=== PATIENT | female | born 1955 | race Caucasian/White ===

== ENCOUNTER 2020-02-11 22:26 | Emergency (ER) | payer OTHER, SELFPAY ==
[2020-02-11 22:32] VITALS: BP 217/120; PULSE 82; RESP 16; TEMP 36.7; O2SAT 97; BMI 27.4
--- NOTE | 2020-02-11 22:39 | PC.NURSE ---
EKG done at 2240 and shown to ER doctor
--- NOTE | 2020-02-11 22:47 | PC.NURSE ---
UA collected and sent to lab
[2020-02-11 22:52] VITALS: BP 190/91; PULSE 72; RESP 16; O2SAT 96
--- NOTE | 2020-02-11 22:58 | ECG_ITS ---
Measurements Intervals [place] Rate: 81 P: 59 LA: 179 QRS: 53 QRSD: 106 T: 63 QT: 367 QTc: 427 SINUS RHYTHM Compared to ECG 10/12/2015 06:37:54 T-wave abnormality no longer present Possible ischemia no longer present Electronically Signed On 02-12-2020 16:19:45 CDT by Bety Brown M.D. [id number] f
--- NOTE | 2020-02-11 22:58 | XRR_ITS ---
PROCEDURE INFORMATION: Exam: XR Chest, 1 View Exam date and time: 02/11/2020 11:01 PM Age: 64 years old Clinical indication: Chest pain; Prior surgery; Surgery type: Stents, loop recorder; Additional info: Cp TECHNIQUE: Imaging protocol: XR of the chest Views: 1 view. COMPARISON: CR Chest 1 [place] [id number] 10/10/2015 11:10 PM FINDINGS: Tubes, catheters and devices: Electronic device suggestive of loop recorder is noted over the cardiac shadow. Heart size is normal. Mediastinum is unremarkable. Lungs: Unremarkable. No consolidation. Pleural space: No pneumothorax. Heart/Mediastinum: See Tubes, catheters and devices finding. Bones/joints: No acute findings. XR/XR chest 1V portable [id number] IMPRESSION: No acute findings.
[2020-02-11 23:22] LABS: Basophils % 0.5 %; Eosinophils # 0.2 10^3/uL (0.0-0.8); Eosinophils % 1.9 %; Hematocrit 43.7 % (37.0-47.0); Hemoglobin 14.5 g/dL (11.5-15.3); Lymphocytes # 2.3 10^3/uL (0.8-4.8); Lymphocytes % 29.2 %; Mean Corpuscular HGB Conc 33.2 g/dL (30.0-36.0); Mean Corpuscular Hemoglobin 29.2 pg (28.0-34.0); Mean Corpuscular Volume 87.9 fL (81-99); Mean Platelet Volume 10.8 fL (7.4-10.4); Monocytes # 0.7 10^3/uL (0.2-0.9); Monocytes % 8.3 %; Neutrophils # 4.6 10^3/uL (1.8-7.7); Neutrophils % 59.6 %; Nucleated Red Blood Cells % 0 %; Platelet Count 201 10^3/cmm (130-400); Red Blood Count 4.97 10^6/uL (4.1-5.3); Red Cell Distribution Width 11.9 % (12.1-15.1); White Blood Count 7.8 10^3/uL (4.0-10.0)
[2020-02-11] MEDS: nitroglycerin 1 gm/inch oint Pkt 1.5 INCH TOPICAL (23:26)
[2020-02-11 23:37] VITALS: BP 169/88; PULSE 66; RESP 16; O2SAT 96
[2020-02-11 23:40] LABS: Alanine Aminotransferase 23 U/L (0-33); Albumin Level 4.9 g/dL (3.5-5.2); Alkaline Phosphatase 71 IU/L (35-105); Anion Gap 20.1 (5-19); Aspartate Amino Transferase 21 U/L (0-32); Blood Urea Nitrogen 14 mg/dL (8-23); Calcium 10.5 mg/dL (8.5-10.5); Carbon Dioxide 22 mmol/L (22-29); Chloride 103 mmol/L (98-107); Creatinine Clr Calc Pharmacy 81.3622; Globulin 2.4 g/dL (1.3-4.6); Glomerular Filtration Rate 84.8 mL/min (90-130); Glucose 207 mg/dL (65-115); Osmolality Calculated 294 mOsm/kg (285-295); Potassium 4.1 mmol/L (3.5-5.1); Sodium 141 mmol/L (136-145); Total Bilirubin 0.2 mg/dL (0.15-1.2); Total Protein 7.3 g/dL (6.6-8.7)
[2020-02-11 23:41] LABS: Troponin(5th) Baseline 13 ng/mL (0-10)
--- NOTE | 2020-02-12 00:28 | PC.NURSE ---
EKG done at 0025 and shown to ER doctor
--- NOTE | 2020-02-12 00:58 | ECG_ITS ---
Measurements Intervals [place] Rate: 67 P: 51 HI: 181 QRS: 42 QRSD: 99 T: 79 QT: 399 QTc: 424 SINUS RHYTHM POSSIBLE ANTERIOR MYOCARDIAL INFARCTION , OF INDETERMINATE AGE [30 ms Q WAVE IN V3/V4, OR R < 0.2 mV IN V4] Compared to ECG 10/12/2015 06:37:54 Myocardial infarct finding now present T-wave abnormality no longer present Possible ischemia no longer present Electronically Signed On 02-12-2020 16:23:45 CDT by Bety Brown M.D. [id number]
[2020-02-12 01:29] LABS: Troponin 5 2HR 20.19 ng/mL (0-10); Troponin 5 2HR Delta 7.19 ABS# (0-10)
[2020-02-12 02:00] VITALS: BP 146/88; PULSE 72; RESP 16; O2SAT 96
[2020-02-12 03:15] VITALS: BP 150/90; PULSE 68; RESP 16; O2SAT 98
--- NOTE | 2020-02-12 04:50 | ED_ITS ---
HPI - Chest Pain General: Chief Complaint: Chest Pain Stated Complaint: CHEST PAIN Time Seen by Provider: 02/11/20 22:57 History of Present Illness: HPI narrative: 64-year-old lady with a history of coronary disease. She presents after an episode of chest discomfort tonight. She was quite hypertensive at home so she comes in with these complaints. She denies any significant shortness of breath, nausea, diaphoresis, etc. She denies cough or fever. She last had a cardiac intervention 3 years ago. 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 Onset (ago): hour(s) Timing of current episode: episodic Prior episodes: Yes Onset: during rest Associated symptoms: Deny abdominal pain, dyspnea, fever(s), nausea, palpitations or vomiting Review of Systems Const: Denies: fever or chills Eyes: Denies: change in vision or blurry vision ENMT: Denies: painful swallowing, swelling of lips/tongue, bleeding gums, dental pain, Change in hearing, nose bleeds, post nasal drip or facial/sinus pain Card: Reports: chest pain; Denies: palpitations, irregular heart rhythm, edema, swelling of feet/ankles, shortness of breath on exertion or shortness of breath when lying down Resp: Denies: shortness of breath, productive cough, non-productive cough or wheezing GI: Denies: abdominal pain, nausea, vomiting, rectal pain, blood in stool or black tarry stool : Denies: painful urination, urinary frequency, urinary urgency or blood in urine Musc: Denies: neck pain, back pain, redness or joint warmth Skin/Breast: Denies: rash, itching or redness Neuro: Denies: headache, dizziness, vertigo, confusion or seizure-like activity Psych: Denies: anxiety PFSH ED PFSH: Social History Smoking and tobacco status: former smoker Alcohol intake: never Marital status: Current gender identity: Female Physical Exam Const: GENERAL APPEARANCE: well developed ORIENTATION/CONSCIOUSNESS: Yes oriented to person, Yes oriented to place and Yes oriented to time HENMT: COMMON NORMALS: external ears normal and external nose normal FACE & SINUS: normal facial exam NOSE: external nose normal and no nasal discharge EXTERNAL EAR: Yes external ears normal MOUTH: tongue normal Eye: COMMON NORMALS: PERRL, EOMs intact bilaterally and conjunctivae normal EYELID: eyelids normal CONJUNCTIVA: Yes conjunctivae normal PUPIL: Yes PERRL Neck/C-Spine: CERVICAL SPINE: No cervical spine tenderness Chest: COMMONS NORMALS: inspection of chest normal CHEST: No tenderness Resp: COMMON NORMALS: clear to auscultation bilaterally EFFORT & INSPECTION: No tachypneic, No respiratory distress, No retractions, No uses accessory muscles and No tracheal deviation AUSCULTATION: clear to auscultation bilaterally, no rhonchi, no wheezes and lung sounds not diminished Cardio: COMMON NORMALS: regular rate and regular rhythm RATE: regular rate RHYTHM: regular rhythm HEART SOUNDS: no murmurs PERIPHERAL PULSES: radial pulses present GI: INSPECTION: No abdominal distension AUSCULTATION: No hyperactive bowel sounds and No hypoactive bowel sounds PALPATION: No guarding and No rigid PERCUSSION: no dullness to percussion and no tympanic to percussion Neuro: SENSORIUM/ORIENTATION: Yes oriented to person, Yes oriented to place and Yes oriented to time Psych: COMMON NORMALS: mental status grossly normal Skin: COMMON NORMALS: no rashes or lesions noted GENERAL SKIN EXAM: no rashes or lesions noted Course Vital Signs: Vital signs: Vital Signs Temperature 98.0 F 02/11/20 22:32 Pulse Rate 68 02/12/20 03:15 Respiratory Rate 16 02/12/20 03:15 Blood Pressure 150/90 02/12/20 03:15 Pulse Oximetry 98 02/12/20 03:15 MDM - Chest Pain MDM Narrative: Medical decision making narrative: 64-year-old lady presented with chest pain. She is pain-free now. She was quite hypertensive, this is improved after Nitropaste. Her troponin did not elevate at [address] segments show no acute ST changes. She had resolution of her symptoms. She liss l be allowed home for cardiology follow-up. Lab Data: Labs: Lab Results 02/11/20 02/11/20 02/11/20 Range/Units 22:50 22:50 22:50 WBC 7.8 (4.0-10.0) 10^3/ uL RBC 4.97 (4.1-5.3) 10^6/u L Hgb 14.5 (11.5-15.3) g/dL Hct 43.7 (37.0-47.0) % MCV 87.9 (81-99) fL MCH 29.2 (28.0-34.0) pg MCHC 33.2 (30.0-36.0) g/dL RDW 11.9 L (12.1-15.1) % Plt Count 201 (130-400) 10^3/c mm MPV 10.8 H (7.4-10.4) fL Neut % (Auto) 59.6 % Lymph % (Auto) 29.2 % [place] % (Auto) 8.3 % Eos % (Auto) 1.9 % Baso % (Auto) 0.5 % Neut # (Auto) 4.6 (1.8-7.7) 10^3/u L Lymph # (Auto) 2.3 (0.8-4.8) 10^3/u L [place] # (Auto) 0.7 (0.2-0.9) 10^3/u L Eos # (Auto) 0.2 (0.0-0.8) 10^3/u L Baso # (Auto) 0.0 (0.0-0.1) 10^3/u L Nucleated RBC % (a uto) 0 % Nucleated RBCs # 0.0 /100WBC Sodium 141 (136-145) mmol/L Potassium 4.1 (3.5-5.1) mmol/L Chloride 103 (98-107) mmol/L Carbon Dioxide 22 (22-29) mmol/L Anion Gap 20.1 H (5-19) BUN 14 (8-23) mg/dL Creatinine 0.7 (0.5-0.9) mg/dL GFR Calculation 84.8 L (90-130) mL/min Glucose 207 H (65-115) mg/dL Calculated Osmolal ity 294 (285-295) mOsm/k g Calcium 10.5 (8.5-10.5) mg/dL Total Bilirubin 0.2 (0.15-1.2) mg/dL AST 21 (0-32) U/L ALT 23 (0-33) U/L Alkaline Phosphata se 71 (35-105) IU/L Troponin T Baselin e 13 H (0-10) ng/mL Troponin T 120 Min [place] (0-10) ng/mL Delta Troponin T (0-10) ABS# Total Protein 7.3 (6.6-8.7) g/dL Albumin 4.9 (3.5-5.2) g/dL Globulin 2.4 (1.3-4.6) g/dL 02/12/20 Range/Units 01:05 WBC (4.0-10.0) 10^3/ uL RBC (4.1-5.3) 10^6/u L Hgb (11.5-15.3) g/dL Hct (37.0-47.0) % MCV (81-99) fL MCH (28.0-34.0) pg MCHC (30.0-36.0) g/dL RDW (12.1-15.1) % Plt Count (130-400) 10^3/c mm MPV (7.4-10.4) fL Neut % (Auto) % Lymph % (Auto) % [place] % (Auto) % Eos % (Auto) % Baso % (Auto) % Neut # (Auto) (1.8-7.7) 10^3/u L Lymph # (Auto) (0.8-4.8) 10^3/u L [place] # (Auto) (0.2-0.9) 10^3/u L Eos # (Auto) (0.0-0.8) 10^3/u L Baso # (Auto) (0.0-0.1) 10^3/u L Nucleated RBC % (a uto) % Nucleated RBCs # /100WBC Sodium (136-145) mmol/L Potassium (3.5-5.1) mmol/L Chloride (98-107) mmol/L Carbon Dioxide (22-29) mmol/L Anion Gap (5-19) BUN (8-23) mg/dL Creatinine (0.5-0.9) mg/dL GFR Calculation (90-130) mL/min Glucose (65-115) mg/dL Calculated Osmolal ity (285-295) mOsm/k g Calcium (8.5-10.5) mg/dL Total Bilirubin (0.15-1.2) mg/dL AST (0-32) U/L ALT (0-33) U/L Alkaline Phosphata se (35-105) IU/L Troponin T Baselin e (0-10) ng/mL Troponin T 120 Min [place] 20.19 H (0-10) ng/mL Delta Troponin T 7.19 (0-10) ABS# Total Protein (6.6-8.7) g/dL Albumin (3.5-5.2) g/dL Globulin (1.3-4.6) g/dL Discharge Plan Discharge Patient Disposition: Home, Self-Care Clinical Impression: Hypertension Qualifiers: Hypertension type: essential hypertension Qualified Code(s): I10 - Essential (primary) hypertension Chest pain Qualifiers: Chest pain type: unspecified Qualified Code(s): R07.9 - Chest pain, unspecified Condition: Stable Prescriptions: No Action hlgrzibffh-hcnfidntuwqpp-wjgj 50-300-40 mg capsule 1 cap PO QID PRNRF: 0 nitroglycerin [Nitrostat] 0.4 mg tablet, sublingual 0.4 mg SUBLINGUAL Q5M PRNRF: 0 hydrocortisone 2.5 % cream with applicator VA QID PRN (Reason: hemorrhoids) RF: 0 aspirin [Adult Low Dose Aspirin] 81 mg tablet,delayed release (DR/EC) 81 mg PO QDAY RF: 0 lisinopril 10 mg tablet 10 mg PO QDAY RF: 0 hydrocortisone acetate 2.5 % cream with perineal applicator 1 applic VA QDAY PRN (Reason: hemorrhoids) 90 Days Qty: 60 RF: 2 famotidine [Pepcid] 40 mg tablet 40 mg PO QDAY Qty: 90 RF: 2 zolpidem [Ambien] 5 mg tablet 5 mg PO .HS Qty: 90 RF: 0 Discharge Orders: Discharge Order (Routine); Ordered 02/12/20 Ordered By: Kian Rizzo Referrals: Naty Esqueda APN [Family Provider] - Monica Alex MD [Primary Care Provider] - 4-7 days Discharge Diet: Usual diet Discharge Activity: Increase activity as tolerated Patient Instructions: Chest Pain (ED), Hypertension (ED) Activity Restrictions/Additional Instructions: Check your blood pressure twice daily for the next several days. Write down numbers and report them to your physician. Return for repeated episodes of chest discomfort, shortness of breath, other concerning symptoms. If your blood pressure remains elevated, greater than 150 systolic or the top number, take an extra lisinopril for the day until seen by your physician. Discharge Date/Time: 02/12/20 03:29 Coding Level of Care Code ED Plant Anatomist for Loren Jones
== END 2020-02-12 03:29 | disposition home or self-care (01) ==
PROVIDERS: Emergency Provider Emergency Medicine; Family Provider Nurse Practitioner Family; PCP Family Medicine
DX: R07.9 Chest pain, unspecified (principal); I10 Essential (primary) hypertension; Z79.82 Long term (current) use of aspirin; Z87.891 Personal history of nicotine dependence
CPT/HCPCS: 12345; 71045; 80053; 84484; 85025; 93005; 99283; 99284

== ENCOUNTER → 2020-06-27 16:37 | Outpatient (BNVA) | payer OTHER, SELFPAY | PROVIDERS: Family Provider Nurse Practitioner Family; PCP Family Medicine; Visit Provider Nurse Practitioner Family | DX: Z20.828 Contact with and (suspected) exposure to other viral communicable diseases (principal) | CPT/HCPCS: 87635 ==

== ENCOUNTER → 2021-05-29 11:14 | Outpatient (BNVA) | payer OTHER, SELFPAY | PROVIDERS: Family Provider Nurse Practitioner Family; PCP Family Medicine; Visit Provider Nurse Practitioner Family | DX: Z20.822 Contact with and (suspected) exposure to COVID-19 (principal) | CPT/HCPCS: 87635 ==

== ENCOUNTER → 2021-06-04 11:08 | Outpatient (BNVA) | payer OTHER, SELFPAY | PROVIDERS: Family Provider Nurse Practitioner Family; PCP Family Medicine; Visit Provider Nurse Practitioner Family | DX: Z20.822 Contact with and (suspected) exposure to COVID-19 (principal) | CPT/HCPCS: 87635 ==

== ENCOUNTER → 2021-10-26 13:59 | Outpatient (BNVA) | payer OTHER, SELFPAY | PROVIDERS: Family Provider Nurse Practitioner Family; PCP Family Medicine; Visit Provider Nurse Practitioner Family | DX: Z20.822 Contact with and (suspected) exposure to COVID-19 (principal); J06.9 Acute upper respiratory infection, unspecified; J01.00 Acute maxillary sinusitis, unspecified | CPT/HCPCS: 87071; 87400; 87635; 87880 ==

== ENCOUNTER 2022-10-18 19:51 | Inpatient (IN) | payer OTHER, SELFPAY ==
[2022-10-18 19:56] VITALS: BMI 23.1
--- NOTE | 2022-10-18 20:03 | ECG_ITS ---
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 Measurements Intervals [place] Rate: 80 P: 131 AR: 222 QRS: 64 QRSD: 117 T: -36 QT: 386 QTc: 448 Interpretive Statements SINUS RHYTHM WITH FIRST DEGREE AV BLOCK WITH FREQUENT VENTRICULAR PREMATURE COMPLEXES IN A BIGEMINAL PATTERN POSSIBLE ANTERIOR MYOCARDIAL INFARCTION , OF INDETERMINATE AGE [30 ms Q WAVE IN V3/V4, OR R < 0.2 mV IN V4] Compared to ECG 02/12/2020 00:31:23 First degree AV block now present Myocardial infarct finding still present Electronically Signed On 10-19-2022 7:10:[address] DEPARTMENT DISPATCHER by Padmini Reese M.D. [id number] f
--- NOTE | 2022-10-18 20:20 | XRR_ITS ---
PROCEDURE INFORMATION: Exam: XR Chest Exam date and time: 10/18/2022 8:32 PM Age: 66 years old Clinical indication: Angina; Prior surgery; Surgery date: 6+ months; Additional info: Chest pain TECHNIQUE: Imaging protocol: Radiologic exam of the chest. Views: 1 view. COMPARISON: CR XR chest 1V portable [id number] 02/11/2020 11:05 PM FINDINGS: Tubes, catheters and devices: Loop recorder device noted in the left chest wall. Lungs: Hyperinflated lungs. No consolidation. Pleural spaces: Unremarkable. No pleural effusion. No pneumothorax. Heart/Mediastinum: Unremarkable. No cardiomegaly. Bones/joints: Unremarkable. XR/XR chest 1V portable [id number] IMPRESSION: No acute findings.
--- NOTE | 2022-10-18 20:27 | W.ED.CHESTPA ---
HPI - Chest Pain General: Chief Complaint: Chest Pain Stated Complaint: CP PAIN Time Seen by Provider: 10/18/22 20:09 History of Present Illness: This 66-year-old female with an extensive history of coronary artery disease and peripheral vascular disease presents to the ER with chest pain that started earlier today around 5 PM. Patient notes that she was at work at the time pain started. She describes it as a sharp stabbing pain with a lot of pressure. Pain radiated to the right jaw and right arm. She took 1 dose of nitroglycerin and when pain persisted She knew she needed to come to the hospital. She describes it as more of 6 out of 10 pressure right now. Patient adds that this reminds her of a heart attack she had in 2019. She has a history of coronary artery disease and has 4 coronary artery stents, 2 renal and one femoral stents. She has a loop recorder that was placed in December 2019. Review of Systems Const: Denies: chills, body aches or change in appetite Eyes: Denies: change in vision or eye discharge ENMT: Denies: throat pain, dental pain or nasal discharge Card: Reports: chest pain; Denies: lightheadedness : Denies: dysuria Musc: Denies: neck pain or back pain Neuro: Denies: headache(s) or weakness in extremities Psych: Denies: depression Lb/Lymph: Denies: easy bruising All/Imm: Denies: urticaria, tongue swelling or facial swelling PFS ED PFSH: Medical History (Updated 10/18/22 @ 21:47 by Nicolás Montero MD) Anemia Anxiety ASHD (arteriosclerotic heart disease) Hyperlipidemia Hypertension Insomnia Murmur PVC (premature ventricular contraction) Social History Alcohol intake: never Marital status: Current gender identity: Female Physical Exam Const: COMMON NORMALS: no acute distress, patient oriented x3, no limitations and alert HENMT: COMMON NORMALS: normocephalic HEAD & SCALP: normocephalic Eye: COMMON NORMALS: EOMs intact bilaterally Neck/C-Spine: COMMON NORMALS: full ROM and supple Chest: COMMONS NORMALS: normal inspection of the chest Resp: COMMON NORMALS: normal respiratory effort, No retractions, No use of accessory muscles and clear to auscultation bilaterally AUSCULTATION: clear to auscultation bilaterally Cardio: COMMON NORMALS: regular rate and No murmurs present (Cardio) RATE: regular rate RHYTHM: abnormal rhythm (irregular rhythm) GI: COMMON NORMALS: Normal to inspection, nondistended, normoactive bowel sounds present and non-tender : COMMON NORMALS: Yes no CVA tenderness BLADDER/KIDNEY EXAM: Yes no CVA tenderness Back/Pelvis: COMMON NORMALS: no CVA tenderness and no thoracic nor lumbar tenderness Extremity: GENERAL: Yes normal exam except as noted Neuro: COMMON NORMALS: patient oriented x3 and no focal motor deficits SENSORIUM/ORIENTATION: Yes alert Psych: COMMON NORMALS: mental status grossly normal and cooperative Course Vital Signs: Vital signs: Vital Signs Pulse Rate 57 L 10/18/22 22:31 Respiratory Rate 18 10/18/22 22:44 Blood Pressure 146/64 10/18/22 22:44 Pulse Oximetry 98 10/18/22 22:44 Oxygen Delivery Me thod 10/18/22 22:30 MDM - Chest Pain Medical Decision Making Medical decision making: Patient presents to the ER with chest pain. Work-up reveals severe hypokalemia with potassium of 2.5. Oral and IV potassium started in the ER. She will be admitted for further work-up and potassium repletion. Case discussed with Dr. Dumont who accepted patient for admission. Lab Data 10/18/22 19:17 10/18/22 19:17 Radiology Impressions Chest X-Ray 10/18/22 20:20 IMPRESSION: No acute findings. Laboratory Results WBC 8.4 10^3/uL (4.0-10.0) 10/18/22 19:17 RBC 4.95 10^6/uL (4.1-5.3) 10/18/22 19:17 Hgb 11.5 g/dL (11.5-15.3) 10/18/22 19:17 Hct 36.7 % (37.0-47.0) L 10/18/22 19:17 MCV 74.1 fl (81-99) L 10/18/22 19:17 MCH 23.2 pg (28.0-34.0) L 10/18/22 19:17 MCHC 31.3 g/dL (30.0-36.0) 10/18/22 19:17 RDW 15.9 % (12.1-15.1) H 10/18/22 19:17 Plt Count 301 10^3/cmm (130-400) 10/18/22 19:17 MPV 11.2 fL (7.4-10.4) H 10/18/22 19:17 Neut % (Auto) 61.0 % 10/18/22 19:17 Lymph % (Auto) 29.0 % 10/18/22 19:17 [place] % (Auto) 7.9 % 10/18/22 19:17 Eos % (Auto) 1.4 % 10/18/22 19:17 Baso % (Auto) 0.5 % 10/18/22 19:17 Neut # (Auto) 5.09 10^3/uL (1.8-7.7) 10/18/22 19:17 Lymph # (Auto) 2.4 10^3/uL (0.8-4.8) 10/18/22 19:17 [place] # (Auto) 0.7 10^3/uL (0.2-0.9) 10/18/22 19:17 Eos # (Auto) 0.1 10^3/uL (0.0-0.8) 10/18/22 19:17 Baso # (Auto) 0.0 10^3/uL (0.0-0.1) 10/18/22 19:17 Nucleated RBC % (auto) 0 % 10/18/22 19:17 Nucleated RBCs # 0.0 /100WBC 10/18/22 19:17 Sodium 138 mmol/L (136-145) 10/18/22 19:17 Potassium 2.5 mmol/L (3.5-5.1) L* 10/18/22 19:17 Chloride 95 mmol/L (98-107) L 10/18/22 19:17 Carbon Dioxide 29 mmol/L (22-29) 10/18/22 19:17 Anion Gap 16.5 (5-19) 10/18/22 19:17 BUN 11 mg/dL (8-23) 10/18/22 19:17 Creatinine 0.8 mg/dL (0.5-0.9) 10/18/22 19:17 GFR Calculation 72.2 mL/min (90-130) L 10/18/22 19:17 Glucose 180 mg/dL (65-115) H 10/18/22 19:17 Calculated Osmolality 290 mOsm/kg (285-295) 10/18/22 19:17 Calcium 9.8 mg/dL (8.5-10.5) 10/18/22 19:17 Total Bilirubin 0.2 mg/dL (0.15-1.2) 10/18/22 19:17 AST 15 U/L (0-32) 10/18/22 19:17 ALT 12 U/L (0-33) 10/18/22 19:17 Alkaline Phosphatase 83 U/L (35-105) 10/18/22 19:17 Troponin T Baseline 17 ng/L (0-10) H 10/18/22 19:17 Troponin T 120 [place] 21.76 ng/L (0-10) H 10/18/22 21:00 Delta Troponin T 4.76 ABS# (0-10) 10/18/22 21:00 NT-Pro-B Natriuret Pep 373 pg/mL (0-125) H 10/18/22 19:17 NT-Pro-B Natriuret Pep 380 pg/mL (0-125) H 10/18/22 19:17 Total Protein 7.7 g/dL (6.6-8.7) 10/18/22 19:17 Albumin 4.6 g/dL (3.5-5.2) 10/18/22 19:17 Globulin 3.1 g/dL (1.3-4.6) 10/18/22 19:17 Triglycerides 199 mg/dL (0-150) H 10/18/22 19:17 Cholesterol 264 mg/dL (0-200) H 10/18/22 19:17 LDL Cholesterol, Calc 151 mg/dL (50-129) H 10/18/22 19:17 HDL Cholesterol 73 mg/dL (60-100) 10/18/22 19:17 LDL/HDL Ratio 2.07 RATIO (0.00-3.22) 10/18/22 19:17 Cholesterol/HDL Ratio 3.62 mg/dL (0.0-4.40) 10/18/22 19:17 Procalcitonin 0.08 ng/mL (0-0.5) 10/18/22 19:17 TSH 2.85 uIU/mL (0.27-4.20) 10/18/22 19:17 Discharge Plan Discharge Patient Disposition: Admitted As Inpatient Admit Provider: Nkechi Dumont Clinical Impression: Acute hypokalemia, Chest pain, rule out acute myocardial infarction Condition: Stable Coding Level of Care Code ED Outsole Compressor for Chg Fwd Exam Comprehensive
[2022-10-18] MEDS: nitroglycerin 0.4 mg sublingual Tablet SUBLINGUAL ×2 (20:34→23:48)
[2022-10-18 20:35] LABS: Basophils % 0.5 %; Eosinophils # 0.1 10^3/uL (0.0-0.8); Eosinophils % 1.4 %; Hematocrit 36.7 % (37.0-47.0); Hemoglobin 11.5 g/dL (11.5-15.3); Lymphocytes # 2.4 10^3/uL (0.8-4.8); Mean Corpuscular HGB Conc 31.3 g/dL (30.0-36.0); Mean Corpuscular Hemoglobin 23.2 pg (28.0-34.0); Mean Corpuscular Volume 74.1 fl (81-99); Mean Platelet Volume 11.2 fL (7.4-10.4); Monocytes # 0.7 10^3/uL (0.2-0.9); Monocytes % 7.9 %; Neutrophils # 5.09 10^3/uL (1.8-7.7); Nucleated Red Blood Cells % 0 %; Platelet Count 301 10^3/cmm (130-400); Red Blood Count 4.95 10^6/uL (4.1-5.3); Red Cell Distribution Width 15.9 % (12.1-15.1); White Blood Count 8.4 10^3/uL (4.0-10.0)
[2022-10-18 20:45] LABS: Troponin(5th) Baseline 17 ng/L (0-10)
[2022-10-18 20:54] LABS: Alanine Aminotransferase 12 U/L (0-33); Albumin Level 4.6 g/dL (3.5-5.2); Alkaline Phosphatase 83 U/L (35-105); Anion Gap 16.5 (5-19); Aspartate Amino Transferase 15 U/L (0-32); Blood Urea Nitrogen 11 mg/dL (8-23); Calcium 9.8 mg/dL (8.5-10.5); Carbon Dioxide 29 mmol/L (22-29); Chloride 95 mmol/L (98-107); Globulin 3.1 g/dL (1.3-4.6); Glomerular Filtration Rate 72.2 mL/min (90-130); Glucose 180 mg/dL (65-115); NT Pro B Type Natriuretic Pept 373 pg/mL (0-125); Osmolality Calculated 290 mOsm/kg (285-295); Sodium 138 mmol/L (136-145); Total Bilirubin 0.2 mg/dL (0.15-1.2); Total Protein 7.7 g/dL (6.6-8.7)
[2022-10-18 20:56] LABS: Potassium 2.5 mmol/L (3.5-5.1)
[2022-10-18] MEDS: potassium chloride premix 100 ML 50 MEQ IV (21:16)
[2022-10-18] MEDS: potassium chloride ER 20 mEq Tablet 40 MEQ PO (21:17)
[2022-10-18 21:25] LABS: Troponin 5 2HR 21.76 ng/L (0-10)
[2022-10-18 21:26] LABS: Troponin 5 2HR Delta 4.76 ABS# (0-10)
--- NOTE | 2022-10-18 21:42 | P.HP_ITS ---
Providers/Chief Complaint Primary Care Provider: Monica Alex MD Chief Complaint: CP PAIN History of Present Illness Heather Young is a 66 year old female with past medical history of hyperlipidemia, hypertension, anxiety, coronary artery disease status post stents x4, 2 stents in renal arteries, 1 stent and femoral artery presented to the hospital today for chest pain that has been going on for the last 3 days. She says it overall the pain has been happening since last few weeks however in the last 3 days it has worsened. She has been given a nitro patch by her online communications specialist in [place] which she has been wearing. The pain has gotten better with that. She has been taking nitro orally as well and usually the pain goes away but now it has stayed therefore she is now using nitro patches which have helped. At this time of my evaluation she is chest pain-free. Initial troponin is 21. Rest of troponins are pending at this time. She says the pain seems like a brick sitting on her chest and feels like her previous MIs. Otherwise denies any shortness of breath. When the pain does occur it radiates to her right jaw and right arm. She says she chronically has right lower extremity weakness. She says when she had her catheter in 2019 apparently her femoral artery was stitched shut and she developed critical limb ischemia which was recognized 30 hours later. Since then she has had significant muscle loss and w eakness. She cannot walk without a cane and calf muscle support device. Patient says she is on Plavix and Xarelto at home. She lives in [facility] and wanted to go to the nearest ER therefore came to [place]. However all her cardiological care is at [place]. Her primary care doctor is Naty Valdez. At this time patient denies any nausea, vomiting, diarrhea, abdominal pain, chest pain, shortness of breath. She appears very comfortable sitting up in bed. In the ER she was found to be severely hypokalemic with a potassium of 2.5. Oral and IV potassium was given to her. Initial EKG negative for any acute ischemic changes but did show a first-degree AV block. Troponins are being trended at this time. Medications/Allergies Home Medications Medication Instructions Recorded Confirmed Last Taken Type nitroglycerin 0.4 mg sublingual 0.4 mg sublingual Q5M PRN Chest 11/04/19 10/18/22 10/18/22 21:00 History tablet (Nitrostat) Pain iqilfvkfke-zpfojkbyifevq-yvqvtnmj 1 cap PO QID PRN pain #60 caps 02/22/21 10/18/22 Unknown Rx 50 mg-300 mg-40 mg capsule clopidogrel 75 mg tablet (Plavix) 75 mg PO DAILY 08/14/21 10/18/22 10/18/22 06:00 History oxycodone-acetaminophen 10 mg-325 1 tab PO Q6H PRN pain 30 days #120 08/16/21 10/19/22 10/18/22 21:00 Rx mg tablet (Percocet) tabs Jardiance 25 mg PO 1XD 10/19/22 10/19/22 10/18/22 06:00 History Vitamin D3 Complete 10/19/22 10/18/22 06:00 History eszopiclone 3 mg tablet (Lunesta) 3 mg 10/19/22 10/17/22 21:00 History hydrochlorothiazide 25 mg tablet 25 mg PO DAILY 10/19/22 10/19/22 10/18/22 06:00 History pantoprazole 40 mg tablet,delayed 40 mg PO DAILY 10/19/22 10/19/22 10/18/22 06:00 History release potassium chloride 10 mEq 10 meq PO BID 10/19/22 10/19/22 10/17/22 18:00 History capsule,extended release rivaroxaban 2.5 mg tablet (Xarelto) 2.5 mg PO BID 10/19/22 10/19/22 10/18/22 06:00 History verapamil 240 mg tablet,extended 120 mg PO DAILY 10/19/22 10/19/22 10/18/22 06:00 History release Allergies Allergy/AdvReac Type Severity Reaction Status Date / Time iron Allergy UNK Verified 08/16/21 11:51 lansoprazole [From Prevacid] Allergy UNK Verified 08/16/21 11:51 PFSH Acute PFSH: Medical History (Updated 10/19/22 @ 04:22 by Nkechi Dumont MD) Anemia Anxiety ASHD (arteriosclerotic heart disease) Hyperlipidemia Hypertension Insomnia Murmur PVC (premature ventricular contraction) Social History Alcohol intake: never Marital status: Current gender identity: Female Vitals/I&O/Wt Weight last 48 hrs Weight 61.235 kg Physical Exam Narrative: General: Alert oriented x3, patient seen sitting up in bed appearing comfortable at this time on room air. HEENT: Normocephalic, atraumatic, EOMI, breathing normally and comfortably. No acute respiratory distress. No chest pain at this time. Cardio: Regular rate rhythm, normal S1-S2 Respiratory: Good bilateral air entry, no wheezes no rhonchi appreciated GI: Abdomen soft, nontender, nondistended, bowel sounds + Behavior: Appropriate and cooperative Extremities: No bilateral lower extremity edema. Neuro: Able to move all 4 extremities. Right leg definitely weaker than left. She is able to raise it above the bed however. Face is symmetrical. Data 10/18/22 19:17 10/18/22 19:17 A&P Assessment and plan (1) Acute hypokalemia: (2) Chest pain, rule out acute myocardial infarction: (3) Atrial fibrillation: Qualifiers: Atrial fibrillation type: persistent (not longstanding) Qualified Code(s): I48.19 - Other persistent atrial fibrillation (4) Hyperlipidemia: (5) Hypertension: Qualifiers: Hypertension type: essential hypertension Qualified Code(s): I10 - Essential (primary) hypertension (6) Unstable angina: (7) Coronary artery disease: (8) Stented coronary artery: Plan #Chest pain/unstable angina #History of CAD status post stents x4 #Peripheral vascular disease #Stented renal arteries, femoral artery #History of hyperlipidemia, hypertension #Severe hypokalemia ? Replete potassium. Keep above 4 ? Continue verapamil, pantoprazole, hydrochlorothiazide, Plavix ? Start aspirin 81 daily ? 2-hour troponin 54.27. Positive delta 4.76. ? Continue on Xarelto. It is nonformulary. Patient's daughter will bring her to the hospital in the morning. Patient states she has taken all her doses of her medications today. ? Check hemoglobin A1c, TSH, procalcitonin, lipid profile ? Check echo for wall motion abnormalities ? We will consult cardiology. Stress testing will not be available till Friday morning. ? Serial EKGs ? Start patient on heparin drip Full code DVT prophylaxis: Patient is on Xarelto. Attestations Medical Necessity Statement*: Will cross greater than 2 midnight stay for management of unstable angina Coding Level of Care Code Acute Bicycle I Assembler for Chg Fwd Diagnoses Acute hypokalemia E87.6 Chest pain, rule out acute myocardial infarction R07.9 Atrial fibrillation I48.19 Atrial fibrillation type: persistent (not longstanding) Hyperlipidemia E78.5 Hypertension I10 Hypertension type: essential hypertension Unstable angina I20.0 Coronary artery disease I25.10 Stented coronary artery Z95.5
--- NOTE | 2022-10-18 22:20 | ECG_ITS ---
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 Measurements Intervals [place] Rate: 54 P: 137 DE: 224 QRS: 63 QRSD: 99 T: 117 QT: 477 QTc: 453 Interpretive Statements SINUS BRADYCARDIA WITH FIRST DEGREE AV BLOCK POSSIBLE ANTERIOR MYOCARDIAL INFARCTION , OF INDETERMINATE AGE [30 ms Q WAVE IN V3/V4, OR R < 0.2 mV IN V4] Compared to ECG 02/12/2020 00:31:23 First degree AV block now present Sinus rhythm no longer present Myocardial infarct finding still present Electronically Signed On 10-20-2022 20:08:32 TANK TRUCK MECHANIC by Eboni Aguirre M.D. [id number]
[2022-10-18 22:26] LABS: NT Pro B Type Natriuretic Pept 380 pg/mL (0-125); Procalcitonin 0.08 ng/mL (0-0.5); Thyroid Stimulating Hormone 2.85 uIU/mL (0.27-4.20)
[2022-10-18 22:30] VITALS: BP 146/64; PULSE 52; RESP 18; O2SAT 99
[2022-10-18 22:31] VITALS: BP 178/62; PULSE 57; RESP 22; O2SAT 96
[2022-10-18 22:36] LABS: Chol HDL Ratio 3.62 mg/dL (0.0-4.40); Cholesterol 264 mg/dL (0-200); HDL Cholesterol 73 mg/dL (60-100); LDL Cholesterol Calculated 151 mg/dL (50-129); LDL HDL Ratio 2.07 RATIO (0.00-3.22); Triglycerides 199 mg/dL (0-150)
[2022-10-18 22:44] VITALS: BP 146/64; RESP 18; O2SAT 98
[2022-10-18 23:57] VITALS: BP 124/62; PULSE 64; RESP 22; TEMP 36.8; O2SAT 95
[2022-10-19] VITALS (13 sets, daily range): BP systolic 102–158; BP diastolic 49–79; PULSE 48–79; RESP 16–28; TEMP 36.6–37.3; O2SAT 93–100
--- NOTE | 2022-10-19 00:03 | PC.NURSE ---
Contacted Dr. Dumont regarding patient questions about taking xarelto & plavix at home and heparin here at hospital. Verbal order received to not give heparin.
--- NOTE | 2022-10-19 01:24 | USCV_ITS ---
Heather Young Age: 66 Gender: F : 1955 Exam Date: 10/19/2022 12:10 Ordering Phys: Nkechi Dumont MD Technologist: SERGEI Exam Location: [facility] [place] Indication: Chest pain BP: 150 / 67 HR: 56 Rhythm: Sinus Technical Quality: Adequate MEASUREMENTS (Male / Female) Normal Values 2D ECHO LV Diastolic Diameter PLAX 5.5 cm 4.2 - 5.9 / 3.9 - 5.3 cm LV Systolic Diameter PLAX 3.7 cm IVS Diastolic Thickness 0.7 cm 0.6 - 1.0 / 0.6 - 0.9 cm IVS Systolic Thickness 1.2 cm LVPW Diastolic Thickness 0.8 cm 0.6 - 1.0 / 0.6 - 0.9 cm LVPW Systolic Thickness 1.1 cm LVOT Diameter 2.3 cm LV Ejection Fraction 2D Teich 58.7 % LV Ejection Fraction MOD 2C 43.6 % LV Ejection Fraction 2C AL 45.4 % LA Diameter 3.5 cm IVC Diameter 2.1 cm M-MODE Aortic Annulus Diameter 2.5 cm LA Ao Ratio MM 1.6 MV E Point Septal Separation 1.3 cm DOPPLER AV Peak Velocity 182.0 cm/s LVOT Peak Velocity 84.0 cm/s AV Area Cont Eq vti 1.9 cm squared AV Area Cont Eq pk 1.9 cm squared MV Area PHT 3.2 cm squared Mitral E to A Ratio 0.8 MV E' Velocity 38.0 cm/s Mitral E to MV E' Ratio 11.0 Mitral E to LV E' Lateral Ratio 9.5 Mitral E to LV E' Septal Ratio 13.3 TR Peak Velocity 144.0 cm/s TR Peak Gradient 8.3 mmHg TV Peak E Velocity 57.0 cm/s PV Peak Velocity 90.3 cm/s FINDINGS Left Ventricle Severe diffuse hypokinesia of the inferolateral and lateral wall segments. Mildly dilated LV cavity. LV ejection fraction around 45%.Grade I/IV diastolic dysfunction (abnormal relaxation filling pattern), normal to mildly elevated filling pressures. Right Ventricle The right ventricle is normal in size and function. Right Atrium The right atrium is normal in size. Left Atrium Mildly increased left atrial size. Mitral Valve Thickened mitral valve. Trace mitral valve regurgitation. Aortic Valve Mild aortic valve calcification. Trace aortic valve regurgitation. Tricuspid Valve No gross abnormalities noted Pulmonic Valve No gross abnormalities noted Pericardium Normal pericardium without effusion. Aorta Normal aortic annulus size. IVC Normal inferior vena cava. CONCLUSIONS Severe diffuse hypokinesia of the inferolateral and lateral wall segments. Mildly dilated LV cavity. LV ejection fraction around 45%. Grade I/IV diastolic dysfunction (abnormal relaxation filling pattern), normal to mildly elevated filling pressures. Mildly increased left atrial size. Thickened mitral valve. Trace mitral valve regurgitation. Mild aortic valve calcification. Trace aortic valve regurgitation. There is no pericardial effusion. There are no intracardiac masses. Compared to the study from 10/12/2015, there is a significant drop in the LV ejection fraction from 64% to 45%. Dr Eboni Aguirre MD FACC (Electronically Signed) Final Date: 19 October 2022 21:19 S
--- NOTE | 2022-10-19 01:30 | ECG_ITS ---
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 Measurements Intervals [place] Rate: 58 P: 51 MO: 212 QRS: 49 QRSD: 102 T: -33 QT: 449 QTc: 442 Interpretive Statements SINUS BRADYCARDIA WITH FIRST DEGREE AV BLOCK POSSIBLE ANTERIOR MYOCARDIAL INFARCTION , OF INDETERMINATE AGE [30 ms Q WAVE IN V3/V4, OR R < 0.2 mV IN V4] Nonspecific T wave changes Compared to ECG 10/18/2022 22:39:16 No significant changes Electronically Signed On 10-20-2022 20:11:38 CLERK STENOGRAPHER by Eboni Aguirre M.D. [id number]
[2022-10-19 02:09] LABS: Estmated Average Glucose 197; Hemoglobin A1C 8.5 % (4.0-6.0)
[2022-10-19 02:45] LABS: Basophils % 0.4 %; Eosinophils # 0.1 10^3/uL (0.0-0.8); Eosinophils % 0.8 %; Hematocrit 36.6 % (37.0-47.0); Hemoglobin 11.1 g/dL (11.5-15.3); Lymphocytes # 2.2 10^3/uL (0.8-4.8); Lymphocytes % 24.1 %; Mean Corpuscular HGB Conc 30.3 g/dL (30.0-36.0); Mean Corpuscular Hemoglobin 23.4 pg (28.0-34.0); Mean Corpuscular Volume 77.1 fl (81-99); Mean Platelet Volume 10.8 fL (7.4-10.4); Monocytes # 0.7 10^3/uL (0.2-0.9); Monocytes % 7.9 %; Neutrophils # 6.01 10^3/uL (1.8-7.7); Neutrophils % 66.6 %; Nucleated Red Blood Cells % 0 %; Platelet Count 258 10^3/cmm (130-400); Red Blood Count 4.75 10^6/uL (4.1-5.3); Red Cell Distribution Width 15.9 % (12.1-15.1)
[2022-10-19 03:09] LABS: Alanine Aminotransferase 11 U/L (0-33); Albumin Level 4.2 g/dL (3.5-5.2); Alkaline Phosphatase 71 U/L (35-105); Aspartate Amino Transferase 15 U/L (0-32); Blood Urea Nitrogen 11 mg/dL (8-23); Calcium 9.2 mg/dL (8.5-10.5); Carbon Dioxide 28 mmol/L (22-29); Chloride 99 mmol/L (98-107); Globulin 2.5 g/dL (1.3-4.6); Glomerular Filtration Rate 84.2 mL/min (90-130); Glucose 157 mg/dL (65-115); Magnesium 1.9 mg/dL (1.7-2.3); Osmolality Calculated 291 mOsm/kg (285-295); Sodium 139 mmol/L (136-145); Total Bilirubin 0.2 mg/dL (0.15-1.2); Total Protein 6.7 g/dL (6.6-8.7)
[2022-10-19 03:58] LABS: Troponin 5 6HR 54.27 ng/L (0-10)
[2022-10-19 04:00] LABS: Troponin 5 6HR Delta 37.27 ng/L (0-12)
[2022-10-19] MEDS: heparin drip 25,000 UNIT/500 ML PREMIX 17.15 UNIT IV (04:40)
--- NOTE | 2022-10-19 04:40 | PC.NURSE ---
Heparin bolus and infusion started at 0440 per protocol. WiFi down unable to scan meds.
[2022-10-19] MEDS: heparin 5,000 unit/mL INJ 1 mL IV ×3 (04:45→18:06)
[2022-10-19 04:59] LABS: INR 1.04 (0.8-1.2)
[2022-10-19] MEDS: ondansetron 2 mg/ML SDV 2 mL 4 MG IVP (05:04)
[2022-10-19] MEDS: oxyCODONE-APAP 10-325 mg Tablet 1 TAB PO ×3 (07:30→20:18)
--- NOTE | 2022-10-19 08:44 | P.CONIM_ITS ---
Providers/Reason For Consult Consulting Physician/Specialty*: ADRIENNE Aguirre MD/cardiology Reason for Consult*: Patient with a history of coronary disease and previous PCI's presenting with unstable angina/elevated troponin T Requesting Physician: Dr. Dumont Attending Physician: Patrice Clifford Primary Care Provider: Monica Alex MD History of Present Illness History of Present Illness Heather Young is a 66 year old female with a history of atherosclerotic heart disease, status post multiple PCI's, renal artery stenosis, status post renal artery stenting presenting with a 3 weeks history of chest pain. She was found to have elevated troponin T. Cardiology consult is requested for further cardiac evaluation recommendations. Apparently this patient has been in her baseline state of health up until 3 weeks ago when she started having chest pains. She described as a mid substernal pain, radiated to the left side of the neck, left shoulder and to the left arm. She may have associated shortness of breath, nausea and occasional sweating. The pain may go up to 9/10 intensity. She has been having chest pains almost every day. Each time it may last for several minutes to several hours. Yesterday the pain was getting more worse. Intensity of the pain was 10/10. For that reason, she was brought to the emergency room. She denies any fever or chills. No no cough. She was applying Nitropatch on both arms to r elieve the pain. She has been getting some relief of the pain upon yesterday when she did not have much of a relief. She is being followed by a medical office administrator in the [facility] in [place]. She had several angiograms in the past She had a coronary angiogram in 2012, 2014, 2016 and 2016. She had had PCI of the RCA and LAD in the past. Most recent angiogram in 2016 revealed patent stents in the LAD and the RCA. According to have the most recent angiogram was done in this hospital by Dr. Brown In 2019, she had stenting of both renal arteries at the [facility] in [place]. According the patient, while the physician was closing the femoral arteria puncture site, accidentally the artery got occluded and she ended up in staying in the hospital for 5 weeks or so. She almost lost her right leg. She is currently having numbness of the right foot and also chronic pain. In December 2020, she presented with pain and discoloration of the right leg. She had extensive clots in the iliac and femoral arteries. She underwent intervention of these at the [facility] in [place]. Details are not available. She has a history of hypertension, dyslipidemia and type 2 diabetes. She used to take metformin but because of stomach issues, she was taken off this medication. Currently she is taking Jardiance. She was found to be severely hypokalemic yesterday. She was given IV potassium supplement. Her potassium was 2.5 which went up to 3.0 this morning. She also is taking Xarelto 2.5 mg p.o. twice daily ever since the femoral artery intervention. She took the last dose yesterday morning. She is also on Plavix. She is taking oxycodone for the leg pain. At the time of my examination her chest pain is 2/10. She also has a history of ventricular arrhythmia. She had an attempted EP study 4 years ago. She was placed on a loop recorder 4 years ago which was explanted last December and a new loop recorder is in place now. The exact reason for the implant is not clear at this time. She also has a questionable history of bradycardia. Review of Systems Narrative: CONSTITUTIONAL: No fever or chills. EYES: No blurring of vision or other visual disturbances lately. ENT: No hoarseness of voice, auditory disturbances or sore throat. CARDIOVASCULAR: As mentioned above. RESPIRATORY: No significant cough. GASTROINTESTINAL: As mentioned above. As mentioned above GENITOURINARY: No dysuria or hematuria. INTEGUMENTARY: No skin rashes or history of skin cancer. NEURO: No transient ischemic attacks or amaurosis. PSYCHIATRIC: No history of psychosis or major depression. HEMATOLOGIC: Patient is on Xarelto. ENDOCRINE: Type 2 diabetes as mentioned above. MUSCULOSKELETAL: Chronic right foot pain and numbness, according the patient ALLERGY/IMMUNOLOGY: As mentioned above. Medications/Allergies Home Medications Medication Instructions Recorded Confirmed Last Taken Type nitroglycerin 0.4 mg sublingual 0.4 mg sublingual Q5M PRN Chest 11/04/19 10/18/22 10/18/22 21:00 History tablet (Nitrostat) Pain [id number] 1 cap PO QID PRN pain #60 caps 02/22/21 10/18/22 Unknown Rx 50 mg-300 mg-40 mg capsule clopidogrel 75 mg tablet (Plavix) 75 mg PO DAILY 08/14/21 10/18/22 10/18/22 06:00 History oxycodone-acetaminophen 10 mg-325 1 tab PO Q6H PRN pain 30 days #120 08/16/21 10/19/22 10/18/22 21:00 Rx mg tablet (Percocet) tabs Jardiance 25 mg PO 1XD 10/19/22 10/19/22 10/18/22 06:00 History Vitamin D3 Complete 10/19/22 10/18/22 06:00 History eszopiclone 3 mg tablet (Lunesta) 3 mg 10/19/22 10/17/22 21:00 History hydrochlorothiazide 25 mg tablet 25 mg PO DAILY 10/19/22 10/19/22 10/18/22 06:00 History pantoprazole 40 mg tablet,delayed 40 mg PO DAILY 10/19/22 10/19/22 10/18/22 06:00 History release potassium chloride 10 mEq 10 meq PO BID 10/19/22 10/19/22 10/17/22 18:00 History capsule,extended release rivaroxaban 2.5 mg tablet (Xarelto) 2.5 mg PO BID 10/19/22 10/19/22 10/18/22 06:00 History verapamil 240 mg tablet,extended 120 mg PO DAILY 10/19/22 10/19/22 10/18/22 06:00 History release Allergies Allergy/AdvReac Type Severity Reaction Status Date / Time amoxicillin [From Augmentin] Allergy Unknown Verified 10/19/22 09:36 clavulanic acid Allergy Unknown Verified 10/19/22 09:36 [From Augmentin] iron Allergy UNK Verified 10/19/22 09:36 lansoprazole [From Prevacid] Allergy UNK Verified 10/19/22 09:36 morphine Allergy ADR-Nausea Verified 10/19/22 09:36 Current Medications Generic Name Dose Route Start Last Admin Trade Name Freq PRN Reason Stop Dose Admin Heparin Sodium (Porcine) 0 unit 10/19/22 04:09 10/19/22 04:45 Heparin 5,000 Unit/Ml Inj 1 Ml IV 3,100 unit PRN PRN Administration Heparin weight-base protocol Protocol Heparin Sodium/Sodium Chloride 25,000 unit in 500 mls @ 0 mls/hr 10/19/22 04:15 10/19/22 04:40 Heparin Drip IV 14 unit/kg/hr .Q0M DEMETRIS 17.15 mls/hr Administration Protocol Per Protocol Nitroglycerin 0.4 mg 10/18/22 20:20 10/18/22 23:48 Nitroglycerin 0.4 Mg Sublingual Tablet SUBLINGUAL 0.4 mg Q5M PRN Administration CHEST PAIN Ondansetron HCl 4 mg 10/18/22 21:46 10/19/22 05:04 Ondansetron 2 Mg/Ml Sdv 2 Ml IVP 4 mg Q8H PRN Administration vomiting, or N/V if npo Oxycodone/Acetaminophen 1 tab 10/19/22 01:23 10/19/22 07:30 Oxycodone-Apap 10-325 Mg Tablet PO 1 tab Q6H PRN Administration pain PFSH Acute PFSH: Medical History Anemia Anxiety ASHD (arteriosclerotic heart disease) Hyperlipidemia Hypertension Insomnia Murmur PVC (premature ventricular contraction) Social History Alcohol intake: never Marital status: Current gender identity: Female Vitals/I&O/Wt Last Vital Signs Temp 99.1 F 10/19/22 07:19 Pulse 60 10/19/22 07:19 Resp 16 10/19/22 07:30 BP 158/74 10/19/22 07:19 Pulse Ox 100 10/19/22 07:30 O2 Del Method 10/19/22 03:41 10/18/22 10/19/22 10/19/22 22:59 06:59 14:59 Intake Total 480 / 480 360 / 360 Balance 480 / 480 360 / 360 Weight last 48 hrs Weight 135 lb Physical Exam Narrative: GENERAL: The patient is alert and oriented times three. Not in any acute distress. HEENT: No significant pallor, icterus or lymphadenopathy.Oral cavity: There are no mucous membrane lesions. NECK: Trachea appears to be central. No masses noted. No JVD or thyromegaly appreciated. RESPIRATORY: Chest is symmetrical. No intercostals muscle retraction or any accessory muscle activation. There is no chest wall tenderness. Breath sounds are heard bilaterally. No rales or rhonchi heard. No evidence of any consolidation. BREASTS: Deferred. HEART: The heart sounds are normal. No S3 or S4. No significant murmurs. No pericardial rub ABDOMEN: No vessel pulsations or distention. No tenderness. No organomegaly appreciated. Bowel sounds are normally heard. : Deferred. RECTAL: Deferred. LYMPHATIC: No lymphadenopathy noted in the neck. EXTREMITIES: The dorsalis pedis and posterior at the right foot is nonpalpable. On the left side, the dorsalis pedis and posterior tibial pulses are palpable but weak. Good femoral pulses bilaterally. MUSCULOSKELETAL: No acute joint deformities or swelling SKIN: There are no significant rashes or ecchymosis NEUROPSYCHIATRIC: The patient is alert and oriented x3. Appears to be in a good mood. No tremors or rigidity noted. Data 10/19/22 02:20 10/19/22 02:20 Other Labs: Laboratory Last Values WBC 9.0 10^3/uL (4.0-10.0) 10/19/22 02:20 RBC 4.75 10^6/uL (4.1-5.3) 10/19/22 02:20 Hgb 11.1 g/dL (11.5-15.3) L 10/19/22 02:20 Hct 36.6 % (37.0-47.0) L 10/19/22 02:20 MCV 77.1 fl (81-99) L 10/19/22 02:20 MCH 23.4 pg (28.0-34.0) L 10/19/22 02:20 MCHC 30.3 g/dL (30.0-36.0) 10/19/22 02:20 RDW 15.9 % (12.1-15.1) H 10/19/22 02:20 Plt Count 258 10^3/cmm (130-400) 10/19/22 02:20 MPV 10.8 fL (7.4-10.4) H 10/19/22 02:20 Neut % (Auto) 66.6 % 10/19/22 02:20 Lymph % (Auto) 24.1 % 10/19/22 02:20 [place] % (Auto) 7.9 % 10/19/22 02:20 Eos % (Auto) 0.8 % 10/19/22 02:20 Baso % (Auto) 0.4 % 10/19/22 02:20 Neut # (Auto) 6.01 10^3/uL (1.8-7.7) 10/19/22 02:20 Lymph # (Auto) 2.2 10^3/uL (0.8-4.8) 10/19/22 02:20 [place] # (Auto) 0.7 10^3/uL (0.2-0.9) 10/19/22 02:20 Eos # (Auto) 0.1 10^3/uL (0.0-0.8) 10/19/22 02:20 Baso # (Auto) 0.0 10^3/uL (0.0-0.1) 10/19/22 02:20 Nucleated RBC % (auto) 0 % 10/19/22 02:20 Nucleated RBCs # 0.0 /100WBC 10/19/22 02:20 PT 14.00 SECONDS (12.1-14.9) 10/19/22 02:20 INR 1.04 (0.8-1.2) 10/19/22 02:20 Sodium 139 mmol/L (136-145) 10/19/22 02:20 Potassium 3.0 mmol/L (3.5-5.1) L 10/19/22 02:20 Chloride 99 mmol/L (98-107) 10/19/22 02:20 Carbon Dioxide 28 mmol/L (22-29) 10/19/22 02:20 Anion Gap 15.0 (5-19) 10/19/22 02:20 BUN 11 mg/dL (8-23) 10/19/22 02:20 Creatinine 0.7 mg/dL (0.5-0.9) 10/19/22 02:20 GFR Calculation 84.2 mL/min (90-130) L 10/19/22 02:20 Glucose 157 mg/dL (65-115) H 10/19/22 02:20 Estimat Average Glucose 197 10/18/22 19:17 Hemoglobin A1c 8.5 % (4.0-6.0) H 10/18/22 19:17 Calculated Osmolality 291 mOsm/kg (285-295) 10/19/22 02:20 Calcium 9.2 mg/dL (8.5-10.5) 10/19/22 02:20 Magnesium 1.9 mg/dL (1.7-2.3) 10/19/22 02:20 Total Bilirubin 0.2 mg/dL (0.15-1.2) 10/19/22 02:20 AST 15 U/L (0-32) 10/19/22 02:20 ALT 11 U/L (0-33) 10/19/22 02:20 Alkaline Phosphatase 71 U/L (35-105) 10/19/22 02:20 Troponin T Baseline 17 ng/L (0-10) H 10/18/22 19:17 Troponin T 120 Minute 21.76 ng/L (0-10) H 10/18/22 21:00 Delta Troponin T 4.76 ABS# (0-10) 10/18/22 21:00 Troponin T Hi Sens 6Hr 54.27 ng/L (0-10) H 10/19/22 02:20 Troponin T Hi Sens 6Hr Delta 37.27 ng/L (0-12) H* 10/19/22 02:20 NT-Pro-B Natriuret Pep 373 pg/mL (0-125) H 10/18/22 19:17 NT-Pro-B Natriuret Pep 380 pg/mL (0-125) H 10/18/22 19:17 Total Protein 6.7 g/dL (6.6-8.7) 10/19/22 02:20 Albumin 4.2 g/dL (3.5-5.2) 10/19/22 02:20 Globulin 2.5 g/dL (1.3-4.6) 10/19/22 02:20 Triglycerides 199 mg/dL (0-150) H 10/18/22 19:17 Cholesterol 264 mg/dL (0-200) H 10/18/22 19:17 LDL Cholesterol, Calc 151 mg/dL (50-129) H 10/18/22 19:17 HDL Cholesterol 73 mg/dL (60-100) 10/18/22 19:17 LDL/HDL Ratio 2.07 RATIO (0.00-3.22) 10/18/22 19:17 Cholesterol/HDL Ratio 3.62 mg/dL (0.0-4.40) 10/18/22 19:17 Procalcitonin 0.08 ng/mL (0-0.5) 10/18/22 19:17 TSH 2.85 uIU/mL (0.27-4.20) 10/18/22 19:17 CXR: My impression: Normal cardiac silhouette. No lung infiltrate. No acute pathology. EKG 1: My Interpretation: Sinus bradycardia with a rate of [address] changes. Poor R wave progression. Nonspecific IVCD. A&P Assessment and plan (1) Atherosclerotic heart disease of [place] coronary artery with unstable angina pectoris: The patient's symptoms are suggestive of unstable angina. Hemodynamically she seems to be stable. She has clinical evidence of a non-ST elevation myocardial infarction. She continues to have chest pain but has significantly improved. At this point, she may be treated with subcu Lovenox, Plavix, aspirin, statin and other symptomatic measures. Echocardiogram will be helpful to evaluate LV function and rule out any other pathology. (2) NSTEMI (non-ST elevated myocardial infarction): The 2-hour and 6-hour troponin T's have Significant delta. EKG shows diffuse nonspecific ST changes. Patient is known to have atherosclerotic heart disease, multiple PCI's. We will try to get the medical records from [facility] and also from the [facility]. Patient may require a repeat coronary angiogram to reevaluate the coronary status as well as the stent status. (3) Renal artery stenosis: This patient had bilateral renal artery stenting. May continue on the current medications. 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 Good femoral pulses (5) Acute hypokalemia: Potassium level is improving. Continue supplement. (6) Re-entry ventricular arrhythmia: (7) Implantable loop recorder present: No documented malignant ventricular arrhythmia. Continue the monitoring (8) Hyperlipidemia: We will continue on the current medications. (9) Hypertension: Will optimize antihypertensive medications. Qualifiers: Hypertension type: essential hypertension Qualified Code(s): I10 - Essential (primary) hypertension (10) T2DM (type 2 diabetes mellitus): May continue the Jardiance. Blood sugar management as per the primary Consult Attestations Medical Necessity Statement: Patient requires a cardiac catheterization to further evaluate her coronary status and decide on further management. Since she has been taking the Xarelto, we may pay for 48 hours of this medication to proceed with the angiogram. Also would like to see the potassium level improving to an acceptable level. I will review the echocardiogram. Based on the patient's clinical progress, further recommendations will be made. Thank you for the opportunity to evaluate this patient and make these recommendations Other Attestations: Other Attestations: Patient requires continued hospital stay for close monitoring and further manage ment Coding Level of Care Code Acute Lab Manager for Loren Jones History Detailed Medical Decision Making High Complexity Diagnoses Atherosclerotic heart disease of [place] coronary artery with unstable angina pectoris I25.110 NSTEMI (non-ST elevated myocardial infarction) I21.4 Renal artery stenosis I70.1 Femoral artery occlusion, right I70.201 Acute hypokalemia E87.6 Re-entry ventricular arrhythmia I47.0 Implantable loop recorder present Z95.818 Hyperlipidemia E78.5 Hypertension I10 Hypertension type: essential hypertension T2DM (type 2 diabetes mellitus) E11.9
[2022-10-19] MEDS: clopidogrel 75 mg Tablet PO (09:37)
[2022-10-19] MEDS: verapamil ER 240 mg Tablet 120 MG PO (09:47)
[2022-10-19] MEDS: pantoprazole DR 40 mg Tablet PO (09:47)
--- NOTE | 2022-10-19 09:52 | PC.PHAR ---
pt states she takes care of her own medications-rx filled 06/02/22 90d/s verapamil er 240mg tabs take 120mg daily pt states it was increased to 240mg daily but states for the last 2-3 weeks she has been taking 240mg qam 120mg at noon and 120-240mg hs prn-pt states she is still taking kcl 10meq hs ext med history shows last filled 06/02/22 90d/s-pt states she has nateglinide 60mg tid prn but states she hasnt ever needed to take it ext med history shows last filled 09/21/22 90d/s-notes are made in the pharmacy comments
[2022-10-19 10:35] LABS: Partial Thromboplastin Time 47.2 SECONDS (23.9-36.7)
[2022-10-19 12:01] LABS: Glucose Point of Care 107 mg/dL (70-110)
--- NOTE | 2022-10-19 13:58 | P.PN_ITS ---
Subjective Subjective: She is still having some chest discomfort, pain and pressure. At home uses nitroglycerin patch she states 0.4 mg, although we do not have that on record. No trouble breathing. Early in the morning had some nausea but this has not improved. No vomiting, no diarrhea. No abdominal pain. Vitals/I&O/Wt Last Vital Signs Temp 99.1 F 10/19/22 07:19 Pulse 79 10/19/22 11:40 Resp 28 H 10/19/22 13:48 BP 150/67 10/19/22 11:38 Pulse Ox 93 10/19/22 13:48 O2 Del Method 10/19/22 03:41 10/18/22 10/19/22 10/19/22 22:59 06:59 14:59 Intake Total 480 / 480 474.619 / 474.619 Balance 480 / 480 474.619 / 474.619 Weight last 48 hrs Weight 61.235 kg Physical Exam Const: COMMON NORMALS: patient oriented x3 and alert GENERAL APPEARANCE: cooperative ORIENTATION/CONSCIOUSNESS: Yes awake HENMT: COMMON NORMALS: oropharynx normal Neck/C-Spine: COMMON NORMALS: no JVD Resp: COMMON NORMALS: normal respiratory effort and clear to auscultation bilaterally AUSCULTATION: clear to auscultation bilaterally Cardio: COMMON NORMALS: no JVD, regular rhythm, S1 normal heart sound present, S2 normal heart sound present and No murmurs present (Cardio) RHYTHM: regular rhythm HEART SOUNDS: S1 normal heart sound present and S2 normal heart sound present GI: COMMON NORMALS: Normal to inspection, nondistended, normoactive bowel sounds present, Soft to palpation and non-tender PALPATION: Yes Soft to palpation Extremity: COMMON NORMALS: no joint enlargement and no pedal edema Neuro: COMMON NORMALS: patient oriented x3 and moves all extremities SENSORIUM/ORIENTATION: Yes alert Skin: COMMON NORMALS: no rashes or lesions noted GENERAL SKIN EXAM: no rashes or lesions noted Data 10/19/22 02:20 10/19/22 02:20 A&P Assessment and plan (1) NSTEMI (non-ST elevated myocardial infarction): Still having some discomfort. Add nitroglycerin patch. Oxycodone as needed. Continue heparin drip. Holding Xarelto. Plans for additional assessment with coronary angiography with cardiology. Add aspirin and statin. (2) Acute hypokalemia: (3) Chest pain, rule out acute myocardial infarction: (4) Atrial fibrillation: Qualifiers: Atrial fibrillation type: persistent (not longstanding) Qualified Code(s): I48.19 - Other persistent atrial fibrillation (5) Hyperlipidemia: (6) Hypertension: Qualifiers: Hypertension type: essential hypertension Qualified Code(s): I10 - Essential (primary) hypertension (7) Unstable angina: (8) Coronary artery disease: (9) Stented coronary artery: Plan #Severe hypokalemia: Additional potassium replacement 60 milliequivalents. Follow-up additional mag level in the morning. #Chest pain/unstable angina #History of CAD status post stents x4 #Peripheral vascular disease #Stented renal arteries, femoral artery #History of hyperlipidemia, hypertension Full code DVT prophylaxis: Patient is on Xarelto. Attestations Medical Necessity Statement*: Continue admission for assessment management of NSTEMI, severe hypokalemia. Coding Level of Care Code Acute Maintenance Machine Repairer for [facility] Robert Diagnoses NSTEMI (non-ST elevated myocardial infarction) I21.4 Acute hypokalemia E87.6 Chest pain, rule out acute myocardial infarction R07.9 Atrial fibrillation I48.19 Atrial fibrillation type: persistent (not longstanding) Hyperlipidemia E78.5 Hypertension I10 Hypertension type: essential hypertension Unstable angina I20.0 Coronary artery disease I25.10 Stented coronary artery Z95.5
[2022-10-19] MEDS: hydroCHLOROthiazide 25 mg Tablet PO (14:50)
[2022-10-19] MEDS: potassium chloride ER 20 mEq Tablet 60 MEQ PO (14:50)
[2022-10-19] MEDS: aspirin 325 mg Tablet PO (14:50)
[2022-10-19 16:48] LABS: Glucose Point of Care 176 mg/dL (70-110)
[2022-10-19 17:02] LABS: Partial Thromboplastin Time 54.1 SECONDS (23.9-36.7)
[2022-10-19] MEDS: insulin lispro 100 unit/1 mL SUBCUT (17:14)
[2022-10-19 21:31] LABS: Glucose Point of Care 175 mg/dL (70-110)
[2022-10-19] MEDS: atorvastatin 40 mg Tablet PO (21:48)
[2022-10-19 23:22] LABS: Partial Thromboplastin Time 63.9 SECONDS (23.9-36.7)
[2022-10-20] VITALS (48 sets, daily range): BP systolic 116–162; BP diastolic 63–112; PULSE 45–83; RESP 16–32; TEMP 36.6–37.1; O2SAT 89–99
[2022-10-20] MEDS: oxyCODONE-APAP 10-325 mg Tablet 1 TAB PO ×2 (06:00→18:16)
[2022-10-20 06:27] LABS: Basophils % 0.6 %; Eosinophils # 0.1 10^3/uL (0.0-0.8); Hemoglobin 10.6 g/dL (11.5-15.3); Lymphocytes # 2.2 10^3/uL (0.8-4.8); Lymphocytes % 31.2 %; Mean Corpuscular HGB Conc 28.6 g/dL (30.0-36.0); Mean Corpuscular Hemoglobin 22.8 pg (28.0-34.0); Mean Corpuscular Volume 79.6 fl (81-99); Mean Platelet Volume 11.5 fL (7.4-10.4); Monocytes # 0.5 10^3/uL (0.2-0.9); Monocytes % 7.4 %; Neutrophils # 4.13 10^3/uL (1.8-7.7); Neutrophils % 58.4 %; Nucleated Red Blood Cells % 0 %; Platelet Count 221 10^3/cmm (130-400); Red Blood Count 4.65 10^6/uL (4.1-5.3); Red Cell Distribution Width 16.5 % (12.1-15.1); White Blood Count 7.1 10^3/uL (4.0-10.0)
[2022-10-20 06:41] LABS: Glucose Point of Care 139 mg/dL (70-110)
[2022-10-20 06:53] LABS: Anion Gap 14.3 (5-19); Blood Urea Nitrogen 12 mg/dL (8-23); Carbon Dioxide 25 mmol/L (22-29); Chloride 102 mmol/L (98-107); Glomerular Filtration Rate 84.2 mL/min (90-130); Glucose 118 mg/dL (65-115); Magnesium 1.9 mg/dL (1.7-2.3); Osmolality Calculated 287 mOsm/kg (285-295); Potassium 3.3 mmol/L (3.5-5.1); Sodium 138 mmol/L (136-145)
[2022-10-20 06:55] LABS: Partial Thromboplastin Time 60.2 SECONDS (23.9-36.7)
[2022-10-20 07:00] LABS: Troponin T (5th) Once 231 ng/L (0-10)
--- NOTE | 2022-10-20 07:23 | ECG_ITS ---
[facility] Test Date: 2022-10-20 Pat Name: Heather Young Department: Room: 103 Gender: Female Garbage Person: : 1955 Requested By: Eboni Aguirre Order Number: [id number] Gee MD: Eboni Aguirre M.D. Measurements Intervals [place] Rate: 41 P: 62 TN: 186 QRS: 77 QRSD: 107 T: -76 QT: 531 QTc: 439 Interpretive Statements SINUS BRADYCARDIA POSSIBLE ANTERIOR MYOCARDIAL INFARCTION , OF INDETERMINATE AGE [30 ms Q WAVE IN V3/V4, OR R < 0.2 mV IN V4] MODERATE T-WAVE ABNORMALITY, CONSIDER LATERAL ISCHEMIA [-0.1+ mV T-WAVE IN I/aVL/V5/V6] MODERATE T-WAVE ABNORMALITY, CONSIDER INFERIOR ISCHEMIA [-0.1+ mV T-WAVE IN II/aVF] Nonspecific ST changes in the inferior and anterolateral leads Compared to ECG 10/19/2022 01:57:45 T-wave abnormality now present Possible ischemia now present First degree AV block no longer present Myocardial infarct finding still present Electronically Signed On 10-20-2022 20:02:42 DIRT SHOVELER by Eboni Aguirre M.D. [email or web address]
[2022-10-20] MEDS: ondansetron 2 mg/ML SDV 2 mL 4 MG IVP ×3 (07:44→21:00)
[2022-10-20] MEDS: nitroglycerin 0.4 mg sublingual Tablet SUBLINGUAL (07:44)
[2022-10-20] MEDS: nitroglycerin drip 50 MG/250 ML PREMIX IV (08:01)
[2022-10-20] MEDS: HYDROmorphone 1 mg/mL INJ 1 mL 0.5 MG IVP ×3 (08:18→09:19)
[2022-10-20] MEDS: LORazepam 2 mg/mL INJ 1 mL 0.5 MG IVP ×2 (08:20→09:06)
--- NOTE | 2022-10-20 08:54 | PM.PN ---
Subjective Subjective: This morning she woke up without pain, then after returning from the restroom started having slight pain which went away after she got settled in bed. She then tried to settle in for a nap, but subsequently woke up with a progressively and rapidly increasing chest pain, central, accompanied by pressure also and she states Radiating to the back. Accompanied by nausea. Also noted to have bradycardia in the 40s, at time dropping down into the 30s. The morning team contact with her photography professor. Pacer pads applied, atropine was prepared. She received Zofran. Started on nitroglycerin drip. Received Dilaudid, Ativan with slight improvement. CTA chest ordered to visualize great vessels. Troponin noted elevated 232. EKG with sinus bradycardia, T wave changes suggestive of inferolateral ischemia. Discussed with photography professor. Preparations for Out Of School Hours Care Worker as soon as possible with request to cancel CTA so as not to delay with additional evaluation in Out Of School Hours Care Worker. Given additional Dilaudid and Ativan for pain and anxiety. Vitals/I&O/Wt Last Vital Signs Temp 97.8 F 10/20/22 03:32 Pulse 58 L 10/20/22 07:14 Resp 29 H 10/20/22 08:18 BP 138/68 10/20/22 07:14 Pulse Ox 95 10/20/22 08:18 O2 Del Method 10/20/22 03:32 10/19/22 10/20/22 10/20/22 22:59 06:59 14:59 Intake Total 611.5 / 1446.119 0.7 / 0.7 Balance 611.5 / 1446.119 0.7 / 0.7 Weight last 48 hrs Weight 61.235 kg Physical Exam Const: COMMON NORMALS: patient oriented x3 and alert GENERAL APPEARANCE: cooperative ORIENTATION/CONSCIOUSNESS: Yes awake HENMT: COMMON NORMALS: oropharynx normal Neck/C-Spine: COMMON NORMALS: no JVD Resp: COMMON NORMALS: normal respiratory effort and clear to auscultation bilaterally AUSCULTATION: clear to auscultation bilaterally Cardio: COMMON NORMALS: no JVD, regular rhythm, S1 normal heart sound present, S2 normal heart sound present and No murmurs present (Cardio) RHYTHM: regular rhythm HEART SOUNDS: S1 normal heart sound present and S2 normal heart sound present GI: COMMON NORMALS: Normal to inspection, nondistended, normoactive bowel sounds present, Soft to palpation and non-tender PALPATION: Yes Soft to palpation Extremity: COMMON NORMALS: no joint enlargement and no pedal edema Neuro: COMMON NORMALS: patient oriented x3 and moves all extremities SENSORIUM/ORIENTATION: Yes alert Skin: COMMON NORMALS: no rashes or lesions noted GENERAL SKIN EXAM: no rashes or lesions noted Data 10/20/22 05:50 10/20/22 05:50 A&P Assessment and plan (1) NSTEMI (non-ST elevated myocardial infarction): Overnight chest pain-free, slept well. This morning recurrence of severe chest pain. Nausea, sinus bradycardia. Add nitroglycerin patch. Oxycodone as needed. Continue heparin drip. Holding Xarelto. Plans for additional assessment with coronary angiography with cardiology. Add aspirin and statin. (2) Acute hypokalemia: Replace additional potassium. (3) Chest pain, rule out acute myocardial infarction: (4) Atrial fibrillation: Qualifiers: Atrial fibrillation type: persistent (not longstanding) Qualified Code(s): I48.19 - Other persistent atrial fibrillation (5) Hyperlipidemia: (6) Hypertension: Qualifiers: Hypertension type: essential hypertension Qualified Code(s): I10 - Essential (primary) hypertension (7) Unstable angina: (8) Coronary artery disease: (9) Stented coronary artery: Plan #Chest pain/unstable angina #History of CAD status post stents x4 #Peripheral vascular disease #Stented renal arteries, femoral artery #History of hyperlipidemia, hypertension Full code DVT prophylaxis: Patient is on Xarelto. Attestations Medical Necessity Statement*: Continue admission for assessment of NSTEMI with unstable/worsening symptoms. Coding Level of Care Code Acute Drug Abuse Counselor for [facility] Diagnoses NSTEMI (non-ST elevated myocardial infarction) I21.4 Acute hypokalemia E87.6 Chest pain, rule out acute myocardial infarction R07.9 Atrial fibrillation I48.19 Atrial fibrillation type: persistent (not longstanding) Hyperlipidemia E78.5 Hypertension I10 Hypertension type: essential hypertension Unstable angina I20.0 Coronary artery disease I25.10 Stented coronary artery Z95.5
--- NOTE | 2022-10-20 09:09 | XACV_ITS ---
Exam Room: 2 Ht: 163 cm Wt: 61 kg BSA: 1.67 m2 Gender: Female : 1955 Any Known Allergies: Morphine Exam Priority: Routine Procedure(s): Procedure Description: Diagnostic procedure Procedure Description: PCI procedure Procedure Description: PTCA Procedure Description: Coronary Angiography [facility]; Diagnostic Cath Status: Emergency Diagnostic Findings * Patient with known coronary disease, previous stents enters the hospital with chest discomfort typical of angina. This morning worsening angina with elevated troponin and EKG changes in the inferior leads. Radial arteries not available due to previous attempts failing. Right common femoral artery not available due to previous inadvertent suturing of the right common femoral artery during an angiographic procedure. Procedure completed from the left common femoral artery. * Coronary angiography reveals right coronary artery dominance. Left main coronary artery is normal. Circumflex is a tiny vessel and contains diffuse luminal irregularities. The LAD is patent. It is relatively small. There are stents proximally which are patent. 2 small diagonal branches are noted. The right coronary artery is the dominant vessel. There is a hazy 60% stenosis in the proximal vessel just prior to the initiation of stents which occupy the middle third of the vessel and extend all the way around the acute margin. These are multiple stents end to end. In the distal portion of this line of stents the vessel is occluded prior to its entry into the posterior descending artery. This is in-stent thrombosis. The posterior left ventricular branch is patent. There is no flow in the PDA.. PCI Status: Emergency PCI LVEF Assessed: No PCI Indication: STEMI - Immediate PCI for STEMI Interventional Findings * Somewhere between the initiation of chest pain this morning and her arrival to the [facility] the vessel occluded. She did not have significant ST elevation this morning by EKG at 730, however when she arrived in the [facility] her monitor revealed ST elevation in lead II. A wire was placed down the vessel. Initially balloon angioplasty was done in 3 areas within the stent. This opened the vessel. She suddenly had 2 small runs of accelerated idioventricular rhythm and then significant bradycardia with heart rates down in the 30s. I gave her 0.2 mg of atropine. Balloon angioplasty was used to clean up the area. I then gave her a bolus of Aggrastat and an Aggrastat drip. The end angiographic result looks good. Patient's symptoms have resolved. Decision for PCI with Surgical Consult: No PCI for Multi-vessel Disease: No Conclusions 1. Thrombosis of the distal right coronary artery extending to the entire posterior descending artery. Balloon angioplasty with reopening of the vessel. Aggrastat infusion. Recommendations * Medical therapy now. Interventional RX Recommendation: PCI w/o planned CABG Diagnostic RX Recommendation: PCI w/o planned CABG Anticoagulation: Heparin, Tirofiban Pressures Phase:Rest AO : 178 / 109 ( 138 ) @ 10:06:00 AM 164 / 84 ( 113 ) @ 10:17:00 AM 154 / 87 ( 114 ) @ 10:20:00 AM Clinical Evaluation EBL: 5mL-10mL Procedural Details Procedure Consent Obtained. Admit Source: In Patient. AP pad placed on pt on arrivial to receiver/laborer. Pre-Procedure Time Out. Identified patient by full name and date of as verbalized by the patient/guarantor. Does the consent match the physician's order: Yes. Accurate & Complete Informed Consent: Yes. Inpatient/Outpatient History & Physical on Chart: Yes. If H&P is completed, is and addenduem needed: No; If yes, is the addendum complete: N/A. Visualize and Verify Site with Patient/Guarantor: N/A. Relevant Radiology Images available: N/A. The risks, benefits, and alternatives of sedation and/or procedure were discussed by physician. The patient agrees to continue. Procedure started. [facility] Clinical Fraility Score: 4: Vulnerable. 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 Chest Pain Symptom Assessment: Typical Angina Symptoms. Cardiovascular Instability: No. Correct patient, site and procedure confirmed by cath team. Current diagnosis: Unstable angina. PERRLA. Strong, equal hand computerized mill mill recorder bilaterally. Lungs clear x 5 lobes. IV Site on Arrival: 20 gauge in the right anticubital. IV Site on Arrival: 20 gauge in the left wrist. IV Fluids: 0.9% NaCl at KVO. 0 mL infused prior to receiver/laborer. Oxygen started at 2liters/min via nasal canula. bilateral groins was prepped with chloroprep then draped in the usual sterile fashion. Physician notified. Baseline sample Acquired. HR: 51 BPM. Physician arrived. Physician scrubbed in. Immediate Pre-Procedure Time Out. Correct Patient: Yes; Correct Procedure: Yes; Correct Site: Yes; Correct Patient Position: Yes; Correct Supplies: Yes; Dried Flammable Prep: Yes; Blood Products Available: N/A;. Pre Procedural Pulses: right dorsalis pedis was Doppled. Pre Procedural Pulses: left dorsalis pedis was 3+. Pre Procedural Pulses: right posterior tibial was Doppled. Pre Procedural Pulses: left posterior tibial was 3+. Pre Procedural Pulses: bilateral radial was 3+. Lidocaine 1% infiltrated to the left groin. Arterial access obtained. A 6 mongolian JL4 catheter in over wire. Multiple views taken of left coronary artery. Catheter out. A 6 mongolian JR3.5 catheter in over wire. Multiple views taken of right coronary artery. Catheter out. 6 mongolian JR 4 guide catheter was inserted over the wire. Sherwood guidewire was advanced through the guide catheter to lesion in the distal RCA. Inflation number : 1 A AB TREK 2.50X12 RX BALLOON was prepped and advanced across the Dist RCA , then inflated to 8 PEYTON for 0:31 seconds. Inflation number: 2 The AB TREK 2.50X12 RX BALLOON was reinflated across the Dist RCA, to 8 PEYTON for 0:31 seconds. Inflation number: 3 The AB TREK 2.50X12 RX BALLOON was reinflated across the Dist RCA, to 8 PEYTON for 0:21 seconds. Results checked. Family updated. Balloon out. Wire out. Guide catheter out. A Suture was successful obtaining hemostatsis at the Left Femoral artery insertion site. Post Procedure: Pulses reassessed and unchanged. PERRLA. Strong, equal hand computerized mill mill recorder bilaterally. No VTE prophylaxis required. Medication's Wasted: Nitro = 50 mg. Medication's Wasted: Heparin = 1500 units. Medication's Wasted: Other = versed 1 mL. Medication's Wasted: Other = fentanyl 2 mL. Total IV fluids: 65 mL. Post-op diagnosis: balloon of the distal RCA. Complications: none. Estimated blood loss: 5mL-10mL. Responsiveness - Normal response to verbal stimuli; alert and oriented, PERRLA. Airway - Unaffected, no intervention required; spontaneous ventilation. Circulation: W/N/L, pulses unchanged. Nausea/Vomiting: No. Procedure completed. Patient transferred by bed to 1st floor. Vital chart was stopped. Access Site Site: Left Femoral artery Sheath Size: 6 Fr Hemostasis Method: Suture Hemostasis Success: Successful Procedure Medications Start: 9:56 AM Stop: 9:56 AM Medication: Versed Amount: 1 mg Route: I.V. Start: 10:24 AM Stop: 10:24 AM Medication: Atropine Amount: 0.2 mg Route: I.V. Start: 10:29 AM Stop: 10:29 AM Medication: Aggrastat 12.5 mg/250 mL Amount: 11.2 ml/hr Route: I.V. drip Start: 10:31 AM Stop: 10:31 AM Medication: Aggrastat 12.5 mg/250 mL Amount: 31 ml Route: I.C. Start: 10:40 AM Stop: 10:40 AM Medication: Heparin Amount: 2500 units Route: I.V. I, the attending physician, have reviewed and verified all procedure medications. Yes, all medications given per verbal order History/Risk Factors Hypertension: Yes Dyslipidemia: Yes Peripheral Arterial Disease (PAD): No Myocardial Infarction (NC): No Obesity: No Prior Interventions PCI: No CABG: No Valve Surgery: No Report Signatures Finalized by Dr. Milton Robles MD on 10/20/2022 11:09 AM
[2022-10-20 10:00] LABS: Lipase 33 U/L (13-60)
--- NOTE | 2022-10-20 10:01 | P.PN_ITS ---
Subjective Subjective: The patient started having more chest pain this morning. Intensity of the pain was greater than 10/10. She also became diaphoretic, nauseous with a heart rate going down to 30s and 40s. Her symptoms gradually got little better after Zofran and IV nitro. Currently the chest pain is 7/10. EKG showed nonspecific ST changes. The troponin T went up to 231. Medications: Medication Review Details: Current Medications Acetaminophen (Acetaminophen 325 Mg Tablet) 650 mg PO Q6H PRN PRN Reason: Mild/Mod Pain Or Temp >/= 101 Aspirin (Aspirin 325 Mg Tablet) 325 mg PO DAILY DEMETRIS Last Admin: 10/19/22 14:50 Dose: 325 mg Atorvastatin Calcium (Atorvastatin 40 Mg Tablet) 40 mg PO BEDTIME DEMETRIS Last Admin: 10/19/22 21:48 Dose: 40 mg Clopidogrel Bisulfate (Clopidogrel 75 Mg Tablet) 75 mg PO DAILY DEMETRIS Last Admin: 10/19/22 09:37 Dose: 75 mg Heparin Sodium (Porcine) (Heparin 5,000 Unit/Ml Inj 1 Ml) 0 unit IV PRN PRN; Protocol PRN Reason: Heparin weight-base protocol Last Admin: 10/19/22 18:06 Dose: 1,200 unit Hydrochlorothiazide (Hydrochlorothiazide 25 Mg Tablet) 25 mg PO DAILY DEMETRIS Last Admin: 10/19/22 14:50 Dose: 25 mg Hydromorphone HCl (Hydromorphone 1 Mg/Ml Inj 1 Ml) 0.5 mg IVP Q4H PRN PRN Reason: PAIN Last Admin: 10/20/22 08:38 Dose: 0.5 mg Heparin Sodium/Sodium Chloride (Heparin Drip) 25,000 unit in 500 mls @ 0 mls/hr IV .Q0M DEMETRIS; Protocol Last Titration: 10/20/22 09:30 Dose: Infused Nitroglycerin/Dextrose (Nitroglycerin Drip) 50 mg in 250 mls @ 0 mls/hr IV .Q0M [facility]; Protocol Last Titration: 10/20/22 08:15 Dose: 15 mcg/min, 4.5 mls/hr Lidocaine HCl 5 ml/ Potassium (Chloride) 105 mls @ 25 mls/hr IV ONCE ONE Stop: 10/20/22 13:23 Insulin Human Lispro (Insulin Lispro 100 Unit/1 Ml) 0 unit SUBCUT WM&BEDTIME DEMETRIS; Protocol Last Admin: 10/20/22 07:04 Dose: Not Given Lorazepam (Lorazepam 2 Mg/Ml Inj 1 Ml) 0.5 mg IVP Q4H PRN PRN Reason: ANXIETY Nitroglycerin (Nitroglycerin 0.4 Mg Sublingual Tablet) 0.4 mg SUBLINGUAL Q5M PRN PRN Reason: CHEST PAIN Last Admin: 10/20/22 07:44 Dose: 0.4 mg Nitroglycerin (Nitroglycerin 0.2 Mg Patch) 1 patch TRANSDERMA Q24H [facility] Last Admin: 10/19/22 13:49 Dose: 1 patch Non-Formulary Medication Lunesta 3 Mg Tab 0 each PO BEDTIME [facility] Last Admin: 10/19/22 21:49 Dose: 1 each Ondansetron HCl (Ondansetron 2 Mg/Ml Sdv 2 Ml) 4 mg IVP Q8H PRN PRN Reason: vomiting, or N/V if npo Last Admin: 10/20/22 07:44 Dose: 4 mg Oxycodone/Acetaminophen (Oxycodone-Apap 10-325 Mg Tablet) 1 tab PO Q6H PRN PRN Reason: pain Last Admin: 10/20/22 06:00 Dose: 1 tab Pantoprazole Sodium (Pantoprazole Dr 40 Mg Tablet) 40 mg PO DAILY [facility] Last Admin: 10/19/22 09:47 Dose: 40 mg Verapamil HCl (Verapamil Er 240 Mg Tablet) 120 mg PO DAILY [facility] Last Admin: 10/19/22 09:47 Dose: 120 mg Vitals/I&O/Wt Last Vital Signs Temp 97.8 F 10/20/22 03:32 Pulse 58 L 10/20/22 07:14 Resp 21 H 10/20/22 09:19 BP 138/68 10/20/22 07:14 Pulse Ox 94 10/20/22 09:19 O2 Del Method 10/20/22 03:32 10/19/22 10/20/22 10/20/22 22:59 06:59 14:59 Intake Total 611.5 / 1446.119 264.581 / 264.581 Balance 611.5 / 1446.119 264.581 / 264.581 Weight last 48 hrs Weight 135 lb Physical Exam Narrative: GENERAL: The patient is alert and oriented times three. Not in any acute distress. HEENT: No significant pallor, icterus or lymphadenopathy.Oral cavity: There are no mucous membrane lesions. NECK: Trachea appears to be central. No masses noted. No JVD or thyromegaly appreciated. RESPIRATORY: Chest is symmetrical. No intercostals muscle retraction or any accessory muscle activation. There is no chest wall tenderness. Breath sounds are heard bilaterally. No rales or rhonchi heard. No evidence of any consolidation. BREASTS: Deferred. HEART: The heart sounds are normal. No S3 or S4. No significant murmurs. No pericardial rub ABDOMEN: No vessel pulsations or distention. No tenderness. No organomegaly appreciated. Bowel sounds are normally heard. : Deferred. RECTAL: Deferred. LYMPHATIC: No lymphadenopathy noted in the neck. EXTREMITIES: The dorsalis pedis and posterior at the right foot is nonpalpable. On the left side, the dorsalis pedis and posterior tibial pulses are palpable but weak. Good femoral pulses bilaterally. MUSCULOSKELETAL: No acute joint deformities or swelling SKIN: There are no significant rashes or ecchymosis NEUROPSYCHIATRIC: The patient is alert and oriented x3. Appears to be in a good mood. No tremors or rigidity noted. Data 10/20/22 05:50 10/20/22 05:50 Other Labs: Laboratory Last Values WBC 7.1 10^3/uL (4.0-10.0) 10/20/22 05:50 RBC 4.65 10^6/uL (4.1-5.3) 10/20/22 05:50 Hgb 10.6 g/dL (11.5-15.3) L 10/20/22 05:50 Hct 37.0 % (37.0-47.0) 10/20/22 05:50 MCV 79.6 fl (81-99) L 10/20/22 05:50 MCH 22.8 pg (28.0-34.0) L 10/20/22 05:50 MCHC 28.6 g/dL (30.0-36.0) L D 10/20/22 05:50 RDW 16.5 % (12.1-15.1) H 10/20/22 05:50 Plt Count 221 10^3/cmm (130-400) 10/20/22 05:50 MPV 11.5 fL (7.4-10.4) H 10/20/22 05:50 Neut % (Auto) 58.4 % 10/20/22 05:50 Lymph % (Auto) 31.2 % 10/20/22 05:50 [place] % (Auto) 7.4 % 10/20/22 05:50 Eos % (Auto) 2.0 % 10/20/22 05:50 Baso % (Auto) 0.6 % 10/20/22 05:50 Neut # (Auto) 4.13 10^3/uL (1.8-7.7) 10/20/22 05:50 Lymph # (Auto) 2.2 10^3/uL (0.8-4.8) 10/20/22 05:50 [place] # (Auto) 0.5 10^3/uL (0.2-0.9) 10/20/22 05:50 Eos # (Auto) 0.1 10^3/uL (0.0-0.8) 10/20/22 05:50 Baso # (Auto) 0.0 10^3/uL (0.0-0.1) 10/20/22 05:50 Nucleated RBC % (auto) 0 % 10/20/22 05:50 Nucleated RBCs # 0.0 /100WBC 10/20/22 05:50 PT 14.00 SECONDS (12.1-14.9) 10/19/22 02:20 INR 1.04 (0.8-1.2) 10/19/22 02:20 APTT 60.2 SECONDS (23.9-36.7) H 10/20/22 05:50 Sodium 138 mmol/L (136-145) 10/20/22 05:50 Potassium 3.3 mmol/L (3.5-5.1) L 10/20/22 05:50 Chloride 102 mmol/L (98-107) 10/20/22 05:50 Carbon Dioxide 25 mmol/L (22-29) 10/20/22 05:50 Anion Gap 14.3 (5-19) 10/20/22 05:50 BUN 12 mg/dL (8-23) 10/20/22 05:50 Creatinine 0.7 mg/dL (0.5-0.9) 10/20/22 05:50 GFR Calculation 84.2 mL/min (90-130) L 10/20/22 05:50 Glucose 118 mg/dL (65-115) H 10/20/22 05:50 POC Glucose 139 mg/dL (70-110) H 10/20/22 06:37 Estimat Average Glucose 197 10/18/22 19:17 Hemoglobin A1c 8.5 % (4.0-6.0) H 10/18/22 19:17 Calculated Osmolality 287 mOsm/kg (285-295) 10/20/22 05:50 Calcium 9.0 mg/dL (8.5-10.5) 10/20/22 05:50 Magnesium 1.9 mg/dL (1.7-2.3) 10/20/22 05:50 Total Bilirubin 0.2 mg/dL (0.15-1.2) 10/19/22 02:20 AST 15 U/L (0-32) 10/19/22 02:20 ALT 11 U/L (0-33) 10/19/22 02:20 Alkaline Phosphatase 71 U/L (35-105) 10/19/22 02:20 Troponin T Gen 5 ng/L 231 ng/L (0-10) H* 10/20/22 05:50 Troponin T Baseline 17 ng/L (0-10) H 10/18/22 19:17 Troponin T 120 Minute 21.76 ng/L (0-10) H 10/18/22 21:00 Delta Troponin T 4.76 ABS# (0-10) 10/18/22 21:00 Troponin T Hi Sens 6Hr 54.27 ng/L (0-10) H 10/19/22 02:20 Troponin T Hi Sens 6Hr Delta 37.27 ng/L (0-12) H* 10/19/22 02:20 NT-Pro-B Natriuret Pep 373 pg/mL (0-125) H 10/18/22 19:17 NT-Pro-B Natriuret Pep 380 pg/mL (0-125) H 10/18/22 19:17 Total Protein 6.7 g/dL (6.6-8.7) 10/19/22 02:20 Albumin 4.2 g/dL (3.5-5.2) 10/19/22 02:20 Globulin 2.5 g/dL (1.3-4.6) 10/19/22 02:20 Triglycerides 199 mg/dL (0-150) H 10/18/22 19:17 Cholesterol 264 mg/dL (0-200) H 10/18/22 19:17 LDL Cholesterol, Calc 151 mg/dL (50-129) H 10/18/22 19:17 HDL Cholesterol 73 mg/dL (60-100) 10/18/22 19:17 LDL/HDL Ratio 2.07 RATIO (0.00-3.22) 10/18/22 19: Cholesterol/HDL Ratio 3.62 mg/dL (0.0-4.40) 10/18/22 19:17 Lipase 33 U/L (13-60) 10/20/22 05:50 Procalcitonin 0.08 ng/mL (0-0.5) 10/18/22 19: TSH 2.85 uIU/mL (0.27-4.20) 10/18/22 19:17 EKG 2: My Interpretation: The EKG showed a sinus bradycardia rate of [address] changes with a T inversions in the inferolateral leads. T wave changes appears to be new A&P Assessment and plan (1) Atherosclerotic heart disease of craig coronary artery with unstable angina pectoris: The patient's symptoms are suggestive of unstable angina. Hemodynamically she seems to be stable. She has clinical evidence of a non-ST elevation myocardial infarction. In view of her worsening symptoms, she needs an urgent cardiac catheterization. (2) NSTEMI (non-ST elevated myocardial infarction): The troponins Ts seems to be trending upwards The need for urgent cardiac catheterization was discussed with the patient in detail. (3) Renal artery stenosis: This patient had bilateral renal artery stenting. May continue on the current medications. 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 Good femoral pulses (5) Acute hypokalemia: Potassium level is improving. The potassium at 3.3 this morning (6) Re-entry ventricular arrhythmia: (7) Implantable loop recorder present: No documented malignant ventricular arrhythmia. Continue the monitoring (8) Hyperlipidemia: We will continue on the current medications. (9) Hypertension: Will optimize antihypertensive medications. Qualifiers: Hypertension type: essential hypertension Qualified Code(s): I10 - Essential (primary) hypertension (10) T2DM (type 2 diabetes mellitus): May continue the Jardiance. Blood sugar management as per the primary Plan Patient requires urgent cardiac catheterization. I asked my colleague Dr. Robles to perform this procedure. The procedure explained to the patient in detail. The risk of bleeding, hematoma, vascular injury, myocardial infarction, myocardial perforation, malignant cardiac arrhythmias ,CVA, renal failure and other concomitant complications were once again explained which the patient understood well and consented to proceed Attestations Medical Necessity Statement*: Patient requires continued hospital stay for close monitoring and further management Coding Level of Care Code Acute Mail Inserter for Chg Fwd History Expanded Problem Focused Exam Detailed Medical Decision Making Moderate Complexity Diagnoses Atherosclerotic heart disease of craig coronary artery with unstable angina pectoris I25.110 NSTEMI (non-ST elevated myocardial infarction) I21.4 Renal artery stenosis I70.1 Femoral artery occlusion, right I70.201 Acute hypokalemia E87.6 Re-entry ventricular arrhythmia I47.0 Implantable loop recorder present Z95.818 Hyperlipidemia E78.5 Hypertension I10 Hypertension type: essential hypertension T2DM (type 2 diabetes mellitus) E11.9
--- NOTE | 2022-10-20 10:40 | P.CONIM_ITS ---
Providers/Reason For Consult Consulting Physician/Specialty*: Interventional cardiology Reason for Consult*: Persistent aggressive antianginal therapy. Requesting Physician: eugenie Attending Physician: Patrice Clifford Primary Care Provider: Monica Alex MD History of Present Illness History of Present Illness Heather Young is a 66 year old female who has a. She has had multiple stents placed. There are stents in the proximal LAD and and subsequent to that she has had many stents placed in her right coronary artery. There are stents from the proximal portion to the midportion. There are stents in the area of the acute margin and distally. There is also a small stent in the midportion of the posterior descending artery. Last year, at a different facility. She had bilateral renal stents placed. Complicated 1 of these procedures was an inadvertent suturing of the right common femoral artery when the sheath was pulled. This required surgery and caused a multiweek hospital stay. She has been left with muscle atrophy and inability to walk correctly on the right leg. She has been admitted with chest pain. Apparently she has begun to have angina over the last few weeks. It has accelerated and worsened in frequency. She is no longer able to handle the angina with nitroglycerin. She is on a topical n itrate along with other medications including calcium channel blockers. Upon her original admission here her troponin was 17. The third troponin was 54. This was 2 days ago. Overnight she had a recurrence of chest pain. The nurses called Dr. Aguirre this morning and he asked me to come and see her and consider urgent angiography. Her troponin this morning was 231. Her EKG this morning at 730 reveals sinus rhythm with an interventricular conduction delay, and old anterior wall OK and T wave inversions inferiorly with subtle ST elevation in the inferior leads. Her echo revealed at ejection fraction of 45% with regional wall motion disturbances. This was apparently a decrease in her ejection fraction from a previous echo. She has hypertension and dyslipidemia but does not have diabetes to my knowledge. She typically receives her cardiac care in [place]. She was closer to this facility. When I visited with her she was still having chest pain despite intravenous nitroglycerin. Complicating is somewhat is that previous attempts to enter the right radial artery have been unsuccessful. She requests that the right common femoral artery not be used given the previous complication while placing a renal artery stent. Therefore, the only viable option we have is the left common femoral artery. Review of Systems Narrative: Negative noted in the history of present illness. Medications/Allergies Home Medications Medication Instructions Recorded Confirmed Last Taken Type clopidogrel 75 mg tablet (Plavix) 75 mg PO QAM 08/14/21 10/19/22 Unknown History albuterol sulfate 90 mcg/actuation 2 puff inhalation Q4H PRN 10/19/22 10/19/22 Unknown History aerosol inhaler (ProAir HFA) Shortness Of Breath birclrrhzx-zriudtvjmgcab-ppiqnpdi 1 tab PO QID PRN Migraine Headache 10/19/22 10/19/22 Unknown History 50 mg-325 mg-40 mg tablet cholecalciferol (vitamin D3) 125 125 mcg PO QAM 10/19/22 10/19/22 Unknown History mcg (5,000 unit) tablet (Vitamin D3) empagliflozin 25 mg tablet 25 mg PO QAM 10/19/22 10/19/22 Unknown History (Jardiance) eszopiclone 3 mg tablet (Lunesta) 3 mg PO BEDTIME 10/19/22 10/19/22 Unknown History hydrochlorothiazide 25 mg tablet 25 mg PO QAM 10/19/22 10/19/22 Unknown History nateglinide 60 mg tablet 60 mg PO TID PRN blood sugar 10/19/22 10/19/22 Unknown History nitroglycerin 0.4 mg sublingual 0.4 mg sublingual Q5M PRN Chest 10/19/2205/04 Unknown History tablet (Nitrostat) Pain oxycodone-acetaminophen 5 mg-325 1 tab PO Q8H PRN Pain 10/19/22 10/19/22 Unknown History mg tablet pantoprazole 40 mg tablet,delayed 40 mg PO QAM 10/19/22 10/19/22 Unknown History release potassium chloride 10 mEq 10 meq PO BEDTIME 10/19/22 10/19/22 Unknown History tablet,extended release rivaroxaban 2.5 mg tablet (Xarelto) 2.5 mg PO BID 10/19/22 10/19/22 10/18/22 06:00 History verapamil 240 mg tablet,extended See Rx Instructions .Route .COMPLEX 10/19/22 10/19/22 Unknown History release Allergies Allergy/AdvReac Type Severity Reaction Status Date / Time amoxicillin [From Augmentin] Allergy Unknown Verified 10/19/22 09:36 clavulanic acid Allergy Unknown Verified 10/19/22 09:36 [From Augmentin] iron Allergy UNK Verified 10/19/22 09:36 lansoprazole [From Prevacid] Allergy UNK Verified 10/19/22 09:36 morphine Allergy ADR-Nausea Verified 10/19/22 09:36 Current Medications Generic Name Dose Route Start Last Admin Trade Name Freq PRN Reason Stop Dose Admin Aspirin 325 mg 10/19/22 14:10 10/19/22 14:50 Aspirin 325 Mg Tablet PO 325 mg DAILY DEMETRIS Administration Atorvastatin Calcium 40 mg 10/19/22 21:00 10/19/22 21:48 Atorvastatin 40 Mg Tablet PO 40 mg BEDTIME DEMETRIS Administration Clopidogrel Bisulfate 75 mg 10/19/22 09:00 10/19/22 09:37 Clopidogrel 75 Mg Tablet PO 75 mg DAILY DEMETRIS Administration Heparin Sodium (Porcine) 0 unit 10/19/22 04:09 10/19/22 18:06 Heparin 5,000 Unit/Ml Inj 1 Ml IV 1,200 unit PRN PRN Administration Heparin weight-base protocol Protocol Hydrochlorothiazide 25 mg 10/19/22 09:00 10/19/22 14:50 Hydrochlorothiazide 25 Mg Tablet PO 25 mg DAILY DEMETRIS Administration Hydromorphone HCl 0.5 mg 10/20/22 08:21 10/20/22 08:38 Hydromorphone 1 Mg/Ml Inj 1 Ml IVP 0.5 mg Q4H PRN Administration PAIN Heparin Sodium/Sodium Chloride 25,000 unit in 500 mls @ 0 mls/hr 10/19/22 04:15 10/20/22 09:30 Heparin Drip IV Infused .Q0M DEMETRIS Titration Protocol Per Protocol Nitroglycerin/Dextrose 50 mg in 250 mls @ 0 mls/hr 10/20/22 08:00 10/20/22 08:15 Nitroglycerin Drip IV 15 mcg/min .Q0M DEMETRIS 4.5 mls/hr Titration Protocol Per Protocol Insulin Human Lispro 0 unit 10/19/22 12:00 10/20/22 07:04 Insulin Lispro 100 Unit/1 Ml SUBCUT Not Given WM&BEDTIME [facility] Protocol Nitroglycerin 0.4 mg 10/18/22 20:20 10/20/22 07:44 Nitroglycerin 0.4 Mg Sublingual Tablet SUBLINGUAL 0.4 mg Q5M PRN Administration CHEST PAIN Nitroglycerin 1 patch 10/19/22 14:00 10/19/22 13:49 Nitroglycerin 0.2 Mg Patch TRANSDERMA 1 patch Q24H DEMETRIS Administration Non-Formulary 0 each 10/19/22 21:45 10/19/22 21:49 Medication Lunesta 3 PO 1 each Mg Tab BEDTIME DEMETRIS Administration Ondansetron HCl 4 mg 10/18/22 21:46 10/20/22 07:44 Ondansetron 2 Mg/Ml Sdv 2 Ml IVP 4 mg Q8H PRN Administration vomiting, or N/V if npo Oxycodone/Acetaminophen 1 tab 10/19/22 01:23 10/20/22 06:00 Oxycodone-Apap 10-325 Mg Tablet PO 1 tab Q6H PRN Administration pain Pantoprazole Sodium 40 mg 10/19/22 09:00 10/19/22 09:[address] 40 Mg Tablet PO 40 mg DAILY DEMETRIS Administration Verapamil HCl 120 mg 10/19/22 09:00 10/19/22 09:47 Verapamil Er 240 Mg Tablet PO 120 mg DAILY DEMETRIS Administration PFSH Acute 2 PFSH: Medical History Anemia Anxiety ASHD (arteriosclerotic heart disease) Hyperlipidemia Hypertension Insomnia Murmur PVC (premature ventricular contraction) Social History Alcohol intake: never Marital status: Current gender identity: Female Vitals/I&O/Wt Last Vital Signs Temp 97.8 F 10/20/22 03:32 Pulse 58 L 10/20/22 07:14 Resp 21 H 10/20/22 09:19 BP 138/68 10/20/22 07:14 Pulse Ox 94 10/20/22 09:19 O2 Del Method 10/20/22 03:32 10/19/22 10/20/22 10/20/22 22:59 06:59 14:59 Intake Total 611.5 / 1446.119 264.581 / 264.581 Balance 611.5 / 1446.119 264.581 / 264.581 Weight last 48 hrs Weight 135 lb Physical Exam Narrative: GENERAL: In general she is uncomfortable and complaining of chest pain. HEENT: Exam within normal limits. NECK: Supple without jugular vein distention. The carotid upstroke is normal without bruits. BACK: Exam normal. LUNGS: Clear. HEART: Regular rate and rhythm. ABDOMEN: Benign without organomegaly or tenderness. EXTREMITIES: No edema. She has a very good left femoral pulse. She has been barely palpable radial pulses and a barely palpable right common femoral artery pulse. NEUROLOGIC: Exam normal. SKIN: Unremarkable. Data 10/20/22 05:50 10/20/22 05:50 A&P Assessment and plan (1) Implantable loop recorder present: (2) Femoral artery occlusion, right: (3) Renal artery stenosis: (4) NSTEMI (non-ST elevated myocardial infarction): (5) Atherosclerotic heart disease of [place] coronary artery with unstable angina pectoris: (6) Stented coronary artery: (7) Unstable angina: (8) Acute hypokalemia: (9) Hyperlipidemia: (10) Hypertension: Qualifiers: Hypertension type: essential hypertension Qualified Code(s): I10 - Essential (primary) hypertension Consult Attestations Medical Necessity Statement: Elevated troponin this morning and the findings on the EKG that the right coronary artery is involved. She either has in-stent restenosis, stent thrombosis or a new lesion in the right. We will proceed with coronary angiography as soon as possible. Coding Level of Care Code New Pt Acute Electric Bath Attendant for Chg Fwd Patient Type New History Detailed Exam Detailed Medical Decision Making Moderate Complexity Diagnoses Implantable loop recorder present Z95.818 Femoral artery occlusion, right I70.201 Renal artery stenosis I70.1 NSTEMI (non-ST elevated myocardial infarction) I21.4 Atherosclerotic heart disease of [place] coronary artery with unstable angina pectoris I25.110 Stented coronary artery Z95.5 Unstable angina I20.0 Acute hypokalemia E87.6 Hyperlipidemia E78.5 Hypertension I10 Hypertension type: essential hypertension
[2022-10-20 11:28] LABS: Glucose Point of Care 145 mg/dL (70-110)
[2022-10-20] MEDS: aspirin 81 mg EC Tablet PO (12:08)
[2022-10-20] MEDS: clopidogrel 75 mg Tablet PO (12:09)
[2022-10-20 12:45] LABS: Partial Thromboplastin Time 44.5 SECONDS (23.9-36.7)
[2022-10-20] MEDS: fentaNYL 50 mcg/mL INJ 2mL IVP (14:24)
[2022-10-20] MEDS: benzonatate 100 mg Capsule 200 MG PO (14:49)
[2022-10-20] MEDS: ipratropium-albuterol 3 mL Neb INHALATION (15:52)
--- NOTE | 2022-10-20 16:15 | XRR_ITS ---
PROCEDURE INFORMATION: Exam: XR Chest Exam date and time: 10/20/2022 4:40 PM Age: 66 years old Clinical indication: Other: Hypoxia TECHNIQUE: Imaging protocol: Radiologic exam of the chest. Views: 1 view. COMPARISON: CR (CHEST, ) 10/18/2022 8:32 PM FINDINGS: Tubes, catheters and devices: There is a loop recorder projected over the left chest. Lungs: There is marked interval increasing vascular congestion with cephalization of flow, interstitial edema, Jean-Pierre B lines and ground-glass opacities compatible with progressing CHF. Asymmetric airspace opacity in the right lower lobe is concerning for asymmetric airspace edema versus pneumonic infiltrate. Pleural spaces: Unremarkable. No pleural effusion. No pneumothorax. Heart/Mediastinum: The heart is enlarged. Bones/joints: No acute abnormality. XR/XR chest 1V portable [id number] IMPRESSION: 1. There is marked interval increasing vascular congestion with cephalization of flow, interstitial edema, Jean-Pierre B lines and ground-glass opacities compatible with progressing CHF. 2. Asymmetric airspace opacity in the right lower lobe is concerning for asymmetric airspace edema versus pneumonic infiltrate.
[2022-10-20] MEDS: sodium chloride 0.9% 1,000 ML 100 ML IV (16:28)
[2022-10-20] MEDS: lidocaine 1% 5 ML in potassium chloride premix 100 ML 25 ML IV (16:28)
[2022-10-20 16:57] LABS: Glucose Point of Care 122 mg/dL (70-110)
--- NOTE | 2022-10-20 18:06 | ECG_ITS ---
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 Measurements Intervals [place] Rate: 64 P: 63 VA: 169 QRS: 34 QRSD: 114 T: -50 QT: 447 QTc: 464 Interpretive Statements SINUS RHYTHM LOW QRS VOLTAGE IN PRECORDIAL LEADS [QRS DEFLECTION < 1.0 mV IN CHEST LEADS] POSSIBLE ANTERIOR MYOCARDIAL INFARCTION , OF INDETERMINATE AGE [30 ms Q WAVE IN V3/V4, OR R < 0.2 mV IN V4] MODERATE T-WAVE ABNORMALITY, CONSIDER INFERIOR ISCHEMIA [-0.1+ mV T-WAVE IN II/aVF] Compared to ECG 10/20/2022 07:23:51 Low QRS voltage now present Sinus bradycardia no longer present Myocardial infarct finding still present T-wave abnormality still present Possible ischemia still present Electronically Signed On 10-20-2022 20:07:34 KILN LABOURER by Eboni Aguirre M.D. [id number]
[2022-10-20] MEDS: pantoprazole 40 mg SDV IVP (18:18)
[2022-10-20] MEDS: FUROsemide 10 mg/mL SDV 2mL 20 MG IVP (18:26)
--- NOTE | 2022-10-20 19:04 | PM.MISC ---
Miscellaneous Note Purpose of Documentation: . Nurse called regarding this patient's recurrence of chest pain Note: According to this patient, she continued to have chest pain even after coming from the [employer]. The pain started getting worse after the femoral sheath was removed this evening. The pain went up to 8/10. She was nauseous and little diaphoretic. The EKG did not show any new changes. The EKG is almost similar to the one from this morning before the procedure. She has 1/2 to 1 mm elevation in the inferior leads. Patient had PCI of the PLV branch of the right coronary artery. Discussed with Dr. Robles. It was decided to restart the IV nitro and close monitoring. If the pain gets any worse tonight, may need to consider repeat cardiac catheterization to reevaluate the right coronary artery.
[2022-10-20 19:09] LABS: Anion Gap 23.4 (5-19); Blood Urea Nitrogen 13 mg/dL (8-23); Calcium 9.3 mg/dL (8.5-10.5); Carbon Dioxide 15 mmol/L (22-29); Chloride 102 mmol/L (98-107); Glomerular Filtration Rate 100.6 mL/min (90-130); Glucose 126 mg/dL (65-115); Osmolality Calculated 284 mOsm/kg (285-295); Potassium 4.4 mmol/L (3.5-5.1); Sodium 136 mmol/L (136-145)
[2022-10-20 19:21] LABS: Adenovirus Not Detected (NOT DETECT); Chlamydia Pneumoniae Not Detected (NOT DETECT); Coronavirus 229E,HKU1,NL63,OC4 Not Detected (NOT DETECT); Human Metapneumovirus Not Detected (NOT DETECT); Human Rhinovirus/Enterovirus Not Detected (NOT DETECT); Influenza A Not Detected (NOT DETECT); Influenza A H1 Not Detected (NOT DETECT); Influenza A H1-2009 Not Detected (NOT DETECT); Influenza A H3 Not Detected (NOT DETECT); Influenza B Not Detected (NOT DETECT); Mycoplasma Pneumoniae Not Detected (NOT DETECT); Parainfluenza Virus Type 1 Not Detected (NOT DETECT); Parainfluenza Virus Type 2 Not Detected (NOT DETECT); Parainfluenza Virus Type 3 Not Detected (NOT DETECT); Parainfluenza Virus Type 4 Not Detected (NOT DETECT); Respiratory Syncytial Virus A Not Detected (NOT DETECT); Respiratory Syncytial Virus B Not Detected (NOT DETECT); SARS-COV-2 Not Detected (NOT DETECT)
[2022-10-20] MEDS: nitroglycerin drip 50 MG/250 ML PREMIX 6 MG IV (19:40)
--- NOTE | 2022-10-20 20:12 | PC.NURSE ---
Shift Note 0723 AM- noted pt HR is in 36-40s. Checked on pt and she is vomiting, reported of severe chest pain, diaphoretic, oxycodone PRn given earlier by log rider.EKG taken for chest pain protocol, 1 tab SL 0.4 mg Nitro given PRN x chest pain given at 0744 AM. 0750 AM- notified Dr Aguirre via telephone. Informed of ekg taken and has lead changes,chest pain unrelieved by nitro SL. Received tel order to start pt on Nitro Drip protocol but start at 10 mcg/kg/min. Standby order for atropine IVP at bedside and to call drop crew laborer team. house sup notified and is aware. notified house sup of transfer order from . Received bed# in icu-11,room is occupied/unavailable. 0800 AM- Dr Clifford at pt's bedside to assess. Received orders for Dilaudid 0.5 IVP mg for pain& Ativan 0.5 mg IVP, PRN IV Zofran- pls see MAR for all the times meds were given by nurses. 0930 AM- Dr Robles at bedside. Received verbal order to stopped Heparin drip. Pt taken to drop crew laborer. Bedside report given to drop crew laborer nurses regarding meds given this morning. 1100- Pt back from drop crew laborer, dr robles is okay to keep the pt in CSU upon report from drop crew laborer. Pt is asleep, noted Pt spo2 was in the 80s, room air. administered pt 5 L NC by drop crew laborer nurse Mat, spo2 increase to 94-97%. Pt is awake but sleepy. left femoral arterial sheath attached to pressure bag. Aggrastat running at 11.2 mls/hr. received Dr Robles verbal order to infuse whole bag of aggrastat. start pt on 81 mg Aspirin, start 2.5 mg Xarelto BID tonight. 1430- pt noted to be wheezing and dry coughing. spo2 desat low 87% on [address] Clifford. he will put orders for meds and portable chest xray. pls see MAR for meds given at this time. 1505- Explained procedure to pt. Pt requested pt med prior to sheath pull. fentanyl given IVP as ordered. sheath pulled from left groin. Manual pressure held for 20 mins. hemostasis achieved. pedal pulses palpable +3 on left foot. no hematoma, swelling or bleeding. pt instructed on 6hr bedrest, activity restrictions on left ext. to call nurse for any unusual pain,burning sensation,numbness or wetness STAT. call light provided and pt verbalizes understanding. 1716-notified Dr Clifford via voalte that pt started to have another chest pain and right foot pain rated at 8,pain in mid back,vomiting post sheath pull. dressing is c/d/i no hematoma. chest xray resulted. Okay to give oxycodone PRN and give IVP once LAsix, IVP protonix. Pls see MAR for meds given at this time. 30 mins post oxy, pain down to 7 scale. 1717- notified Dr Aguirre via telp, received order for EKG stat. 1899-Dr aguirre at bedside. EKG result read. received order to start pt back on Nitro drip at 20 mcg/min. Bedside report given to night RN. Pt stated her pain on chest and right foot is down to 3 pain scale.
[2022-10-20 21:16] LABS: Glucose Point of Care 155 mg/dL (70-110)
[2022-10-20 21:43] LABS: Add Urine Microscopic? NO; Charge for UA Resulting for Rev
[2022-10-20 21:51] LABS: Bilirubin Urine Neg (Negative); Blood Urine Neg (Negative); Glucose Urine UA 4+ (Normal); Ketones Urine Negative (Negative); Leukocyte Esterase Urine Negative (Negative); Nitrate Urine Negative (Negative); Protein Urine Neg (Negative); Specific Gravity, Urine 1.015 (1.005-1.030); Urine Appearance Clear (CLEAR); Urine Color Yellow (Yellow); Urobilinogen Urine Neg (Negative); pH Urine 5 (5-7)
--- NOTE | 2022-10-20 22:03 | PC.NURSE ---
Spoke with Dr Dumont regarding patients complaints of nasea, unreieved with Zofran and complaining of increased SOB despite 02 SAT 94% on 2L. ordered STAT EKG, Troponin and chest xray.
--- NOTE | 2022-10-20 22:04 | ECG_ITS ---
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 Measurements Intervals [place] Rate: 58 P: 62 CA: 163 QRS: 26 QRSD: 105 T: -47 QT: 433 QTc: 427 Interpretive Statements SINUS BRADYCARDIA LOW QRS VOLTAGE IN PRECORDIAL LEADS [QRS DEFLECTION < 1.0 mV IN CHEST LEADS] POSSIBLE ANTERIOR MYOCARDIAL INFARCTION , PROBABLY OLD [30 ms Q WAVE IN V3/V4, OR R < 0.2 mV IN V4] ST ELEVATION, CONSIDER INFERIOR INJURY [MARKED ST ELEVATION W/O NORMALLY INFLECTED T-WAVE IN II/aVF] ACUTE AR Compared to ECG 10/20/2022 18:06:17 ST (T wave) deviation now present Sinus rhythm no longer present T-wave abnormality no longer present Possible ischemia no longer present Myocardial infarct finding still present Electronically Signed On 10-21-2022 20:25:28 PORTABLE GRINDING MACHINE OPERATOR by Eboni Aguirre M.D. [id number]
--- NOTE | 2022-10-20 22:05 | XRR_ITS ---
PROCEDURE INFORMATION: Exam: XR Chest Exam date and time: 10/20/2022 10:32 PM Age: 66 years old Clinical indication: Shortness of breath and other: Stemi; Prior surgery; Surgery date: 6+ months; Surgery type: Loop recorder TECHNIQUE: Imaging protocol: Radiologic exam of the chest. Views: 1 view. COMPARISON: CR (CHEST, ) 10/20/2022 4:40 PM FINDINGS: Tubes, catheters and devices: A loop recorder is present overlying the left cardiac border. Lungs: Compared with earlier today, there is improving aeration in the hemithoraces, most notably seen on the right. There are some residual patchy opacity seen in the right lung base and mild residual increased interstitial opacities present. Pleural spaces: Unremarkable. No pleural effusion. No pneumothorax. Heart/Mediastinum: Unremarkable. No cardiomegaly. Bones/joints: Unremarkable. XR/XR chest 1V portable [id number] IMPRESSION: Improving volume status and CHF compared with earlier today. Some patchy opacities persist in the right lung base and some residual increased interstitial opacities are present bilaterally.
--- NOTE | 2022-10-20 22:39 | XACV_ITS ---
Exam Room: 2 Ht: 163 cm Wt: 61 kg BSA: 1.67 m2 Gender: Female : 1955 Any Known Allergies: Morphine Exam Priority: Routine Procedure(s): Procedure Description: Diagnostic procedure Margaret SANTIAGO; Diagnostic Cath Status: Emergency Diagnostic Findings * Patient underwent angiography more than 12 hours ago for an occluded right coronary artery which was related to in-stent thrombosis. Balloon angioplasty opened the vessel. A while ago the patient began complaining of severe chest pain after complaining of intermittent chest pain all day long. Nursing personnel along with the hospitalist interpreted the monitor as acute ST segment elevation inferiorly. Dr. Aguirre was notified and called a STEMI alert. Patient was brought back to the Bioinformatics Support Specialist. * Coronary angiography of the right coronary artery revealed the vessel to be patent. There is no new occlusion. The vessel is similar to what it was at the end of the most recent procedure. This procedure was also done from the left common femoral artery. PCI Status: Emergency Conclusions 1. Patent right coronary artery post earlier intervention. Recommendations * Continued medical therapy. Interventional RX Recommendation: medical therapy and/or counseling Diagnostic RX Recommendation: medical therapy and/or counseling Pressures Phase:Rest AO : 130 / 42 ( 72 ) @ 5:33:37 PM Clinical Evaluation EBL: 5mL-10mL Procedural Details Procedure Consent Obtained. Pre-Procedure Time Out. Identified patient by full name and date of as verbalized by the patient/guarantor. Does the consent match the physician's order: N/A Emergent. Accurate & Complete Informed Consent: N/A Emergent. Inpatient/Outpatient History & Physical on Chart: N/A Emergent. If H&P is completed, is and addenduem needed: N/A Emergent; If yes, is the addendum complete: N/A Emergent. Visualize and Verify Site with Patient/Guarantor: N/A. Relevant Radiology Images available: N/A Emergent. The risks, benefits, and alternatives of sedation and/or procedure were discussed by physician. The patient agrees to continue. Procedure started. Current diagnosis: STEMI. PERRLA. Strong, equal hand power and recovery supervisor bilaterally. Lungs clear x 5 lobes. IV Site on Arrival: 20 gauge in the left anticubital. IV Site on Arrival: 20 gauge in the right anticubital. IV Fluids: 0.9% NaCl at KVO. 0 mL infused prior to lab animal technologist. Pre Procedural Pulses: right dorsalis pedis was Doppled. Pre Procedural Pulses: right posterior tibial was Doppled. Pre Procedural Pulses: left dorsalis pedis was 3+. Pre Procedural Pulses: left posterior tibial was 3+. Oxygen started at 2liters/min via nasal canula. bilateral groins was prepped with chloroprep then draped in the usual sterile fashion. Physician notified. Baseline sample Acquired. HR: 90 BPM. Physician arrived. Physician scrubbed in. Immediate Pre-Procedure Time Out. Correct Patient: N/A Emergent; Correct Procedure: N/A Emergent; Correct Site: N/A Emergent; Correct Patient Position: N/A Emergent; Correct Supplies: N/A Emergent; Dried Flammable Prep: N/A Emergent; Blood Products Available: N/A Emergent;. Lidocaine 1% infiltrated to the left groin. Arterial access obtained. 6 khmer JR 4 guide catheter was inserted over the wire. Multiple views taken of right coronary artery. A Suture was successful obtaining hemostatsis at the Left Femoral artery insertion site. Catheter out. Wire out. Post Procedure: Pulses reassessed and unchanged. PERRLA. Strong, equal hand power and recovery supervisor bilaterally. No VTE prophylaxis required. Medication's Wasted: Lidocaine 1% = 2 mL. Medication's Wasted: Heparin = 3000 units. Medication's Wasted: Other = versed 1 mg. Medication's Wasted: Other = fentanyl 75 mcg. Total IV fluids: 11 mL. Post-op diagnosis: chest pain. Complications: none. Estimated blood loss: 5mL-10mL. Responsiveness - Normal response to verbal stimuli; alert and oriented, PERRLA. Airway - Unaffected, no intervention required; spontaneous ventilation. Circulation: W/N/L, pulses unchanged. Nausea/Vomiting: No. Procedure completed. Patient transferred by bed to ICU. Vital chart was stopped. Access Site Site: Left Femoral artery Sheath Size: 6 Fr Hemostasis Method: Suture Hemostasis Success: Successful Procedure Medications Start: 11:15 PM Stop: 11:15 PM Medication: Versed Amount: 1 mg Route: I.V. Start: 11:19 PM Stop: 11:19 PM Medication: Fentanyl Amount: 25 mcg Route: I.V. I, the attending physician, have reviewed and verified all procedure medications. Yes, all medications given per verbal order History/Risk Factors Hypertension: Yes Dyslipidemia: Yes Peripheral Arterial Disease (PAD): No Myocardial Infarction ([place]): No Obesity: No Prior Interventions PCI: No CABG: No Valve Surgery: No Report Signatures Finalized by Dr. Milton Robles MD on 10/20/2022 11:45 PM
[2022-10-20] MEDS: prochlorperazine 10 mg/2 mL Inj 5 MG IVP (22:40)
[2022-10-20 22:54] LABS: Troponin T (5th) Once 5637 ng/L (0-10)
--- NOTE | 2022-10-20 23:30 | PC.NURSE ---
Report called to ICU, patient will be going to ICU 6 after cath. Patients belongings brought to ICU and patients family members brought to ICU waiting room.
[2022-10-21] VITALS (53 sets, daily range): BP systolic 102–155; BP diastolic 49–105; PULSE 59–98; RESP 14–18; TEMP 36.9–38.1; O2SAT 89–97
[2022-10-21] MEDS: sodium chloride 0.9% 1,000 ML 100 ML IV (00:32)
--- NOTE | 2022-10-21 00:34 | PC.NURSE ---
Addendum entered by Milly Diaz RN 10/21/22 05:44: Nitro drip was turned off by in clinical laboratory science professor. Original Note: Pt arrived from clinical laboratory science professor via hospital bed @2345. Pt was placed on continuos monitoring and 2L NC. Pt is reporting 0/10 chest pain and 2/10 foot pain. Pts belongings at bedside. Pt family @ bedside requesting that the pt receive anxiety and pain medication.
[2022-10-21] MEDS: oxyCODONE-APAP 10-325 mg Tablet 1 TAB PO ×4 (01:47→21:00)
--- NOTE | 2022-10-21 02:30 | PC.NURSE ---
Pt was offered PRN Xanax. This RN explained benefits and purpose of medication. Pt refused.
[2022-10-21] MEDS: metoclopramide 5 mg/mL SDV 2 mL IVP ×4 (03:00→20:58)
[2022-10-21 03:15] LABS: Basophils % 0.1 %; Eosinophils % 0.1 %; Hemoglobin 10.9 g/dL (11.5-15.3); Lymphocytes # 0.9 10^3/uL (0.8-4.8); Lymphocytes % 6.4 %; Mean Corpuscular HGB Conc 28.7 g/dL (30.0-36.0); Mean Corpuscular Hemoglobin 22.9 pg (28.0-34.0); Mean Corpuscular Volume 79.7 fl (81-99); Mean Platelet Volume 11.5 fL (7.4-10.4); Monocytes # 0.8 10^3/uL (0.2-0.9); Monocytes % 5.6 %; Neutrophils # 12.27 10^3/uL (1.8-7.7); Neutrophils % 87.3 %; Nucleated Red Blood Cells % 0 %; Platelet Count 274 10^3/cmm (130-400); Red Blood Count 4.77 10^6/uL (4.1-5.3); White Blood Count 14.1 10^3/uL (4.0-10.0)
--- NOTE | 2022-10-21 03:27 | PC.NURSE ---
Sheath removed @0254. Pressure held for 20 minutes. No bleeding noted. Vital signs stable. Pt tolerated well. Pt verbalized understanding regarding reportable signs and symptoms. See Post Cardiac Cath Flowsheet.
[2022-10-21 03:52] LABS: Alanine Aminotransferase 56 U/L (0-33); Albumin Level 3.7 g/dL (3.5-5.2); Alkaline Phosphatase 75 U/L (35-105); Anion Gap 23.6 (5-19); Aspartate Amino Transferase 220 U/L (0-32); Blood Urea Nitrogen 15 mg/dL (8-23); Carbon Dioxide 17 mmol/L (22-29); Chloride 105 mmol/L (98-107); Globulin 2.5 g/dL (1.3-4.6); Glomerular Filtration Rate 84.2 mL/min (90-130); Glucose 130 mg/dL (65-115); Magnesium 1.8 mg/dL (1.7-2.3); Osmolality Calculated 297 mOsm/kg (285-295); Potassium 3.6 mmol/L (3.5-5.1); Sodium 142 mmol/L (136-145); Total Bilirubin 0.3 mg/dL (0.15-1.2); Total Protein 6.2 g/dL (6.6-8.7)
[2022-10-21 07:13] LABS: Glucose Point of Care 114 mg/dL (70-110)
[2022-10-21] MEDS: ondansetron 2 mg/ML SDV 2 mL 4 MG IVP (07:21)
[2022-10-21] MEDS: FUROsemide 10 mg/mL SDV 4mL 40 MG IVP (07:26)
--- NOTE | 2022-10-21 07:39 | PC.NURSE ---
Patient complaining of nausea, shortness of breath, wheezing, and 7/10 pain in right foot at bedside report with other nurse. Patient AAOx4. Patient's oxygen not in nose, oxygen saturation on room air 89%. Oxygen placed back on patient, zofran given, fluids stopped, pain medication given, lasix given. Nurse left room and came back and patient again has oxygen off. Patient educated on keeping oxygen on. Patient has no complaints just after giving medications.
--- NOTE | 2022-10-21 09:07 | PM.PN ---
Subjective Subjective: Patient was having episodes of chest pain last night. She was taken back to the cardiac catheterization lab. Repeat angiogram revealed patent PLV. Etiology of the chest pain is not clear. Coronary spasm cannot be excluded. Medications: Medication Review Details: Current Medications Acetaminophen (Acetaminophen 325 Mg Tablet) 650 mg PO Q6H PRN PRN Reason: Mild/Mod Pain Or Temp >/= 101 Albuterol/Ipratropium (Ipratropium-Albuterol 3 Ml Neb) 3 ml INHALATION Q6H.RESP PRN PRN Reason: SHORTNESS OF BREATH Last Admin: 10/20/22 15:52 Dose: 3 ml Albuterol/Ipratropium (Ipratropium-Albuterol 3 Ml Neb) 3 ml INHALATION Q6H.RESP DEMETRIS Last Admin: 10/21/22 08:55 Dose: Not Given Alprazolam (Alprazolam 0.5 Mg Tablet) 1 mg PO TID PRN PRN Reason: ANXIETY Aspirin (Aspirin 81 Mg Ec Tablet) 81 mg PO DAILY DEMETRIS Last Admin: 10/20/22 12:08 Dose: 81 mg Atorvastatin Calcium (Atorvastatin 40 Mg Tablet) 80 mg PO BEDTIME DEM[facility]IS Benzonatate (Benzonatate 100 Mg Capsule) 200 mg PO TID PRN PRN Reason: COUGH Last Admin: 10/20/22 14:49 Dose: 200 mg Clopidogrel Bisulfate (Clopidogrel 75 Mg Tablet) 75 mg PO DAILY DEMETRIS Last Admin: 10/20/22 12:09 Dose: 75 mg Tirofiban/Sodium Chloride (Aggrastat) 5 mg in 100 mls @ 0 mls/hr IV .Q0M DEMETRIS; Protocol Nitroglycerin/Dextrose (Nitroglycerin Drip) 50 mg in 250 mls @ 0 mls/hr IV .Q0M DEMETRIS; Protocol Last Titration: 10/21/22 00:00 Dose: 0 mcg/min, 0 mls/hr Insulin Human Lispro (Insulin Lispro 100 Unit/1 Ml) 0 unit SUBCUT WM&BEDTIME DEMETRIS; Protocol Last Admin: 10/21/22 07:22 Dose: Not Given Lorazepam (Lorazepam 2 Mg/Ml Inj 1 Ml) 0.5 mg IVP Q4H PRN PRN Reason: ANXIETY Nitroglycerin (Nitroglycerin 0.4 Mg Sublingual Tablet) 0.4 mg SUBLINGUAL Q5M PRN PRN Reason: CHEST PAIN Last Admin: 10/20/22 07:44 Dose: 0.4 mg Nitroglycerin (Nitroglycerin 0.2 Mg Patch) 1 patch TRANSDERMA Q24H [facility] Last Admin: 10/20/22 15:39 Dose: Not Given Non-Formulary Medication Lunesta 3 Mg Tab 0 each PO BEDTIME [facility] Last Admin: 10/20/22 23:51 Dose: Not Given Non-Formulary Medication ( Butalbital- Acetaminophen-Caff 50-300-40 Mg) 1 tab PO QID PRN PRN Reason: Migraine Headache Last Admin: 10/20/22 12:09 Dose: 1 tab Ondansetron HCl (Ondansetron 2 Mg/Ml Sdv 2 Ml) 4 mg IVP Q8H PRN PRN Reason: vomiting, or N/V if npo Last Admin: 10/21/22 07:21 Dose: 4 mg Oxycodone/Acetaminophen (Oxycodone-Apap 10-325 Mg Tablet) 1 tab PO Q6H PRN PRN Reason: pain Last Admin: 10/21/22 07:26 Dose: 1 tab Pantoprazole Sodium (Pantoprazole 40 Mg Sdv) 40 mg IVP DAILY [facility] Last Admin: 10/20/22 18:18 Dose: 40 mg Rivaroxaban (Rivaroxaban 10 Mg Tablet) 2.5 mg PO BID [facility] Last Admin: 10/20/22 23:51 Dose: Not Given Vitals/I&O/Wt Last Vital Signs Temp 99.3 F 10/21/22 04:00 Pulse 81 10/21/22 08:56 Resp 15 10/21/22 08:56 BP 155/78 10/21/22 08:00 Pulse Ox 93 10/21/22 08:56 O2 Del Method 10/21/22 08:56 O2 Flow Rate 3 10/21/22 03:29 10/20/22 10/21/22 10/21/22 22:59 06:59 14:59 Intake Total 205.375 / 158.182 3183 / 1495.956 836.667 / 836.667 Output Total 1000 / 1000 550 / 1550 Balance -794.625 / -530.044 476 / -54.044 836.667 / 836.667 Physical Exam Narrative: GENERAL: The patient is alert and oriented times three. Not in any acute distress. Somewhat anxious HEENT: No significant pallor, icterus or lymphadenopathy.Oral cavity: There are no mucous membrane lesions. NECK: Trachea appears to be central. No masses noted. No JVD or thyromegaly appreciated. RESPIRATORY: Chest is symmetrical. No intercostals muscle retraction or any accessory muscle activation. There is no chest wall tenderness. Breath sounds are heard bilaterally. No rales or rhonchi heard. No evidence of any consolidation. BREASTS: Deferred. HEART: The heart sounds are normal. No S3 or S4. No significant murmurs. No pericardial rub ABDOMEN: No vessel pulsations or distention. No tenderness. No organomegaly appreciated. Bowel sounds are normally heard. : Deferred. RECTAL: Deferred. LYMPHATIC: No lymphadenopathy noted in the neck. EXTREMITIES: The dorsalis pedis and posterior at the right foot is nonpalpable. On the right side, the dorsalis pedis and posterior tibial pulses are palpable but weak. Good femoral pulses bilaterally. No hematoma or bleeding in the left groin MUSCULOSKELETAL: No acute joint deformities or swelling SKIN: There are no significant rashes or ecchymosis NEUROPSYCHIATRIC: The patient is alert and oriented x3. Appears to be in a good mood. No tremors or rigidity noted. Urinary Catheter Management: Delacruz: Cath Placed During This Visit: yes Reason for Continuing Indwelling Catheter: Accurate Measurement of Urinary Output in Critically Ill Patients Urinary Catheter Date of Insertion: 10/20/22 Urinary Catheter Time of Insertion: 18:45 Data 10/21/22 02:56 10/21/22 02:56 Other Labs: Laboratory Last Values WBC 14.1 10^3/uL (4.0-10.0) H 10/21/22 02:56 RBC 4.77 10^6/uL (4.1-5.3) 10/21/22 02:56 Hgb 10.9 g/dL (11.5-15.3) L 10/21/22 02:56 Hct 38.0 % (37.0-47.0) 10/21/22 02:56 MCV 79.7 fl (81-99) L 10/21/22 02:56 MCH 22.9 pg (28.0-34.0) L 10/21/22 02:56 MCHC 28.7 g/dL (30.0-36.0) L 10/21/22 02:56 RDW 17.0 % (12.1-15.1) H 10/21/22 02:56 Plt Count 274 10^3/cmm (130-400) 10/21/22 02:56 MPV 11.5 fL (7.4-10.4) H 10/21/22 02:56 Neut % (Auto) 87.3 % 10/21/22 02:56 Lymph % (Auto) 6.4 % 10/21/22 02:56 Bell % (Auto) 5.6 % 10/21/22 02:56 Eos % (Auto) 0.1 % 10/21/22 02:56 Baso % (Auto) 0.1 % 10/21/22 02:56 Neut # (Auto) 12.27 10^3/uL (1.8-7.7) H 10/21/22 02:56 Lymph # (Auto) 0.9 10^3/uL (0.8-4.8) 10/21/22 02:56 Bell # (Auto) 0.8 10^3/uL (0.2-0.9) 10/21/22 02:56 Eos # (Auto) 0.0 10^3/uL (0.0-0.8) 10/21/22 02:56 Baso # (Auto) 0.0 10^3/uL (0.0-0.1) 10/21/22 02:56 Nucleated RBC % (auto) 0 % 10/21/22 02:56 Nucleated RBCs # 0.0 /100WBC 10/21/22 02:56 PT 14.00 SECONDS (12.1-14.9) 10/19/22 02:20 INR 1.04 (0.8-1.2) 10/19/22 02:20 APTT 44.5 SECONDS (23.9-36.7) H 10/20/22 12:20 Sodium 142 mmol/L (136-145) 10/21/22 02:56 Potassium 3.6 mmol/L (3.5-5.1) 10/21/22 02:56 Chloride 105 mmol/L (98-107) 10/21/22 02:56 Carbon Dioxide 17 mmol/L (22-29) L 10/21/22 02:56 Anion Gap 23.6 (5-19) H 10/21/22 02:56 BUN 15 mg/dL (8-23) 10/21/22 02:56 Creatinine 0.7 mg/dL (0.5-0.9) 10/21/22 02:56 GFR Calculation 84.2 mL/min (90-130) L 10/21/22 02:56 Glucose 130 mg/dL (65-115) H 10/21/22 02:56 POC Glucose 114 mg/dL (70-110) H 10/21/22 07:09 Estimat Average Glucose 197 10/18/22 19:17 Hemoglobin A1c 8.5 % (4.0-6.0) H 10/18/22 19:17 Calculated Osmolality 297 mOsm/kg (285-295) H 10/21/22 02:56 Calcium 9.0 mg/dL (8.5-10.5) 10/21/22 02:56 Magnesium 1.8 mg/dL (1.7-2.3) 10/21/22 02:56 Total Bilirubin 0.3 mg/dL (0.15-1.2) 10/21/22 02:56 AST 220 U/L (0-32) H 10/21/22 02:56 ALT 56 U/L (0-33) H 10/21/22 02:56 Alkaline Phosphatase 75 U/L (35-105) 10/21/22 02:56 Troponin T Gen 5 ng/L 5637 ng/L (0-10) H* 10/20/22 18:00 Troponin T Baseline 17 ng/L (0-10) H 10/18/22 19:17 Troponin T 120 Minute 21.76 ng/L (0-10) H 10/18/22 21:00 Delta Troponin T 4.76 ABS# (0-10) 10/18/22 21:00 Troponin T Hi Sens 6Hr 54.27 ng/L (0-10) H 10/19/22 02:20 Troponin T Hi Sens 6Hr Delta 37.27 ng/L (0-12) H* 10/19/22 02:20 NT-Pro-B Natriuret Pep 373 pg/mL (0-125) H 10/18/22 19:17 NT-Pro-B Natriuret Pep 380 pg/mL (0-125) H 10/18/22 19:17 Total Protein 6.2 g/dL (6.6-8.7) L 10/21/22 02:56 Albumin 3.7 g/dL (3.5-5.2) 10/21/22 02:56 Globulin 2.5 g/dL (1.3-4.6) 10/21/22 02:56 Triglycerides 199 mg/dL (0-150) H 10/18/22 19:17 Cholesterol 264 mg/dL (0-200) H 10/18/22 19:17 LDL Cholesterol, Calc 151 mg/dL (50-129) H 10/18/22 19:17 HDL Cholesterol 73 mg/dL (60-100) 10/18/22 19:17 LDL/HDL Ratio 2.07 RATIO (0.00-3.22) 10/18/22 19:17 Cholesterol/HDL Ratio 3.62 mg/dL (0.0-4.40) 10/18/22 19:17 Lipase 33 U/L (13-60) 10/20/22 05:50 Procalcitonin 0.08 ng/mL (0-0.5) 10/18/22 19:17 TSH 2.85 uIU/mL (0.27-4.20) 10/18/22 19:17 Urine Color Yellow (Yellow) 10/20/22 20:55 Urine Appearance Clear (CLEAR) 10/20/22 20:55 Urine pH 5 (5-7) 10/20/22 20:55 Ur Specific [place] 1.015 (1.005-1.030) 10/20/22 20:55 Urine Protein Neg (Negative) 10/20/22 20:55 Urine Glucose (UA) 4+ (Normal) H 10/20/22 20:55 Urine Ketones Negative (Negative) 10/20/22 20:55 Urine Blood Neg (Negative) 10/20/22 20:55 Urine Nitrate Negative (Negative) 10/20/22 20:55 Urine Bilirubin Neg (Negative) 10/20/22 20:55 Urine Urobilinogen Neg mg/dL (Negative) 10/20/22 20:55 Ur Leukocyte Esterase Negative (Negative) 10/20/22 20:55 Coronavirus 229E (PCR) Not detected (NOT DETECT) 10/20/22 17:20 SARS-CoV-2 (PCR) Not detected (NOT DETECT) 10/20/22 17:20 EKG 1: My Interpretation: EKG from last night revealed half to [address] elevation in lead II and aVF; leads V5 V6. A&P Assessment and plan (1) Atherosclerotic heart disease of [place] coronary artery with unstable angina pectoris: Patient status post PCI of the PLV branch of the right coronary artery. Currently seems to be stable. Her chest pain is somewhat unexplained. The troponin T is trending upwards still. Was found to be around 8000 this morning. EKG showed persistent ST-T changes in the inferolateral leads (2) NSTEMI (non-ST elevated myocardial infarction): I may discontinue the Plavix and start her on Brilinta. Other medications may be continued. Also start her on isosorbide mononitrate 30 mg p.o. daily (3) Renal artery stenosis: This patient had bilateral renal artery stenting. May continue on the current medications. 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 Good femoral pulses (5) Acute hypokalemia: Possibly on the nausea and vomiting the potassium level is. The potassium is within normal limits now. (6) Re-entry ventricular arrhythmia: Currently she seems to be stable with no significant arrhythmias. (7) Implantable loop recorder present: No documented malignant ventricular arrhythmia. Continue the monitoring (8) Hyperlipidemia: We will continue on the current medications. (9) Hypertension: Currently normotensive. May currently on the current medications. Qualifiers: Hypertension type: essential hypertension Qualified Code(s): I10 - Essential (primary) hypertension (10) T2DM (type 2 diabetes mellitus): May continue the Jardiance. Blood sugar management as per the primary Plan If the patient continues remain stable, may be transferred to the cardiac stepdown unit. May continue on the current medications. Attestations Medical Necessity Statement*: Patient requires continued hospital stay for close monitoring and further management Coding Level of Care Code Acute Carpenter Mate for Chg Fwd History Expanded Problem Focused Exam Expanded Problem Focused Medical Decision Making Moderate Complexity Diagnoses Atherosclerotic heart disease of [place] coronary artery with unstable angina pectoris I25.110 NSTEMI (non-ST elevated myocardial infarction) I21.4 Renal artery stenosis I70.1 Femoral artery occlusion, right I70.201 Acute hypokalemia E87.6 Re-entry ventricular arrhythmia I47.0 Implantable loop recorder present Z95.818 Hyperlipidemia E78.5 Hypertension I10 Hypertension type: essential hypertension T2DM (type 2 diabetes mellitus) E11.9
[2022-10-21] MEDS: rivaroxaban 10 mg Tablet 2.5 MG PO ×2 (09:31→18:11)
[2022-10-21] MEDS: clopidogrel 75 mg Tablet PO (09:31)
[2022-10-21] MEDS: pantoprazole 40 mg SDV IVP (09:32)
[2022-10-21] MEDS: aspirin 81 mg EC Tablet PO (09:32)
--- NOTE | 2022-10-21 09:46 | ECG_ITS ---
[facility] Test Date: 2022-10-21 Pat Name: Heather Young Department: Room: [facility] Gender: Female Emu Farmer: : 1955 Requested By: Eboni Aguirre Order Number: [id number] Gee MD: Eboni Aguirre M.D. Measurements Intervals Crowell Rate: 73 P: 77 WA: 176 QRS: 27 QRSD: 104 T: -52 QT: 409 QTc: 452 Interpretive Statements SINUS RHYTHM POSSIBLE LEFT ATRIAL ENLARGEMENT [-0.1mV P-WAVE IN V1/V2] LOW QRS VOLTAGE IN PRECORDIAL LEADS [QRS DEFLECTION < 1.0 mV IN CHEST LEADS] ST DEVIATION AND MODERATE T-WAVE ABNORMALITY, CONSIDER INFERIOR ISCHEMIA/injury [-0.1+ mV T-WAVE IN II/aVF] Compared to ECG 10/20/2022 22:07:05 T-wave abnormality now present Possible ischemia now present Sinus bradycardia no longer present Myocardial infarct finding no longer present ST (T wave) deviation no longer present Electronically Signed On 10-21-2022 20:28:39 LAN SPECIALIST by Eboni Aguirre M.D. [email or web address]
[2022-10-21 11:07] LABS: Troponin T (5th) Once 8475 ng/L (0-10)
[2022-10-21] MEDS: isosorbide mononitrate ER 30 mg Tablet PO (11:12)
[2022-10-21 11:49] LABS: Glucose Point of Care 198 mg/dL (70-110)
--- NOTE | 2022-10-21 12:08 | PC.CHAP ---
Pastoral Care Encounter/Spiritual Assessment Type of Contact [] Declined caramel candy maker helper visit [] Patient/Family/Request visit [] Outpatient visit [] Follow-up visit [] Physician referral [] Code/Alert [x] Routine visit [] Staff referral [] Actively dying [x] Patient sleeping [] Family support [] [] Out of room [] Palliative care [] [x] Receiving care in room [] Pre-surgical visit [] Trauma [] Long length of stay [x] ICU visit [] Other: Relational/Emotional Strength [] Patient feels connected with others/family/visitors/staff [] Distress [] Loneliness/isolation [] Abandonment Spirituality of Patient [] Person of Wendi [] Attends Yarsani of their Wendi [] Believes in Prayer [] Reads Bible or Orthodoxy materials [] There are Spiritual issues to be addressed [employer] Developer Interventions [x] Prayer [] Active listening [] Non-anxious presence [] Spiritual/emotional support [] Crisis/trauma care [] Spiritual counseling [] Bereavement support [] Provided bereavement packet [] Provided Bible/devotional materials [] Provided toy/stuffed animal, coloring book to patient or family member [] Provided Communion [] Anointing/[place] [] Salvation [x] Completed spiritual assessment [] Other: Impact on Illness or Injury [] Angry [] Fearful [] Anxious [] Often cries [] Exhaustion [] Unable to work [] Unable to attend pentecostalism [] Unable to walk/stand [] Unable to read [] Unable to drive [] Unable to eat/drink [] Unable to sleep [] Unable to be with family [] Patient intubated [] Other: Summary Time spent with patient
--- NOTE | 2022-10-21 12:58 | PM.PN ---
Subjective Subjective: Hospital course, labs appreciated. On examination patient lying in bed on 2 L oxygen supplementation complaining of difficulty in breathing and nausea. She states she is feeling the same way before Lasix yesterday. Underwent cardiac catheterization again yesterday evening. Family Helper report appreciated. Patient denies any chest pain currently has remained hemodynamically stable. Vitals/I&O/Wt Last Vital Signs Temp 98.4 F 10/21/22 12:00 Pulse 59 L 10/21/22 12:00 Resp 16 10/21/22 12:00 BP 129/75 10/21/22 12:00 Pulse Ox 96 10/21/22 12:00 O2 Del Method 10/21/22 12:00 O2 Flow Rate 2 10/21/22 12:00 10/20/22 10/21/22 10/21/22 22:59 06:59 14:59 Intake Total 205.375 / 053.806 4618 / 8074.202 1960.667 / 1076.667 Output Total 1000 / 1000 550 / 1550 1000 / 1000 Balance -794.625 / -530.044 476 / -54.044 76.667 / 76.667 Physical Exam Const: COMMON NORMALS: patient oriented x3 and alert GENERAL APPEARANCE: cooperative ORIENTATION/CONSCIOUSNESS: Yes awake HENMT: COMMON NORMALS: oropharynx normal Neck/C-Spine: COMMON NORMALS: no JVD Resp: COMMON NORMALS: normal respiratory effort and clear to auscultation bilaterally AUSCULTATION: clear to auscultation bilaterally Cardio: COMMON NORMALS: no JVD, regular rhythm, S1 normal heart sound present, S2 normal heart sound present and No murmurs present (Cardio) RHYTHM: regular rhythm HEART SOUNDS: S1 normal heart sound present and S2 normal heart sound present GI: COMMON NORMALS: Normal to inspection, nondistended, normoactive bowel sounds present, Soft to palpation and non-tender PALPATION: Yes Soft to palpation Extremity: COMMON NORMALS: no joint enlargement and no pedal edema Neuro: COMMON NORMALS: patient oriented x3 and moves all extremities SENSORIUM/ORIENTATION: Yes alert Skin: COMMON NORMALS: no rashes or lesions noted GENERAL SKIN EXAM: no rashes or lesions noted Urinary Catheter Management: Delacruz: Cath Placed During This Visit: yes Reason for Continuing Indwelling Catheter: Accurate Measurement of Urinary Output in Critically Ill Patients Urinary Catheter Date of Insertion: 10/20/22 Urinary Catheter Time of Insertion: 18:45 Data 10/21/22 02:56 10/21/22 02:56 A&P Assessment and plan (1) NSTEMI (non-ST elevated myocardial infarction): Appreciate cardiology recommendations. Post PCI. Continue with aspirin, Plavix, statin. Holding off beta-george due to bradycardia. Imdur added as per cardiology. (2) Congestive heart failure: Stop IV fluids. IV Lasix 40 mg one-time. Monitor renal functions. Oxygen supplementation keeping saturation over 90%. Strict input output charting. We will try to uptitrate heart failure regimen medications. (3) Ischemic cardiomyopathy: Echocardiogram done shows an EF of 45% with grade 1 diastolic dysfunction, dilated LV with regional wall motion normality (4) Atrial fibrillation: Rate controlled. Restart Xarelto. Qualifiers: Atrial fibrillation type: persistent (not longstanding) Qualified Code(s): I48.19 - Other persistent atrial fibrillation (5) Hyperlipidemia: (6) Hypertension: Qualifiers: Hypertension type: essential hypertension Qualified Code(s): I10 - Essential (primary) hypertension (7) Coronary artery disease: (8) Stented coronary artery: (9) T2DM (type 2 diabetes mellitus): (10) Acute hypokalemia: Replace additional potassium. (11) Nausea & vomiting: Most likely secondary to non-ST elevation [place] post PCI yesterday. Does have transaminitis as well. Patient also has history of chronic migraine. Continue Zofran and Reglan as needed. Switch to full liquid diet. Continue with IV Protonix. Continues to have nausea and vomiting will plan for barium swallow versus surgical consultation for EGD. (12) Elevated transaminase level: Plan #Chest pain/unstable angina #History of CAD status post stents x4 #Peripheral vascular disease #Stented renal arteries, femoral artery #History of hyperlipidemia, hypertension Full code DVT prophylaxis: Patient is on Xarelto. Transfer to CSU. Attestations Medical Necessity Statement*: Requires further hospitalization for management of non-ST elevation FL post PCI, nausea and vomiting leading to poor oral intake Time Spent in Patient Care: Greater than 35 minutes Coding Level of Care Code Acute Production Inspector for [facility] Fwd Diagnoses NSTEMI (non-ST elevated myocardial infarction) I21.4 Congestive heart failure I50.9 Ischemic cardiomyopathy I25.5 Atrial fibrillation I48.19 Atrial fibrillation type: persistent (not longstanding) Hyperlipidemia E78.5 Hypertension I10 Hypertension type: essential hypertension Coronary artery disease I25.10 Stented coronary artery Z95.5 T2DM (type 2 diabetes mellitus) E11.9 Acute hypokalemia E87.6 Nausea & vomiting R11.2 Elevated transaminase level R74.01
[2022-10-21] MEDS: insulin lispro 100 unit/1 mL SUBCUT ×3 (12:59→20:59)
[2022-10-21 17:57] LABS: Glucose Point of Care 161 mg/dL (70-110)
[2022-10-21] MEDS: acetaminophen 325 mg Tablet 650 MG PO (18:11)
[2022-10-21] MEDS: sucralfate 1 gm/10 mL Oral Liq UDC PO ×2 (18:11→20:46)
--- NOTE | 2022-10-21 19:00 | PC.NURSE ---
Shift report given to JOSEY Atkins. Consisted on updates of fever, nausea, Right foot pain, increased troponins, but overall a non-evenful shift.
[2022-10-21 20:50] LABS: Glucose Point of Care 158 mg/dL (70-110)
[2022-10-22] VITALS (16 sets, daily range): BP systolic 121–142; BP diastolic 60–80; PULSE 59–76; RESP 16–18; TEMP 37.3–37.9; O2SAT 88–100
[2022-10-22] MEDS: acetaminophen 325 mg Tablet 650 MG PO ×2 (03:55→09:16)
[2022-10-22] MEDS: oxyCODONE-APAP 10-325 mg Tablet 1 TAB PO (03:56)
[2022-10-22 04:22] LABS: Basophils % 0.3 %; Eosinophils % 0.1 %; Hematocrit 33.6 % (37.0-47.0); Lymphocytes # 1.2 10^3/uL (0.8-4.8); Lymphocytes % 9.7 %; Mean Corpuscular HGB Conc 29.8 g/dL (30.0-36.0); Mean Corpuscular Hemoglobin 22.9 pg (28.0-34.0); Mean Corpuscular Volume 76.9 fl (81-99); Mean Platelet Volume 11.5 fL (7.4-10.4); Monocytes # 1.1 10^3/uL (0.2-0.9); Monocytes % 9.2 %; Neutrophils # 9.65 10^3/uL (1.8-7.7); Nucleated Red Blood Cells % 0 %; Platelet Count 236 10^3/cmm (130-400); Red Blood Count 4.37 10^6/uL (4.1-5.3); Red Cell Distribution Width 16.9 % (12.1-15.1); White Blood Count 12.1 10^3/uL (4.0-10.0)
[2022-10-22 04:43] LABS: Alanine Aminotransferase 41 U/L (0-33); Albumin Level 3.8 g/dL (3.5-5.2); Alkaline Phosphatase 65 U/L (35-105); Anion Gap 15.4 (5-19); Aspartate Amino Transferase 102 U/L (0-32); Blood Urea Nitrogen 16 mg/dL (8-23); Calcium 8.5 mg/dL (8.5-10.5); Carbon Dioxide 26 mmol/L (22-29); Chloride 100 mmol/L (98-107); Globulin 2.5 g/dL (1.3-4.6); Glomerular Filtration Rate 100.6 mL/min (90-130); Glucose 116 mg/dL (65-115); Osmolality Calculated 288 mOsm/kg (285-295); Potassium 3.4 mmol/L (3.5-5.1); Sodium 138 mmol/L (136-145); Total Bilirubin 0.3 mg/dL (0.15-1.2); Total Protein 6.3 g/dL (6.6-8.7)
[2022-10-22] MEDS: metoclopramide 5 mg/mL SDV 2 mL IVP (05:54)
[2022-10-22 07:30] LABS: Glucose Point of Care 131 mg/dL (70-110)
[2022-10-22] MEDS: potassium chloride ER 20 mEq Tablet 40 MEQ PO (07:37)
[2022-10-22] MEDS: FUROsemide 40 mg Tablet PO (07:38)
--- NOTE | 2022-10-22 08:30 | P.PN_ITS ---
Subjective Medications: Medication Review Details: Current Medications Acetaminophen (Acetaminophen 325 Mg Tablet) 650 mg PO Q6H PRN PRN Reason: Mild/Mod Pain Or Temp >/= 101 Last Admin: 10/22/22 03:55 Dose: 650 mg Albuterol/Ipratropium (Ipratropium-Albuterol 3 Ml Neb) 3 ml INHALATION Q6H.RESP PRN PRN Reason: SHORTNESS OF BREATH Last Admin: 10/20/22 15:52 Dose: 3 ml Alprazolam (Alprazolam 0.5 Mg Tablet) 1 mg PO TID PRN PRN Reason: ANXIETY Aspirin (Aspirin 81 Mg Ec Tablet) 81 mg PO DAILY [facility] Last Admin: 10/21/22 09:32 Dose: 81 mg Atorvastatin Calcium (Atorvastatin 40 Mg Tablet) 80 mg PO BEDTIME [facility] Last Admin: 10/21/22 21:12 Dose: Not Given Benzonatate (Benzonatate 100 Mg Capsule) 200 mg PO TID PRN PRN Reason: COUGH Last Admin: 10/20/22 14:49 Dose: 200 mg Furosemide (Furosemide 40 Mg Tablet) 40 mg PO DAILY@0800 [facility] Last Admin: 10/22/22 07:38 Dose: 40 mg Insulin Human Lispro (Insulin Lispro 100 Unit/1 Ml) 0 unit SUBCUT WM&BEDTIME [facility]; Protocol Last Admin: 10/22/22 07:31 Dose: Not Given Isosorbide Mononitrate (Isosorbide Mononitrate Er 30 Mg Tablet) 30 mg PO DAILY [facility] Last Admin: 10/21/22 11:12 Dose: 30 mg Metoclopramide HCl (Metoclopramide 5 Mg/Ml Sdv 2 Ml) 5 mg IVP Q6H PRN PRN Reason: NAUSEA AND VOMITING Last Admin: 10/22/22 05:54 Dose: 5 mg Metoprolol Succinate (Metoprolol Succinate Er (24 Hr) 25 Mg Tablet) 12.5 mg PO DAILY [facility] Nitroglycerin (Nitroglycerin 0.4 Mg Sublingual Tablet) 0.4 mg SUBLINGUAL Q5M PRN PRN Reason: CHEST PAIN Last Admin: 10/20/22 07:44 Dose: 0.4 mg Non-Formulary Medication Lunesta 3 Mg Tab 0 each PO BEDTIME [facility] Last Admin: 10/21/22 20:44 Dose: 1 each Non-Formulary Medication ( Butalbital- Acetaminophen-Caff 50-300-40 Mg) 1 tab PO QID PRN PRN Reason: Migraine Headache Last Admin: 10/20/22 12:09 Dose: 1 tab Ondansetron HCl (Ondansetron 2 Mg/Ml Sdv 2 Ml) 4 mg IVP Q8H PRN PRN Reason: vomiting, or N/V if npo Last Admin: 10/21/22 07:21 Dose: 4 mg Oxycodone/Acetaminophen (Oxycodone-Apap 10-325 Mg Tablet) 1 tab PO Q6H PRN PRN Reason: pain Last Admin: 10/22/22 03:56 Dose: 1 tab Pantoprazole Sodium (Pantoprazole 40 Mg Sdv) 40 mg IVP DAILY [facility] Last Admin: 10/21/22 09:32 Dose: 40 mg Rivaroxaban (Rivaroxaban 10 Mg Tablet) 2.5 mg PO BID [facility] Last Admin: 10/21/22 18:11 Dose: 2.5 mg Sucralfate (Sucralfate 1 Gm/10 Ml Oral Liq Udc) 1 gm PO AC&BEDTIME [facility] Last Admin: 10/22/22 06:07 Dose: Not Given Ticagrelor (Ticagrelor 90 Mg Tablet) 90 mg PO BID [facility] Vitals/I&O/Wt Last Vital Signs Temp 99.1 F 10/22/22 06:02 Pulse 72 10/22/22 06:00 Resp 16 10/22/22 03:56 BP 142/79 10/22/22 04:00 Pulse Ox 92 10/22/22 04:00 O2 Del Method 10/21/22 23:30 O2 Flow Rate 2 10/21/22 23:30 10/21/22 10/22/22 10/22/22 22:59 06:59 14:59 Intake Total 500 / 1576.667 Output Total 1300 / 2300 400 / 2700 Balance -800 / -723.333 -400 / -1123.333 Physical Exam Urinary Catheter Management: Delacruz: Cath Placed During This Visit: yes Reason for Continuing Indwelling Catheter: Accurate Measurement of Urinary Output in Critically Ill Patients Urinary Catheter Date of Insertion: 10/20/22 Urinary Catheter Time of Insertion: 18:45 Data 10/22/22 03:53 10/22/22 03:53 Other Labs: Laboratory Last Values WBC 12.1 10^3/uL (4.0-10.0) H 10/22/22 03:53 RBC 4.37 10^6/uL (4.1-5.3) 10/22/22 03:53 Hgb 10.0 g/dL (11.5-15.3) L 10/22/22 03:53 Hct 33.6 % (37.0-47.0) L 10/22/22 03:53 MCV 76.9 fl (81-99) L 10/22/22 03:53 MCH 22.9 pg (28.0-34.0) L 10/22/22 03:53 MCHC 29.8 g/dL (30.0-36.0) L 10/22/22 03:53 RDW 16.9 % (12.1-15.1) H 10/22/22 03:53 Plt Count 236 10^3/cmm (130-400) 10/22/22 03:53 MPV 11.5 fL (7.4-10.4) H 10/22/22 03:53 Neut % (Auto) 80.0 % 10/22/22 03:53 Lymph % (Auto) 9.7 % 10/22/22 03:53 [place] % (Auto) 9.2 % 10/22/22 03:53 Eos % (Auto) 0.1 % 10/22/22 03:53 Baso % (Auto) 0.3 % 10/22/22 03:53 Neut # (Auto) 9.65 10^3/uL (1.8-7.7) H 10/22/22 03:53 Lymph # (Auto) 1.2 10^3/uL (0.8-4.8) 10/22/22 03:53 [place] # (Auto) 1.1 10^3/uL (0.2-0.9) H 10/22/22 03:53 Eos # (Auto) 0.0 10^3/uL (0.0-0.8) 10/22/22 03:53 Baso # (Auto) 0.0 10^3/uL (0.0-0.1) 10/22/22 03:53 Nucleated RBC % (auto) 0 % 10/22/22 03:53 Nucleated RBCs # 0.0 /100WBC 10/22/22 03:53 PT 14.00 SECONDS (12.1-14.9) 10/19/22 02:20 INR 1.04 (0.8-1.2) 10/19/22 02:20 APTT 44.5 SECONDS (23.9-36.7) H 10/20/22 12:20 Sodium 138 mmol/L (136-145) 10/22/22 03:53 Potassium 3.4 mmol/L (3.5-5.1) L 10/22/22 03:53 Chloride 100 mmol/L (98-107) 10/22/22 03:53 Carbon Dioxide 26 mmol/L (22-29) 10/22/22 03:53 Anion Gap 15.4 (5-19) 10/22/22 03:53 BUN 16 mg/dL (8-23) 10/22/22 03:53 Creatinine 0.6 mg/dL (0.5-0.9) 10/22/22 03:53 GFR Calculation 100.6 mL/min (90-130) 10/22/22 03:53 Glucose 116 mg/dL (65-115) H 10/22/22 03:53 POC Glucose 131 mg/dL (70-110) H 10/22/22 07:23 Estimat Average Glucose 197 10/18/22 19:17 Hemoglobin A1c 8.5 % (4.0-6.0) H 10/18/22 19:17 Calculated Osmolality 288 mOsm/kg (285-295) 10/22/22 03:53 Calcium 8.5 mg/dL (8.5-10.5) 10/22/22 03:53 Magnesium 1.8 mg/dL (1.7-2.3) 10/21/22 02:56 Total Bilirubin 0.3 mg/dL (0.15-1.2) 10/22/22 03:53 AST 102 U/L (0-32) H 10/22/22 03:53 ALT 41 U/L (0-33) H 10/22/22 03:53 Alkaline Phosphatase 65 U/L (35-105) 10/22/22 03:53 Troponin T Gen 5 ng/L 8475 ng/L (0-10) H* 10/21/22 02:56 Troponin T Baseline 17 ng/L (0-10) H 10/18/22 19:17 Troponin T 120 Minute 21.76 ng/L (0-10) H 10/18/22 21:00 Delta Troponin T 4.76 ABS# (0-10) 10/18/22 21:00 Troponin T Hi Sens 6Hr 54.27 ng/L (0-10) H 10/19/22 02:20 Troponin T Hi Sens 6Hr Delta 37.27 ng/L (0-12) H* 10/19/22 02:20 NT-Pro-B Natriuret Pep 373 pg/mL (0-125) H 10/18/22 19:17 NT-Pro-B Natriuret Pep 380 pg/mL (0-125) H 10/18/22 19:17 Total Protein 6.3 g/dL (6.6-8.7) L 10/22/22 03:53 Albumin 3.8 g/dL (3.5-5.2) 10/22/22 03:53 Globulin 2.5 g/dL (1.3-4.6) 10/22/22 03:53 Triglycerides 199 mg/dL (0-150) H 10/18/22 19:17 Cholesterol 264 mg/dL (0-200) H 10/18/22 19:17 LDL Cholesterol, Calc 151 mg/dL (50-129) H 10/18/22 19:17 HDL Cholesterol 73 mg/dL (60-100) 10/18/22 19:17 LDL/HDL Ratio 2.07 RATIO (0.00-3.22) 10/18/22 19:17 Cholesterol/HDL Ratio 3.62 mg/dL (0.0-4.40) 10/18/22 19:17 Lipase 33 U/L (13-60) 10/20/22 05:50 Procalcitonin 0.08 ng/mL (0-0.5) 10/18/22 19:17 TSH 2.85 uIU/mL (0.27-4.20) 10/18/22 19:17 Urine Color Yellow (Yellow) 10/20/22 20:55 Urine Appearance Clear (CLEAR) 10/20/22 20:55 Urine pH 5 (5-7) 10/20/22 20:55 Ur Specific [place] 1.015 (1.005-1.030) 10/20/22 20:55 Urine Protein Neg (Negative) 10/20/22 20:55 Urine Glucose (UA) 4+ (Normal) H 10/20/22 20:55 Urine Ketones Negative (Negative) 10/20/22 20:55 Urine Blood Neg (Negative) 10/20/22 20:55 Urine Nitrate Negative (Negative) 10/20/22 20:55 Urine Bilirubin Neg (Negative) 10/20/22 20:55 Urine Urobilinogen Neg mg/dL (Negative) 10/20/22 20:55 Ur Leukocyte Esterase Negative (Negative) 10/20/22 20:55 Coronavirus 229E (PCR) Not detected (NOT DETECT) 10/20/22 17:20 SARS-CoV-2 (PCR) Not detected (NOT DETECT) 10/20/22 17:20 A&P Assessment and plan (1) Atherosclerotic heart disease of [place] coronary artery with unstable angina pectoris: Patient status post PCI of the PLV branch of the right coronary artery. Currently seems to be stable. Her chest pain is somewhat unexplained. The troponin T is trending upwards still. Was found to be around 8000 this morning. EKG showed persistent ST-T changes in the inferolateral leads (2) NSTEMI (non-ST elevated myocardial infarction): I may discontinue the Plavix and start her on Brilinta. Other medications may be continued. Also start her on isosorbide mononitrate 30 mg p.o. daily (3) Renal artery stenosis: This patient had bilateral renal artery stenting. May continue on the current medications. 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 Good femoral pulses (5) Acute hypokalemia: Possibly on the nausea and vomiting the potassium level is. The potassium is within normal limits now. (6) Re-entry ventricular arrhythmia: Currently she seems to be stable with no significant arrhythmias. (7) Implantable loop recorder present: No documented malignant ventricular arrhythmia. Continue the monitoring (8) Hyperlipidemia: We will continue on the current medications. (9) Hypertension: Currently normotensive. May currently on the current medications. Qualifiers: Hypertension type: essential hypertension Qualified Code(s): I10 - Essential (primary) hypertension (10) T2DM (type 2 diabetes mellitus): May continue the Jardiance. Blood sugar management as per the primary Plan If the patient continues remain stable, may be transferred to the cardiac stepdown unit. May continue on the current medications. Coding Level of Care Code Acute [employer] for [place] [employer] Diagnoses Atherosclerotic heart disease of [place] coronary artery with unstable angina pectoris I25.110 NSTEMI (non-ST elevated myocardial infarction) I21.4 Renal artery stenosis I70.1 Femoral artery occlusion, right I70.201 Acute hypokalemia E87.6 Re-entry ventricular arrhythmia I47.0 Implantable loop recorder present Z95.818 Hyperlipidemia E78.5 Hypertension I10 Hypertension type: essential hypertension T2DM (type 2 diabetes mellitus) E11.9
[2022-10-22] MEDS: ticagrelor 90 mg Tablet PO (08:34)
[2022-10-22] MEDS: metoprolol succinate ER (24 HR) 25 mg Tablet 12.5 MG PO (08:35)
[2022-10-22] MEDS: aspirin 81 mg EC Tablet PO (08:35)
[2022-10-22] MEDS: pantoprazole 40 mg SDV IVP (08:36)
[2022-10-22] MEDS: isosorbide mononitrate ER 30 mg Tablet PO (08:36)
[2022-10-22] MEDS: rivaroxaban 10 mg Tablet 2.5 MG PO (08:36)
[2022-10-22] MEDS: ondansetron 2 mg/ML SDV 2 mL 4 MG IVP (08:39)
--- NOTE | 2022-10-22 09:12 | PC.NURSE ---
Stool Patient's BM dry, hard, and with large visible chunks of blood. Patient states she has internal and external hemorrhoids and has never got them looked at. She does not want to receive and further work up on this matter. Dr. Leonard notified.
--- NOTE | 2022-10-22 09:19 | PM.DCS ---
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: Status: Acute (2) NSTEMI (non-ST elevated myocardial infarction): Status: Acute (3) Renal artery stenosis: Status: Inactive (4) Femoral artery occlusion, right: Status: Inactive (5) Acute hypokalemia: Status: Acute (6) Re-entry ventricular arrhythmia: Status: Inactive (7) Implantable loop recorder present: Status: Acute (8) Hyperlipidemia: Status: Acute (9) Hypertension: Status: Acute Qualifiers: Hypertension type: essential hypertension Qualified Code(s): I10 - Essential (primary) hypertension (10) T2DM (type 2 diabetes mellitus): Status: Acute Reason for Visit Reason for Visit: CP PAIN Brief History: Heather Young is a 66 year old female with a history of atherosclerotic heart disease, status post multiple PCI's, renal artery stenosis, status post renal artery stenting presenting with a 3 weeks history of chest pain.? She was found to have elevated troponin T.? Apparently this patient has been in her baseline state of health up until 3 weeks ago when she started having chest pains.? She described as a mid substernal pain, radiated to the left side of the neck, left shoulder and to the left arm.? She may have associated shortness of breath, nausea and occasional sweating.? The pain may go up to 9/10 intensity.? She has been having chest pains almost every day.? Each time it may last for several minutes to several hours.? Yesterday the pain was getting more worse.? Intensity of the pain was 10/10.? For that reason, she was brought to the emergency room.? She denies any fever or chills.? No no cough.? She was applying Nitropatch on both arms to relieve the pain.? She has been getting some relief of the pain upon yesterday when she did not have much of a relief. She is being followed by a bottle filler in the [facility] in [place].? She had several angiograms in the past? She had a coronary angiogram in 2012, 2014, 2016 and 2016.? She had had? PCI of the RCA and LAD in the past.? Most recent angiogram in 2016 revealed patent stents in the LAD and the RCA.? According to have the most recent angiogram was done in this hospital by Dr. Brown. In 2019, she had stenting of both renal arteries at the [facility] in [place].? According the patient, while the physician was closing the femoral arteria puncture site, accidentally the artery got occluded and she ended up in staying in the hospital for? 5 weeks or so.? She almost lost her right leg.? She is currently having numbness of the right foot and also chronic pain.? In December 2020, she presented with pain and discoloration of the right leg.? She had extensive clots in the iliac and femoral arteries.? She underwent intervention of these at the [facility] in [place].? Details are not available. She has a history of hypertension, dyslipidemia and type 2 diabetes.? She used to take metformin but because of stomach issues, she was taken off this medication.? Currently she is taking Jardiance. She was found to be severely hypokalemic yesterday.? She was given IV potassium supplement.? Her potassium was 2.5 which went up to 3.0 this morning. She also is taking Xarelto 2.5 mg p.o. twice daily ever since the femoral artery intervention.? She took the last dose yesterday morning.? She is also on Plavix.? She is taking oxycodone for the leg pain. At the time of my examination her chest pain is 2/10. She also has a history of ventricular arrhythmia.? She had an attempted EP study 4 years ago.? She was placed on a loop recorder 4 years ago which was explanted last December and a new loop recorder is in place now.? The exact reason for the implant is not clear at this time.? She also has a questionable history of bradycardia. Hospital Course Hospital Course Patient was admitted to the hospital further evaluation and management of chest pain thought to be secondary to non-ST elevation NE. She was started on heparin drip. Cardiology was consulted. During hospitalization patient continued to have chest pain and developed ST elevation in lead II. She underwent cardiac angiogram on 10/20 which showed right coronary artery dominance, patent LAD which is relatively small. He is a 60% stenosis in proximal vessel just prior to initiation of stent in RCA which occupied middle third of the vessel and extends all the way around the acute margin. In the distal portion of the line of stents the vessel is occluded prior to its entry into PDA. Patient underwent balloon angioplasty of in-stent thrombosis. Post cardiac catheterization showed continue to have chest pain for which EKG was done which was concerning for recurrence of ST elevation NE hence she underwent cardiac angiogram again on 8 at night which at this time showed patent stent as per prior cardiac angiogram. Patient was transferred to ICU for further monitoring. Echocardiogram was done which showed an EF of 45% with grade 1 diastolic dysfunction, mildly increased LA size and severe diffuse hypokinesia of inferior lateral and lateral wall with dilated LV cavity. During hospitalization patient had recurrence of nausea and vomiting along with transaminitis which is thought secondary to cardiac injury. She was treated conservatively with bowel rest and diet was gradually advanced as current. Mechanical soft. Transaminitis resolved by itself. Patient also had occasional low-grade fever up to 100.4 Fahrenheit. UA, COVID-19 PCR was negative. Patient remains on room air without cough during hospitalization. Did not have any diarrhea. She has been discharged in hemodynamically stable condition on aspirin, Brilinta, Xarelto, metoprolol 12.5 mg twice daily, Lasix 20 mg oral daily along with potassium supplements with advised to follow-up with primary care provider and nurse practitioner from cardiology within next [address] Aguirre within next 1 month. Physical Exam Const: COMMON NORMALS: patient oriented x3 and alert GENERAL APPEARANCE: cooperative ORIENTATION/CONSCIOUSNESS: Yes awake HENMT: COMMON NORMALS: oropharynx normal Neck/C-Spine: COMMON NORMALS: no JVD Resp: COMMON NORMALS: normal respiratory effort and clear to auscultation bilaterally AUSCULTATION: clear to auscultation bilaterally Cardio: COMMON NORMALS: no JVD, regular rhythm, S1 normal heart sound present, S2 normal heart sound present and No murmurs present (Cardio) RHYTHM: regular rhythm HEART SOUNDS: S1 normal heart sound present and S2 normal heart sound present GI: COMMON NORMALS: Normal to inspection, nondistended, normoactive bowel sounds present, Soft to palpation and non-tender PALPATION: Yes Soft to palpation Extremity: COMMON NORMALS: no joint enlargement and no pedal edema Neuro: COMMON NORMALS: patient oriented x3 and moves all extremities SENSORIUM/ORIENTATION: Yes alert Skin: COMMON NORMALS: no rashes or lesions noted GENERAL SKIN EXAM: no rashes or lesions noted Urinary Catheter Management: Delacruz: Cath Placed During This Visit: yes Reason for Continuing Indwelling Catheter: Accurate Measurement of Urinary Output in Critically Ill Patients Urinary Catheter Date of Insertion: 10/20/22 Urinary Catheter Time of Insertion: 18:45 Discharge Data Studies Completed and Pending Completed Studies During Hospitalization Category Date Time Status PREFORM MACHINE OPERATOR request for service Routine Exams 10/20/22 09:09 Completed PREFORM MACHINE OPERATOR request for service Routine Exams 10/20/22 22:39 Completed CXRP [XR chest 1V portable [id number]] Routine Exams 10/20/22 16:15 Completed XR chest 1V portable [id number] Stat Exams 10/18/22 20:20 Completed XR chest 1V portable [id number] Stat Exams 10/20/22 22:05 Completed CV. echo complete* [id number] Urgent Ultrasound 10/19/22 01:24 Completed Pending at discharge Category Date Time Status Complete Blood Count w/Auto AM LABS Lab 10/23/22 04:00 Ordered Comprehensive Metabolic Panel AM LABS Lab 10/23/22 04:00 Ordered Radiology Impressions Chest X-Ray 10/20/22 22:05 IMPRESSION: Improving volume status and CHF compared with earlier today. Some patchy opacities persist in the right lung base and some residual increased interstitial opacities are present bilaterally. Echocardiogram: CONCLUSIONS ?Severe diffuse hypokinesia of the inferolateral and lateral wall segments.? Mildly dilated LV cavity. ? LV ejection fraction around 45%. ?Grade I/IV diastolic dysfunction (abnormal relaxation filling?pattern), normal to mildly elevated filling pressures. ?Mildly increased left atrial size. ?Thickened mitral valve. Trace mitral valve regurgitation. ?Mild aortic valve calcification. Trace aortic valve?regurgitation. ?There is no pericardial effusion. ?There are no intracardiac masses. ?Compared to the study from 10/12/2015, there is a significant?drop in the LV ejection fraction from 64% to 45%. ?Dr Eboni Aguirre MD [facility] ?(Electronically Signed) ?Final Date:? ? ? 19 October 2022 ? 21:19 Laboratory Results WBC 12.1 10^3/uL (4.0-10.0) H 10/22/22 03:53 RBC 4.37 10^6/uL (4.1-5.3) 10/22/22 03:53 Hgb 10.0 g/dL (11.5-15.3) L 10/22/22 03:53 Hct 33.6 % (37.0-47.0) L 10/22/22 03:53 MCV 76.9 fl (81-99) L 10/22/22 03:53 MCH 22.9 pg (28.0-34.0) L 10/22/22 03:53 MCHC 29.8 g/dL (30.0-36.0) L 10/22/22 03:53 RDW 16.9 % (12.1-15.1) H 10/22/22 03:53 Plt Count 236 10^3/cmm (130-400) 10/22/22 03:53 MPV 11.5 fL (7.4-10.4) H 10/22/22 03:53 Neut % (Auto) 80.0 % 10/22/22 03:53 Lymph % (Auto) 9.7 % 10/22/22 03:53 Kaufman % (Auto) 9.2 % 10/22/22 03:53 Eos % (Auto) 0.1 % 10/22/22 03:53 Baso % (Auto) 0.3 % 10/22/22 03:53 Neut # (Auto) 9.65 10^3/uL (1.8-7.7) H 10/22/22 03:53 Lymph # (Auto) 1.2 10^3/uL (0.8-4.8) 10/22/22 03:53 Kaufman # (Auto) 1.1 10^3/uL (0.2-0.9) H 10/22/22 03:53 Eos # (Auto) 0.0 10^3/uL (0.0-0.8) 10/22/22 03:53 Baso # (Auto) 0.0 10^3/uL (0.0-0.1) 10/22/22 03:53 Nucleated RBC % (auto) 0 % 10/22/22 03:53 Nucleated RBCs # 0.0 /100WBC 10/22/22 03:53 PT 14.00 SECONDS (12.1-14.9) 10/19/22 02:20 INR 1.04 (0.8-1.2) 10/19/22 02:20 APTT 44.5 SECONDS (23.9-36.7) H 10/20/22 12:20 Sodium 138 mmol/L (136-145) 10/22/22 03:53 Potassium 3.4 mmol/L (3.5-5.1) L 10/22/22 03:53 Chloride 100 mmol/L (98-107) 10/22/22 03:53 Carbon Dioxide 26 mmol/L (22-29) 10/22/22 03:53 Anion Gap 15.4 (5-19) 10/22/22 03:53 BUN 16 mg/dL (8-23) 10/22/22 03:53 Creatinine 0.6 mg/dL (0.5-0.9) 10/22/22 03:53 GFR Calculation 100.6 mL/min (90-130) 10/22/22 03:53 Glucose 116 mg/dL (65-115) H 10/22/22 03:53 POC Glucose 131 mg/dL (70-110) H 10/22/22 07:23 Estimat Average Glucose 197 10/18/22 19:17 Hemoglobin A1c 8.5 % (4.0-6.0) H 10/18/22 19:17 Calculated Osmolality 288 mOsm/kg (285-295) 10/22/22 03:53 Calcium 8.5 mg/dL (8.5-10.5) 10/22/22 03:53 Magnesium 1.8 mg/dL (1.7-2.3) 10/21/22 02:56 Total Bilirubin 0.3 mg/dL (0.15-1.2) 10/22/22 03:53 AST 102 U/L (0-32) H 10/22/22 03:53 ALT 41 U/L (0-33) H 10/22/22 03:53 Alkaline Phosphatase 65 U/L (35-105) 10/22/22 03:53 Troponin T Gen 5 ng/L 8475 ng/L (0-10) H* 10/21/22 02:56 Troponin T Baseline 17 ng/L (0-10) H 10/18/22 19:17 Troponin T 120 Minute 21.76 ng/L (0-10) H 10/18/22 21:00 Delta Troponin T 4.76 ABS# (0-10) 10/18/22 21:00 Troponin T Hi Sens 6Hr 54.27 ng/L (0-10) H 10/19/22 02:20 Troponin T Hi Sens 6Hr Delta 37.27 ng/L (0-12) H* 10/19/22 02:20 NT-Pro-B Natriuret Pep 373 pg/mL (0-125) H 10/18/22 19:17 NT-Pro-B Natriuret Pep 380 pg/mL (0-125) H 10/18/22 19:17 Total Protein 6.3 g/dL (6.6-8.7) L 10/22/22 03:53 Albumin 3.8 g/dL (3.5-5.2) 10/22/22 03:53 Globulin 2.5 g/dL (1.3-4.6) 10/22/22 03:53 Triglycerides 199 mg/dL (0-150) H 10/18/22 19:17 Cholesterol 264 mg/dL (0-200) H 10/18/22 19:17 LDL Cholesterol, Calc 151 mg/dL (50-129) H 10/18/22 19:17 HDL Cholesterol 73 mg/dL (60-100) 10/18/22 19:17 LDL/HDL Ratio 2.07 RATIO (0.00-3.22) 10/18/22 19:17 Cholesterol/HDL Ratio 3.62 mg/dL (0.0-4.40) 10/18/22 19:17 Lipase 33 U/L (13-60) 10/20/22 05:50 Procalcitonin 0.08 ng/mL (0-0.5) 10/18/22 19:17 TSH 2.85 uIU/mL (0.27-4.20) 10/18/22 19:17 Urine Color Yellow (Yellow) 10/20/22 20:55 Urine Appearance Clear (CLEAR) 10/20/22 20:55 Urine pH 5 (5-7) 10/20/22 20:55 Ur Specific [place] 1.015 (1.005-1.030) 10/20/22 20:55 Urine Protein Neg (Negative) 10/20/22 20:55 Urine Glucose (UA) 4+ (Normal) H 10/20/22 20:55 Urine Ketones Negative (Negative) 10/20/22 20:55 Urine Blood Neg (Negative) 10/20/22 20:55 Urine Nitrate Negative (Negative) 10/20/22 20:55 Urine Bilirubin Neg (Negative) 10/20/22 20:55 Urine Urobilinogen Neg mg/dL (Negative) 10/20/22 20:55 Ur Leukocyte Esterase Negative (Negative) 10/20/22 20:55 Coronavirus 229E (PCR) Not detected (NOT DETECT) 10/20/22 17:20 SARS-CoV-2 (PCR) Not detected (NOT DETECT) 10/20/22 17:20 Vitals Last Vital Signs Temp 99.1 F 10/22/22 06:02 Pulse 76 10/22/22 09:13 Resp 16 10/22/22 09:13 BP 138/72 10/22/22 09:00 Pulse Ox 98 10/22/22 09:13 O2 Del Method 10/22/22 09:13 O2 Flow Rate 2 10/21/22 23:30 Discharge Plan Discharge Patient Disposition: Home Condition: Stable Prescriptions: New aspirin 81 mg Tablet,Delayed Release (Dr/Ec) 81 mg PO DAILY Qty: 30 0RF sucralfate 100 mg/mL Suspension 1 g PO AC&BEDTIME Qty: 300 0RF Brilinta 90 mg Tablet 90 mg PO BID 60 Days Qty: 120 0RF atorvastatin 40 mg Tablet 80 mg PO BEDTIME Qty: 60 0RF isosorbide mononitrate 30 mg Tablet Extended Release 24 Hr 30 mg PO DAILY Qty: 30 0RF furosemide 40 mg Tablet 20 mg PO DAILY@0800 Qty: 30 0RF metoprolol tartrate 25 mg tablet 12.5 mg PO Q12H Qty: 30 0RF Continued Xarelto 2.5 mg Tablet 2.5 mg PO BID pantoprazole 40 mg Tablet,Delayed Release (Dr/Ec) 40 mg PO QAM eszopiclone [Lunesta] 3 mg Tablet 3 mg PO BEDTIME potassium chloride 10 mEq tablet extended release 10 meq PO BEDTIME aclmviqjfm-oddiwydkkkswi-ryce 50-325-40 mg tablet 1 tab PO QID PRN (Reason: Migraine Headache) nateglinide 60 mg tablet 60 mg PO TID PRN (Reason: blood sugar) Rx Instructions: (pt not started taking as of 10/19/2022) oxycodone-acetaminophen 5-325 mg tablet 1 tab PO Q8H PRN (Reason: Pain) Nitrostat 0.4 mg Tablet, Sublingual 0.4 mg SUBLINGUAL Q5M PRN (Reason: Chest Pain) Rx Instructions: do not exceed 3 doses per episode ProAir HFA 90 mcg/actuation Hfa Aerosol Inhaler 2 puff INHALATION Q4H PRN (Reason: Shortness Of Breath) Vitamin D3 125 mcg (5,000 unit) Tablet 125 mcg PO QAM Jardiance 25 mg tablet 25 mg PO QAM Discontinued clopidogrel [Plavix] 75 mg tablet 75 mg PO QAM hydrochlorothiazide 25 mg Tablet 25 mg PO QAM verapamil 240 mg tablet extended release See Rx Instructions .ROUTE .COMPLEX Rx Instructions: 240mg po qam, 120mg po at noon and 120-240mg po at bedtime if needed Discharge Orders: Discharge Order (Routine); Ordered 10/22/22 Ordered By: Christopher Leonard Referrals: Eboni Aguirre MD [Physician] - 1 month Ana Dyer FNP [Nurse Practitioner] - 1 week Monica Alex MD [Primary Care Provider] - 1 week Discharge Diet: Cardiac and Diabetic Discharge Activity: Resume usual activity and Increase activity as tolerated Patient Instructions: Opioid Safety Activity Restrictions/Additional Instructions: Please follow-up with your primary care provider and Ana Dyer/cardiology nurse practitioner within the next 1 week. Follow-up with Dr. Aguirre cardiology within next 1 month. Medication changes have been done. Do not take verapamil going forward. Take metoprolol 12.5 mg twice daily. Lasix 20 mg oral daily along with potassium supplement. Do not take hydralazine going forward. Please repeat CMP with your primary care provider within next 1 week Discharge Attestations Time Spent in Discharge Care*: greater than 30 min Specific Discharge Activities: educating patient, discussing with pcp/other providers, discussing with registered nurse hh case manager/social workers/dc planners, documenting/other paperwork and evaluating patient/reviewing data Status at Discharge: Cognitive status at discharge: cognitively intact, Behavioral status at discharge: cooperative, Functional status at discharge: independent ambulation, Overall status at discharge: patient is back to baseline Quality Metrics Clinical Quality Measures [ No reported AMI, CVA or VTE this stay] Coding Level of Care Code Acute Chg FW DC note Diagnoses 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
--- NOTE | 2022-10-22 10:34 | PC.CHAP ---
Pastoral Care Encounter/Spiritual Assessment Type of Contact [] Declined field irrigation worker visit [] Patient/Family/Request visit [] Outpatient visit [] Follow-up visit [] Physician referral [] Code/Alert [x] Routine visit [] Staff referral [] Actively dying [x] Patient sleeping [] Family support [] [] Out of room [] Palliative care [] [] Receiving care in room [] Pre-surgical visit [] Trauma [] Long length of stay [x] ICU visit [] Other: Relational/Emotional Strength [] Patient feels connected with others/family/visitors/staff [] Distress [] Loneliness/isolation [] Abandonment Spirituality of Patient [] Person of Wendi [] Attends Episcopalian of their Wendi [] Believes in Prayer [] Reads Bible or Yazidism materials [] There are Spiritual issues to be addressed Instruction Assistant Principal Interventions [x] Prayer [] Active listening [] Non-anxious presence [] Spiritual/emotional support [] Crisis/trauma care [] Spiritual counseling [] Bereavement support [] Provided bereavement packet [] Provided Bible/devotional materials [] Provided toy/stuffed animal, coloring book to patient or family member [] Provided Communion [] Anointing/[place] [] Salvation [x] Completed spiritual assessment [] Other: Impact on Illness or Injury [] Angry [] Fearful [] Anxious [] Often cries [] Exhaustion [] Unable to work [] Unable to attend episcopalian [] Unable to walk/stand [] Unable to read [] Unable to drive [] Unable to eat/drink [] Unable to sleep [] Unable to be with family [] Patient intubated [] Other: Summary Time spent with patient
--- NOTE | 2022-10-22 10:42 | PC.NURSE ---
Discharge instructions given to patient, prescriptions sent to pharmacy. Patient has no further questions.
--- NOTE | 2022-10-22 11:11 | PC.NURSE ---
7232 Patient wheeled to POV with belongings by this nurse accompanied by family. Patient AAOx4, no complaints. Family driving.
== END 2022-10-22 10:55 | disposition home or self-care (01) | DRG 250 ==
LOC: ER 22:34 → CSU 22:35 → ICU 10-21 00:03
PROVIDERS: Internal Medicine; Internal Medicine Cardiovascular Disease; Admitting Provider Internal Medicine; Emergency Provider Family Medicine; PCP Family Medicine; Visit Provider Student in an Organized Health Care Education/Training Program
PROC: 02703ZZ Dilation of Coronary Artery, One Artery, Percutaneous Approach (ICD-10-PCS; principal; 2022-10-20 10:00)
PROC: 02703ZZ Dilation of Coronary Artery, One Artery, Percutaneous Approach (ICD-10-PCS; 2022-10-20 10:00)
DX: T82.855A Stenosis of coronary artery stent, initial encounter (principal); I21.4 Non-ST elevation (NSTEMI) myocardial infarction; I25.110 Atherosclerotic heart disease of native coronary artery with unstable angina pectoris; I47.0 Re-entry ventricular arrhythmia; I20.1 Angina pectoris with documented spasm; I48.19 Other persistent atrial fibrillation; Y71.1 Therapeutic (nonsurgical) and rehabilitative cardiovascular devices associated with adverse incidents; Z95.5 Presence of coronary angioplasty implant and graft; I70.1 Atherosclerosis of renal artery; I70.201 Unspecified atherosclerosis of native arteries of extremities, right leg; E87.6 Hypokalemia; E78.5 Hyperlipidemia, unspecified; I10 Essential (primary) hypertension; E11.51 Type 2 diabetes mellitus with diabetic peripheral angiopathy without gangrene; Z79.84 Long term (current) use of oral hypoglycemic drugs; Z79.01 Long term (current) use of anticoagulants; Z79.891 Long term (current) use of opiate analgesic; Z79.51 Long term (current) use of inhaled steroids; I25.5 Ischemic cardiomyopathy; F41.9 Anxiety disorder, unspecified; D64.9 Anemia, unspecified; Z95.818 Presence of other cardiac implants and grafts
CPT/HCPCS: 36415; 36416; 51702; 71045; 80048; 80053; 80061; 81003; 82962; 83036; 83690; 83735; 83880; 84145; 84443; 84484; 85025; 85610; 85730; 87635; 92920; 93005; 93306; 93454; 94640; 96365; 96366; 96367; 96372; 96375; 99152; 99153; 99285; C1725; C1769; C1887; C1894; C9113; J0461; J0780; J1170; J1644; J1815; J1940; J2060; J2250; J2405; J2765; J3010; J3475; J3480; J3490; J7030; Q9967

== ENCOUNTER 2024-10-16 00:09 | Inpatient (IN) | payer MEDICARE, OTHER, SELFPAY ==
[2024-10-16] VITALS (62 sets, daily range): BP systolic 100–158; BP diastolic 47–88; PULSE 52–92; RESP 11–30; TEMP 36.4–37.3; O2SAT 88–100; BMI 24.9; BMI 25.1; BMI 25.6
--- NOTE | 2024-10-16 00:12 | ECG_ITS ---
[facility] 2024[facility]16 Pat Name: Heather Young Department: Room: Gender: Female Client Liaison: : 1955 Requested By: Heriberto Richter Order Number: [id number] Gee MD: Eboni Aguirre M.D. Measurements Intervals [place] Rate: 86 P: 52 HI: 195 QRS: 34 QRSD: 160 T: -13 QT: 407 QTc: 488 Interpretive Statements SINUS RHYTHM LEFT BUNDLE BRANCH BLOCK [120+ ms QRS DURATION, 80+ ms Q/S IN V1/V2, 85+ ms R IN I/aVL/V5/V6] Compared to ECG 10/21/2022 10:24:05 Left bundle-branch block now present T-wave abnormality no longer present Possible ischemia no longer present Electronically Signed On 10-16-2024 21:27:04 C CONSULTANT by Eboni Aguirre M.D. [email or web address]
--- NOTE | 2024-10-16 00:39 | XRR_ITS ---
PROCEDURE INFORMATION: Exam: XR Chest Exam date and time: 10/16/2024 12:50 AM Age: 68 years old Clinical indication: Chest pressure; Prior surgery; Surgery date: 6+ months; Surgery type: Loop recorder; Patient HX: C/O chest pain TECHNIQUE: Imaging protocol: Radiologic exam of the chest. Views: 1 view. COMPARISON: CR (CHEST, ) 10/20/2022 10:32 PM FINDINGS: Tubes, catheters and devices: Leadless cardiac device is present over the left chest wall. Lungs: Unremarkable. No consolidation. Pleural spaces: Unremarkable. No pleural effusion. No pneumothorax. Heart/Mediastinum: Unremarkable. No cardiomegaly. Vasculature: Atherosclerotic disease of the aortic arch. Bones/joints: Scattered degenerative change of the visualized osseous structures. Uynkv-iduqghc-ahvp-left calcific tendinosis of the superior rotator cuff. Organs: Status post cholecystectomy. XR/XR chest 1V portable [id number] IMPRESSION: No acute cardiopulmonary findings.
[2024-10-16 01:06] LABS: Troponin(5th) Baseline 23 ng/L (0-10)
--- NOTE | 2024-10-16 02:08 | ED_ITS ---
HPI - Chest Pain 2 General: Chief Complaint: Chest Pain Stated Complaint: CP Time Seen by Provider: 10/16/24 00:40 History of Present Illness: The patient presents to the emergency department with a chief complaint of chest pain that has been occurring frequently for the past month, particularly with exertion. The pain has increased in frequency over the past couple of weeks. The patient has been using Nitroglycerin to control the pain, which has been effective until tonight. At 10:30 PM, the patient experienced chest pain after removing their Nitro patch and lying down to sleep. The pain did not subside with Nitroglycerin as it had previously, and the patient's blood pressure increased to 185/96. The patient has a history of heart attack, congestive heart failure, and microvascular disease, with four stents in the heart, two in the renal arteries, and one in the femoral artery. The patient denies any history of COPD but reports wheezing that began after the chest pain episode tonight. The patient has experienced wheezing in the past, which was managed with Lasix, but it has not been an issue for several months until now. The patient denies any shortness of breath unless it is accompanied by chest pain. Related Data Home Medications Medication Instructions Recorded Confirmed albuterol sulfate 90 mcg/actuation 2 puff inhalation Q4H PRN 10/19/22 10/23/22 aerosol inhaler (ProAir HFA) Shortness Of Breath eusvjwwwqm-bhjwjfmoidmtk-sqepfxpc 1 tab PO QID PRN Migraine Headache 10/19/22 10/23/22 50 mg-325 mg-40 mg tablet cholecalciferol (vitamin D3) 125 125 mcg PO QAM 10/19/22 10/23/22 mcg (5,000 unit) tablet (Vitamin D3) empagliflozin 25 mg tablet 25 mg PO QAM 10/19/22 10/23/22 (Jardiance) eszopiclone 3 mg tablet (Lunesta) 3 mg PO BEDTIME 10/19/22 10/23/22 nateglinide 60 mg tablet 60 mg PO TID PRN blood sugar 10/19/22 10/23/22 nitroglycerin 0.4 mg sublingual 0.4 mg sublingual Q5M PRN Chest 10/19/22 10/23/22 tablet (Nitrostat) Pain oxycodone-acetaminophen 5 mg-325 1 tab PO Q8H PRN Pain 10/19/22 10/23/22 mg tablet pantoprazole 40 mg tablet,delayed 40 mg PO QAM 10/19/22 10/23/22 release potassium chloride 10 mEq 10 meq PO BEDTIME 10/19/22 10/23/22 tablet,extended release rivaroxaban 2.5 mg tablet (Xarelto) 2.5 mg PO BID 10/19/22 10/23/22 Previous Rx's Medication Instructions Recorded aspirin 81 mg tablet,delayed 81 mg PO DAILY #30 tabs 10/22/22 release atorvastatin 40 mg tablet 80 mg (2 x 40 mg) PO BEDTIME #60 10/22/22 tabs furosemide 40 mg tablet 20 mg (1/2 x 40 mg) PO DAILY@0800 10/22/22 #30 tabs isosorbide mononitrate 30 mg 30 mg PO DAILY #30 tabs 10/22/22 tablet,extended release 24 hr metoprolol tartrate 25 mg tablet 12.5 mg (1/2 x 25 mg) PO Q12H #30 10/22/22 tabs sucralfate 100 mg/mL oral 1 g (10 mL) PO AC&BEDTIME #300 mL 10/22/22 suspension Allergies Allergy/AdvReac Type Severity Reaction Status Date / Time amoxicillin [From Augmentin] Allergy Unknown Verified 10/31/22 09:38 clavulanic acid Allergy Unknown Verified 10/31/22 09:38 [From Augmentin] iron Allergy UNK Verified 10/31/22 09:38 lansoprazole [From Prevacid] Allergy UNK Verified 10/31/22 09:38 morphine Allergy ADR-Nausea Verified 10/31/22 09:38 PFSH ED 2 PFSH: Medical History Anemia Anxiety ASHD (arteriosclerotic heart disease) 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, right Hyperlipidemia Hypertension Implantable loop recorder present Insomnia Migraine with aura and without status migrainosus Murmur PVC (premature ventricular contraction) Re-entry ventricular arrhythmia Renal artery stenosis Social History Alcohol intake: never Substance/Drug Use: never Marital status: Current gender identity: Female Physical Exam 2 Const: COMMON NORMALS: no acute distress, patient oriented x3, healthy appearing, alert and well nourished HENMT: COMMON NORMALS: normocephalic HEAD & SCALP: normocephalic Eye: COMMON NORMALS: EOMs intact bilaterally Neck/C-Spine: COMMON NORMALS: full ROM and supple Resp: COMMON NORMALS: normal respiratory effort, No retractions and clear to auscultation bilaterally AUSCULTATION: clear to auscultation bilaterally Cardio: COMMON NORMALS: regular rate, regular rhythm, No gallops present (Cardio) and No murmurs present (Cardio) RATE: regular rate RHYTHM: r egular rhythm GI: COMMON NORMALS: Soft to palpation and non-tender PALPATION: Yes Soft to palpation Extremity: GENERAL: Yes normal exam except as noted Neuro: COMMON NORMALS: patient oriented x3 SENSORIUM/ORIENTATION: Yes alert Skin: COMMON NORMALS: no rashes or lesions noted GENERAL SKIN EXAM: no rashes or lesions noted Course 2 Vital Signs: Vital signs: Vital Signs Temperature 98 F 10/16/24 00:11 Pulse Rate 77 10/16/24 02:57 Respiratory Rate 18 10/16/24 02:57 Blood Pressure 135/76 10/16/24 02:57 Pulse Oximetry 97 10/16/24 02:57 Oxygen Delivery Me thod Room Air 10/16/24 02:57 MDM - Chest Pain Medical Decision Making 68-year-old female presented to the emergency department for evaluation of exertional chest pain. Her history is consistent with typical anginal chest pain. Past medical history of atherosclerotic disease. She did have a positive delta on her troponin which is concerning for NSTEMI. Patient started on heparin drip. Contacted Dr. Garcia who agreed that the patient needed to be admitted to the hospital. Upon further evaluation of the EKG she does have a new left bundle branch block. Subsequently the legal internship was contacted who agreed that the patient needs to go to Director Patient Accounting in the morning and recommended a nitro drip. Patient received a total of 4 nitro treatments between home and emergency department. Risk and benefits of admission were discussed with the patient and she was in agreement. Lab Data 10/16/24 00:16 10/16/24 00:16 Laboratory Results WBC 10.88 10^3/uL (3.29-11.43) 10/16/24 00:16 RBC 4.95 10^6/uL (3.85-5.65) 10/16/24 00:16 Hgb 11.20 g/dL (11.27-16.99) L 10/16/24 00:16 Hct 37.5 % (36-47) 10/16/24 00:16 MCV 75.8 fl (85-98) L 10/16/24 00:16 MCH 22.6 pg (27-33) L 10/16/24 00:16 MCHC 29.9 g/dL (30-55) L 10/16/24 00:16 RDW 17.0 % (12.1-15.1) H 10/16/24 00:16 Plt Count 273 10^3/cmm (157-399) 10/16/24 00:16 MPV 11.7 fL (7.4-10.4) H 10/16/24 00:16 Neut % (Auto) 57.5 % 10/16/24 00:16 Lymph % (Auto) 31.9 % 10/16/24 00:16 [place] % (Auto) 7.1 % 10/16/24 00:16 Eos % (Auto) 2.7 % 10/16/24 00:16 Baso % (Auto) 0.6 % 10/16/24 00:16 Neut # (Auto) 6.26 10^3/uL (1.8-7.7) 10/16/24 00:16 Lymph # (Auto) 3.5 10^3/uL (0.8-4.8) 10/16/24 00:16 [place] # (Auto) 0.8 10^3/uL (0.2-0.9) 10/16/24 00:16 Eos # (Auto) 0.3 10^3/uL (0.0-0.8) 10/16/24 00:16 Baso # (Auto) 0.1 10^3/uL (0.0-0.1) 10/16/24 00:16 Nucleated RBC % (auto) 0 % 10/16/24 00:16 Nucleated RBCs # 0.0 /100WBC 10/16/24 00:16 Sodium 140 mmol/L (136-145) 10/16/24 00:16 Potassium 3.5 mmol/L (3.5-5.1) 10/16/24 00:16 Chloride 97 mmol/L (98-107) L 10/16/24 00:16 Carbon Dioxide 29 mmol/L (22-29) 10/16/24 00:16 Anion Gap 17.5 (5-19) 10/16/24 00:16 BUN 15 mg/dL (8-23) 10/16/24 00:16 Creatinine 1.0 mg/dL (0.5-0.9) H 10/16/24 00:16 GFR Calculation 55.5 mL/min (90-130) L 10/16/24 00:16 Glucose 247 mg/dL (65-115) H 10/16/24 00:16 Calculated Osmolality 299 mOsm/kg (285-295) H 10/16/24 00:16 Calcium 9.9 mg/dL (8.5-10.5) 10/16/24 00:16 Total Bilirubin 0.2 mg/dL (0.15-1.2) 10/16/24 00:16 AST 22 U/L (0-32) 10/16/24 00:16 ALT 15 U/L (0-33) 10/16/24 00:16 Alkaline Phosphatase 90 U/L (35-105) 10/16/24 00:16 Troponin T Baseline 23 ng/L (0-10) H 10/16/24 00:16 Troponin T 120 Minute 26.74 ng/L (0-10) H 10/16/24 01:54 Delta Troponin T 3.74 ABS# (0-10) 10/16/24 01:54 Total Protein 7.3 g/dL (6.6-8.7) 10/16/24 00:16 Albumin 4.9 g/dL (3.5-5.2) 10/16/24 00:16 Globulin 2.4 g/dL (1.3-4.6) 10/16/24 00:16 All radiology interpretation(s) finalized by discharge Discharge Plan Discharge Patient Disposition: Admitted As Inpatient Clinical Impression: NSTEMI (non-ST elevated myocardial infarction) Condition: Stable Discharge Diet: Advance as tolerated Discharge Activity: Resume usual activity Coding Level of Care Code ED Machine Gunner for Loren Jones
[2024-10-16 02:19] LABS: Troponin 5 2HR 26.74 ng/L (0-10); Troponin 5 2HR Delta 3.74 ABS# (0-10)
--- NOTE | 2024-10-16 02:20 | PC.NURSE ---
Rounded on pt. Pt requested to walk to restroom. When pt returned from restroom, pt stated her CP had returned. EKG obtained. notified. Orders received.
[2024-10-16] MEDS: nitroglycerin 0.4 mg sublingual Tablet SUBLINGUAL (02:25)
--- NOTE | 2024-10-16 02:38 | P.HP_ITS ---
Providers/Chief Complaint 2 Primary Care Provider: Naty Esqueda APN Chief Complaint: CP History of Present Illness Heather Young is a 68 year old female with history of diabetes, established coronary disease history of 4 stents, latest was in May 2023 [facility] presented with chief complaint of chest pain, patient is stating that she has been experiencing chest discomfort on exertion for last 1 month, yesterday around 10 PM she started spearing seeing chest pain she describing that pressure-like sensation radiating towards her back and right arm, not associate with nausea vomiting but shortness of breath. No fever or diarrhea. Patient is compliant with her medication including Xarelto which she took at 6 PM yesterday. She is compliant with aspirin and Plavix. In the ER EKG showing new left bundle branch block, troponin 23 and 26, she is complaining of active chest pain started on heparin nitroglycerin drip, Blood pressure is 131/76 mmHg Complaining of active chest pain at the time of my evaluation she has received 4 nitroglycerin tablets already Nurse fixing to arrange nitroglycerin drip, I have reviewed this EKG with Dr. Talbot when I examined the patient in the ER Review of records revealed: She is being followed by a computational mathematician in the [facility] in [place].? She had several angiograms in the past? She had a coronary angiogram in 2012, 2014, 2016 and 2016.? She had had? PCI of the RCA and LAD in the past.? Most recent angiogram in 2016 revealed patent stents in the LAD and the RCA.? In 2019, she had stenting of both renal arteries at the [facility] in [place].? According the patient, while the physician was closing the femoral arteria puncture site, accidentally the artery got occluded and she ended up in staying in the hospital for? 5 weeks or so.? She almost lost her right leg.? She is currently having numbness of the right foot and also chronic pain.? In December 2020, she presented with pain and discoloration of the right leg.? She had extensive clots in the iliac and femoral arteries.? She underwent intervention of these at the [facility] She underwent cardiac angiogram per Dr. Robles on 10/20/22 which showed right coronary artery dominance, patent LAD which is relatively small. He is a 60% stenosis in proximal vessel just prior to initiation of stent in RCA which occupied middle third of the vessel and extends all the way around the acute margin. In the distal portion of the line of stents the vessel is occluded prior to its entry into PDA. Patient underwent balloon angioplasty of in-stent thrombosis. Post cardiac catheterization showed continue to have chest pain for which EKG was done which was concerning for recurrence of ST elevation IL hence she underwent cardiac angiogram again on 8 at night which at this time showed patent stent as per prior cardiac angiogram. Patient was transferred to ICU for further monitoring. Echocardiogram was done which showed an EF of 45% with grade 1 diastolic dysfunction, mildly increased LA size and severe diffuse hypokinesia of inferior lateral and lateral wall with dilated LV cavity. Review of Systems 2 Const: Denies: fever(s) Eyes: Denies: change in vision ENMT: Denies: throat pain Card: Reports: chest pain Resp: Reports: dyspnea GI: Denies: abdominal pain Medications/Allergies Home Medications Medication Instructions Recorded Confirmed Last Taken Type albuterol sulfate 90 mcg/actuation 2 puff inhalation Q4H PRN 10/19/22 10/23/22 Unknown History aerosol inhaler (ProAir HFA) Shortness Of Breath garxndnlco-wgxghmtpoiwdk-zpyuetzv 1 tab PO QID PRN Migraine Headache 10/19/22 10/23/22 Unknown History 50 mg-325 mg-40 mg tablet cholecalciferol (vitamin D3) 125 125 mcg PO QAM 10/19/22 10/23/22 Unknown History mcg (5,000 unit) tablet (Vitamin D3) empagliflozin 25 mg tablet 25 mg PO QAM 10/19/22 10/23/22 Unknown History (Jardiance) eszopiclone 3 mg tablet (Lunesta) 3 mg PO BEDTIME 10/19/22 10/23/22 Unknown History nateglinide 60 mg tablet 60 mg PO TID PRN blood sugar 10/19/22 10/23/22 Unknown History nitroglycerin 0.4 mg sublingual 0.4 mg sublingual Q5M PRN Chest 10/19/22 10/23/22 Unknown History tablet (Nitrostat) Pain oxycodone-acetaminophen 5 mg-325 1 tab PO Q8H PRN Pain 10/19/22 10/23/22 Unknown History mg tablet pantoprazole 40 mg tablet,delayed 40 mg PO QAM 10/19/22 10/23/22 Unknown History release potassium chloride 10 mEq 10 meq PO BEDTIME 10/19/22 10/23/22 Unknown History tablet,extended release rivaroxaban 2.5 mg tablet (Xarelto) 2.5 mg PO BID 10/19/22 10/23/22 10/18/22 06:00 History aspirin 81 mg tablet,delayed 81 mg PO DAILY #30 tabs 10/22/22 10/23/22 Unknown Rx release atorvastatin 40 mg tablet 80 mg (2 x 40 mg) PO BEDTIME #60 10/22/22 10/23/22 Unknown Rx tabs furosemide 40 mg tablet 20 mg (1/2 x 40 mg) PO DAILY@0800 10/22/22 10/23/22 Unknown Rx #30 tabs isosorbide mononitrate 30 mg 30 mg PO DAILY #30 tabs 10/22/22 10/23/22 Unknown Rx tablet,extended release 24 hr metoprolol tartrate 25 mg tablet 12.5 mg (1/2 x 25 mg) PO Q12H #30 10/22/22 10/23/22 Unknown Rx tabs sucralfate 100 mg/mL oral 1 g (10 mL) PO AC&BEDTIME #300 mL 10/22/22 10/23/22 Unknown Rx suspension Allergies Allergy/AdvReac Type Severity Reaction Status Date / Time amoxicillin [From Augmentin] Allergy Unknown Verified 10/31/22 09:38 clavulanic acid Allergy Unknown Verified 10/31/22 09:38 [From Augmentin] iron Allergy UNK Verified 10/31/22 09:38 lansoprazole [From Prevacid] Allergy UNK Verified 10/31/22 09:38 morphine Allergy ADR-Nausea Verified 10/31/22 09:38 PFSH Acute 2 PFSH: Medical History Implantable loop recorder present Re-entry ventricular arrhythmia Femoral artery occlusion, right Renal artery stenosis Compartment syndrome of lower extremity Migraine with aura and without status migrainosus Murmur Anemia Anxiety ASHD (arteriosclerotic heart disease) Hyperlipidemia Hypertension Insomnia PVC (premature ventricular contraction) Social History Alcohol intake: never Substance/Drug Use: never Marital status: Current gender identity: Female Vitals/I&O/Wt Last Vital Signs Temp 98 F 10/16/24 00:11 Pulse 74 10/16/24 02:21 Resp 19 H 10/16/24 02:21 BP 156/88 10/16/24 02:21 Pulse Ox 96 10/16/24 02:21 O2 Del Method Room Air 10/16/24 02:21 10/15/24 10/15/24 10/16/24 14:59 22:59 06:59 Intake Total 0 / 0 Balance 0 / 0 Weight last 48 hrs Weight 65.771 kg Physical Exam 2 Narrative: Active chest pain Hemodynamically stable Chest pain4/10 GCS 15 Nonfocal neuroexam S1, S2 Abdomen soft Patient wearing ankle brace left leg Currently on room air Data 10/16/24 00:16 10/16/24 00:16 A&P Assessment and plan (1) Hypertension: Qualifiers: Hypertension type: essential hypertension Qualified Code(s): I10 - Essential (primary) hypertension (2) Ischemic cardiomyopathy: (3) New onset left bundle branch block (LBBB): (4) Coronary artery disease: (5) Atrial fibrillation: Qualifiers: Atrial fibrillation type: persistent (not longstanding) Qualified Code(s): I48.19 - Other persistent atrial fibrillation (6) T2DM (type 2 diabetes mellitus): Plan New left bundle branch block Active chest pain Patient started on heparin drip along nitroglycerin drip EKG reviewed with Dr. Talbot who is planning for coronary angiogram 7 AM Will keep cardiology updated if her chest pain does not resolve with nitroglycerin drip Patient is stating that her last dose of Xarelto was 6 pm yesterday 1/3 She has been compliant with her medications Previous catheter report reviewed, noted in HPI N.p.o. for now Patient had received 4 nitroglycerin intensity of pain has decreased I will load her with aspirin and Plavix Patient has history of multiple stents, patient endorsing 4 stents, multiple coronary angiograms, history of renal artery stenosis status post stent Follows up with cardiology in [facility] Will request records Hypertension: Hold several mononitrate, currently on nitroglycerin drip CHF with reduced EF: Diastolic dysfunction: Clinically does not look fluid overloaded, hold off on diuretics Type II diabetic: Will use sliding scale Check A1c level Accu-Cheks every 4 hours N.p.o. Full code DuoNeb treatment on as-needed basis every 4-6 hours Case discussed with the ER doctor and Dr. Talbot Attestations 2 Medical Necessity Statement*: More than 2 midnights anticipated Diagnoses Hypertension I10 Hypertension type: essential hypertension Ischemic cardiomyopathy I25.5 New onset left bundle branch block (LBBB) I44.7 Coronary artery disease I25.10 Persistent atrial fibrillation I48.19 Atrial fibrillation type: persistent (not longstanding) T2DM (type 2 diabetes mellitus) E11.9
--- NOTE | 2024-10-16 02:39 | ECG_ITS ---
[facility] Test Date: 2024-10-16 Pat Name: Heather Young Department: Room: Gender: Female Rn Surgery Icu: : 1955 Requested By: Heriberot Richter Order Number: [id number] Gee MD: Eboni Aguirre M.D. Measurements Intervals [place] Rate: 89 P: 67 [place]: 182 QRS: -13 QRSD: 160 T: 121 QT: 410 QTc: 499 Interpretive Statements SINUS RHYTHM LEFT BUNDLE BRANCH BLOCK [120+ ms QRS DURATION, 80+ ms Q/S IN V1/V2, 85+ ms R IN I/aVL/V5/V6] Compared to ECG 10/21/2022 10:24:05 Left bundle-branch block now present T-wave abnormality no longer present Possible ischemia no longer present Electronically Signed On 10-16-2024 21:35:55 OUTREACH CLINICIAN by Eboni Aguirre M.D. [id number]
[2024-10-16 02:50] LABS: Basophils # 0.1 10^3/uL (0.0-0.1); Basophils % 0.6 %; Eosinophils # 0.3 10^3/uL (0.0-0.8); Eosinophils % 2.7 %; Hematocrit 37.5 % (36-47); Lymphocytes # 3.5 10^3/uL (0.8-4.8); Lymphocytes % 31.9 %; Mean Corpuscular HGB Conc 29.9 g/dL (30-55); Mean Corpuscular Hemoglobin 22.6 pg (27-33); Mean Corpuscular Volume 75.8 fl (85-98); Mean Platelet Volume 11.7 fL (7.4-10.4); Monocytes # 0.8 10^3/uL (0.2-0.9); Monocytes % 7.1 %; Neutrophils # 6.26 10^3/uL (1.8-7.7); Neutrophils % 57.5 %; Nucleated Red Blood Cells % 0 %; Platelet Count 273 10^3/cmm (157-399); Red Blood Count 4.95 10^6/uL (3.85-5.65); White Blood Count 10.88 10^3/uL (3.29-11.43)
[2024-10-16] MEDS: heparin 5,000 unit/mL INJ 1 mL 4000 UNIT IVP (02:59)
[2024-10-16] MEDS: heparin drip 25,000 UNIT/500 ML PREMIX 18.42 UNIT IV (03:01)
[2024-10-16 03:08] LABS: Alanine Aminotransferase 15 U/L (0-33); Albumin Level 4.9 g/dL (3.5-5.2); Alkaline Phosphatase 90 U/L (35-105); Anion Gap 17.5 (5-19); Aspartate Amino Transferase 22 U/L (0-32); Blood Urea Nitrogen 15 mg/dL (8-23); Calcium 9.9 mg/dL (8.5-10.5); Carbon Dioxide 29 mmol/L (22-29); Chloride 97 mmol/L (98-107); Creatinine Clr Calc Pharmacy 51.6552; Globulin 2.4 g/dL (1.3-4.6); Glomerular Filtration Rate 55.5 mL/min (90-130); Glucose 247 mg/dL (65-115); Osmolality Calculated 299 mOsm/kg (285-295); Potassium 3.5 mmol/L (3.5-5.1); Sodium 140 mmol/L (136-145); Total Bilirubin 0.2 mg/dL (0.15-1.2); Total Protein 7.3 g/dL (6.6-8.7)
[2024-10-16 03:15] LABS: NT Pro B Type Natriuretic Pept 937 pg/mL (0-125)
[2024-10-16] MEDS: nitroglycerin drip 50 MG/250 ML PREMIX IV (03:28)
--- NOTE | 2024-10-16 04:01 | PC.NURSE ---
Pt initially had order for dilaudid for chest pain. MD at bedside stated to hold dilaudid and start nitroglycerin. This was done. Nitroglycerin gtt was effective for chest pain, but pt states she has chronic right leg pain from nerve damage from previous surgical complications. Pt states she takes 5/325mg oxycodone every 8 hours for pain. Pt requesting pain med for leg pain. MD notified. Order to give the previous ordered dose of dilaudid at this time.
[2024-10-16] MEDS: HYDROmorphone 1 mg/mL INJ 1 mL 0.5 MG IVP (04:19)
[2024-10-16] MEDS: ondansetron 2 mg/ML SDV 2 mL 4 MG IVP ×2 (04:19→21:58)
[2024-10-16] MEDS: aspirin 325 mg EC Tablet PO (04:20)
[2024-10-16] MEDS: clopidogrel 300 mg Tablet PO (04:20)
--- NOTE | 2024-10-16 05:02 | USCV_ITS ---
Heather Young Age: 68 Gender: F : 1955 Exam Date: 10/16/2024 12:07 Ordering Phys: Bety Garcia MD Technologist: Jeyson Alexandre Exam Location: [facility] [place] Indication: lbbb BP: 118 / 57 HR: 70 Rhythm: Sinus Technical Quality: Adequate MEASUREMENTS (Male / Female) Normal Values 2D ECHO LV Diastolic Diameter PLAX 6.1 cm 4.2 - 5.9 / 3.9 - 5.3 cm IVS Diastolic Thickness 1.1 cm 0.6 - 1.0 / 0.6 - 0.9 cm IVS Systolic Thickness 1.4 cm LVPW Diastolic Thickness 1.4 cm 0.6 - 1.0 / 0.6 - 0.9 cm LVPW Systolic Thickness 1.4 cm LVOT Diameter 2.1 cm LV Ejection Fraction 2D Teich 35.7 % LV Ejection Fraction MOD 4C 17.0 % LV Ejection Fraction MOD 2C 27.4 % LV Ejection Fraction 2C AL 26.8 % LA Diameter 4.3 cm RA Systolic Volume 4C AL 48.3 ml RA Systolic Volume 4C MOD 47.0 ml LA Sys Volume AL 67.6 cm cubed LA Sys Volume Index AL 38.4 cm cubed/m squared Aorta at Sinotubular Diameter 1.6 cm IVC Diameter 1.5 cm M-MODE LA Ao Ratio MM 1.4 AV Cusp Separation MM 2.2 cm DOPPLER AV Peak Velocity 189.0 cm/s LVOT Peak Velocity 77.0 cm/s AV Area Cont Eq vti 1.2 cm squared AV Area Cont Eq pk 1.4 cm squared MV Peak Velocity 134.0 cm/s MV Area PHT 5.3 cm squared Mitral E to A Ratio 1.4 TR Peak Velocity 382.0 cm/s TR Peak Gradient 58.4 mmHg TR Mean Velocity 260.0 cm/s TR Mean Gradient 32.0 mmHg TR Velocity Time Integral 116.2 cm PV Peak Velocity 71.3 cm/s RV Ejection Time 0.3 s FINDINGS Left Ventricle Moderately dilated LV cavity. Severe diffuse hypokinesia of the left ventricle with an ejection fraction of 25%.Grade III/IV diastolic dysfunction (restrictive filling pattern), severely elevated filling pressures. Right Ventricle The right ventricle is normal in size and function. Right Atrium Normal right atrial size Left Atrium Moderately increased left atrial size. Mitral Valve Mildly thickened mitral valve. Mild mitral valve regurgitation. Aortic Valve Minimally thickened and nonstenotic Tricuspid Valve Trace to mild tricuspid valve regurgitation. Pulmonic Valve Trace pulmonary valve regurgitation. Pericardium No pericardial effusion. Aorta Normal ascending aorta dimension. IVC Normal inferior vena cava. CONCLUSIONS Severe diffuse hypokinesia of the left ventricle with an ejection fraction of 25%.Grade III/IV diastolic dysfunction (restrictive filling pattern), severely elevated filling pressures. Moderately dilated LV cavity. Moderately increased left atrial size. Normal right atrial size. Minimally thickened aortic and mitral valves. Mild mitral valve regurgitation. Trace to mild tricuspid valve regurgitation. Estimated pulmonary artery peak systolic pressure 61 mmHg (moderate pulmonary hypertension) There is no pericardial effusion. There are no intracardiac masses. Compared to the study from 10/19/2022, there is a significant drop in the LV ejection fraction from 45% to 25% Dr Eboni Aguirre MD FAC (Electronically Signed) Final Date: 16 October 2024 19:41 S
[2024-10-16 05:27] LABS: Estmated Average Glucose 189; Hemoglobin A1C 8.2 % (4.0-6.0)
[2024-10-16 05:36] LABS: Bilirubin Urine Negative (Negative); Blood Urine Trace (Negative); Glucose Urine UA 3+ (Normal); Ketones Urine Negative (Negative); Leukocyte Esterase Urine Negative (Negative); Nitrate Urine Negative (Negative); Protein Urine Trace (Negative); Urine Appearance Clear (CLEAR); Urine Color Yellow (Yellow); Urobilinogen Urine 0.2 mg/dL (Negative); pH Urine 6.5 (5-7)
[2024-10-16 05:41] LABS: Add Urine Microscopic? YES; Bacteria Urine None Seen /hpf; Hyaline Casts Urine 0-4 /lpf; RBC Urine 0-2 /hpf (0-2); Squamous Epithelial Cell Urine 0-5 /hpf (0-5); WBC Urine 0-5 /hpf (0-5)
[2024-10-16 05:43] LABS: Specific Gravity, Urine 1.034 (1.005-1.030)
[2024-10-16 06:33] LABS: Troponin 5 6HR 33.54 ng/L (0-10); Troponin 5 6HR Delta 10.54 ng/L (0-12)
--- NOTE | 2024-10-16 06:39 | ECG_ITS ---
[facility]: 2024-10-16 Pat Name: Heather Young Department: Room: ICU10 Gender: Female Sharepoint Administrator: : 1955 Requested By: Heriberto Richter Order Number: [id number] Gee MD: Eboni Aguirre M.D. Measurements Intervals [place] Rate: 60 P: 60 [place]: 196 QRS: 34 QRSD: 163 T: -61 QT: 502 QTc: 504 Interpretive Statements SINUS RHYTHM LEFT BUNDLE BRANCH BLOCK [120+ ms QRS DURATION, 80+ ms Q/S IN V1/V2, 85+ ms R IN I/aVL/V5/V6] Compared to ECG 10/16/2024 02:09:19 No significant changes Electronically Signed On 10-16-2024 21:36:00 BOATING SAFETY OFFICER by Eboni Aguirre M.D. [id number]
--- NOTE | 2024-10-16 07:43 | P.CONIM_ITS ---
Providers/Reason For Consult 2 Consulting Physician/Specialty*: Con Talbot MD/ Cardiology Reason for Consult*: NSTEMI Requesting Physician: Dr Garcia Attending Physician: Bety Garcia MD Primary Care Provider: Naty Esqueda APN History of Present Illness History of Present Illness Heather Young is a 68 year old female with past medical history of multiple PCI's, hyperlipidemia who presented to hospital with worsening chest pain for several weeks. Last night it started substernal radiating to the arms and back. Was not resolved with nitros so she decided to come to the hospital. Per patient even minimal exertion worsens the chest pain. Her initial troponin was 23 that trended up to 33 at 6 hours. EKG has a left bundle branch block that is new along with non specific st t wave changes in inferior and lateral leads. Review of Systems 2 Const: Denies: fever(s) Eyes: Denies: change in vision ENMT: Denies: throat pain Card: Reports: chest pain Resp: Reports: dyspnea GI: Denies: abdominal pain Medications/Allergies Home Medications Medication Instructions Recorded Confirmed Last Taken Type albuterol sulfate 90 mcg/actuation 2 puff inhalation Q4H PRN 10/19/22 10/23/22 Unknown History aerosol inhaler (ProAir HFA) Shortness Of Breath olelxtruxl-roidnasdcdsef-oltwcptr 1 tab PO QID PRN Migraine Headache 10/19/22 10/23/22 Unknown History 50 mg-325 mg-40 mg tablet cholecalciferol (vitamin D3) 125 125 mcg PO QAM 10/19/22 10/23/22 Unknown History mcg (5,000 unit) tablet (Vitamin D3) empagliflozin 25 mg tablet 25 mg PO QAM 10/19/22 10/23/22 Unknown History (Jardiance) eszopiclone 3 mg tablet (Lunesta) 3 mg PO BEDTIME 10/19/22 10/23/22 Unknown History nateglinide 60 mg tablet 60 mg PO TID PRN blood sugar 10/19/22 10/23/22 Unknown History nitroglycerin 0.4 mg sublingual 0.4 mg sublingual Q5M PRN Chest 10/19/22 10/23/22 Unknown History tablet (Nitrostat) Pain oxycodone-acetaminophen 5 mg-325 1 tab PO Q8H PRN Pain 10/19/22 10/23/22 Unknown History mg tablet pantoprazole 40 mg tablet,delayed 40 mg PO QAM 10/19/22 10/23/22 Unknown History release potassium chloride 10 mEq 10 meq PO BEDTIME 10/19/22 10/23/22 Unknown History tablet,extended release rivaroxaban 2.5 mg tablet (Xarelto) 2.5 mg PO BID 10/19/22 10/23/22 10/18/22 06:00 History aspirin 81 mg tablet,delayed 81 mg PO DAILY #30 tabs 10/22/22 10/23/22 Unknown Rx release atorvastatin 40 mg tablet 80 mg (2 x 40 mg) PO BEDTIME #60 10/22/22 10/23/22 Unknown Rx tabs furosemide 40 mg tablet 20 mg (1/2 x 40 mg) PO DAILY@0800 10/22/22 10/23/22 Unknown Rx #30 tabs isosorbide mononitrate 30 mg 30 mg PO DAILY #30 tabs 10/22/22 10/23/22 Unknown Rx tablet,extended release 24 hr metoprolol tartrate 25 mg tablet 12.5 mg (1/2 x 25 mg) PO Q12H #30 10/22/22 10/23/22 Unknown Rx tabs sucralfate 100 mg/mL oral 1 g (10 mL) PO AC&BEDTIME #300 mL 10/22/22 10/23/22 Unknown Rx suspension Allergies Allergy/AdvReac Type Severity Reaction Status Date / Time amoxicillin [From Augmentin] Allergy Unknown Verified 10/31/22 09:38 clavulanic acid Allergy Unknown Verified 10/31/22 09:38 [From Augmentin] iron Allergy UNK Verified 10/31/22 09:38 lansoprazole [From Prevacid] Allergy UNK Verified 10/31/22 09:38 morphine Allergy ADR-Nausea Verified 10/31/22 09:38 Current Medications Generic Name Dose Route Start Last Admin Trade Name Freq PRN Reason Stop Dose Admin Heparin Sodium/Sodium Chloride 25,000 unit in 500 mls @ 0 mls/hr 10/16/24 03:00 10/16/24 03:01 Heparin Drip IV 14 unit/kg/hr CONT DEMETRIS 18.42 mls/hr Administration Protocol Per Protocol Nitroglycerin/Dextrose 50 mg in 250 mls @ 0 mls/hr 10/16/24 03:15 10/16/24 03:28 Nitroglycerin Drip IV 10 mcg/min .Q0M DEMETRIS 3 mls/hr Administration Protocol Per Protocol PFSH Acute 2 PFSH: Medical History Implantable loop recorder present Re-entry ventricular arrhythmia Femoral artery occlusion, right Renal artery stenosis Compartment syndrome of lower extremity Migraine with aura and without status migrainosus Murmur Anemia Anxiety ASHD (arteriosclerotic heart disease) Hyperlipidemia Hypertension Insomnia PVC (premature ventricular contraction) Social History Alcohol intake: never Substance/Drug Use: never Marital status: Current gender identity: Female Vitals/I&O/Wt Last Vital Signs Temp 98 F 10/16/24 00:11 Pulse 62 10/16/24 06:00 Resp 21 H 10/16/24 04:30 BP 137/70 10/16/24 04:30 Pulse Ox 97 10/16/24 04:30 O2 Del Method Room Air 10/16/24 05:07 10/15/24 10/16/24 10/16/24 22:59 06:59 14:59 Intake Total 0 / 0 Balance 0 / 0 Weight last 48 hrs Weight 146 lb 9 oz Weight 145 lb Physical Exam 2 Narrative: GENERAL: Patient is alert, awake and oriented x3. HEART: Regular S1 and S2. No murmur, rub or gallop. LUNGS: Clear to auscultate bilaterally. CENTRAL NERVOUS SYSTEM: Grossly nonfocal. EXTREMITIES: Lower extremities with out edema bilaterally. Data 10/16/24 00:16 10/16/24 00:16 A&P Assessment and plan (1) NSTEMI (non-ST elevated myocardial infarction): (2) Ischemic cardiomyopathy: (3) Congestive heart failure: (4) New onset left bundle branch block (LBBB): (5) T2DM (type 2 diabetes mellitus): (6) Hypertension: Qualifiers: Hypertension type: essential hypertension Qualified Code(s): I10 - Essential (primary) hypertension (7) Hyperlipidemia: (8) Coronary artery disease: Plan Patient presented with non-ST elevation NM. Symptoms have been worsening for few weeks however last night and persisted. Was put on a nitro drip to control chest pain. Will proceed with catheter with possible PCI. Proceed with the procedure were discussed. Loaded with aspirin, Plavix. Ordered heparin drip. Takes Xarelto for PAD. 2.5 mg twice daily. ECHO ordered Thank you for involving us with care of this patient. We will continue to follow. Please call with questions. Consult Attestations 2 Medical Necessity Statement: Care expected to cross 2 midnights. Coding Level of Care Code Acute Code for [facility] Diagnoses NSTEMI (non-ST elevated myocardial infarction) I21.4 Ischemic cardiomyopathy I25.5 Congestive heart failure I50.9 New onset left bundle branch block (LBBB) I44.7 T2DM (type 2 diabetes mellitus) E11.9 Hypertension I10 Hypertension type: essential hypertension Hyperlipidemia E78.5 Coronary artery disease I25.10
--- NOTE | 2024-10-16 07:55 | XACV_ITS ---
Exam Room: [facility] Ht: 163 cm Wt: 68 kg BSA: 1.76 m2 Gender: Female : 1955 Any Known Allergies: Morphine Exam Priority: Routine Indication(s): - Non-ST elevation LA Procedure(s): Procedure Description: Diagnostic procedure Procedure Description: PCI procedure Procedure Description: Drug Eluting Coronary Stent Procedure Description: PTCA Procedure Description: Miscellaneous Procedure Description: ACT Procedure Description: Coronary Angiography Diagnostic Cath Status: Urgent Diagnostic Findings * Left Main has no significant disease. * Left Anterior Descending has patent prior proximal stent.Mild luminal irregularities. * Circumflex is a small sized vessel that is diffusely diseased. * Patent proximal and mid to distal prior stents. There is a gap between the stents where patient now has a significant stenosis. Mid Right Coronary Artery: Severe 70-80% stenosis, [place]: 3 flow. * Coronary angiography shows right dominance. PCI Status: Urgent PCI Indication: NSTE - ACS Interventional Findings * Mid Right Coronary Artery: 70-80% stenosis treated with a MDT NC EUPHORA RX [id number] BALLOON, MDT R ALINA 3.0X15 JUAN, and MDT NC EUPHORA RX [id number] BALLOON. * Procedure detail: We engaged the RCA with JR 4 guide catheter. IV heparin was administered to maintain anticoagulation. Runthrough wire was used to cross the stenosis and was placed in distal vessel. We predilated the vessel with 3.0x12 mm NC balloon. This was followed by placement of 3.0x15 mm Resolute alina JUAN. We then post dilated the stent with a 3.5x12mm NC balloon. At this time we proceeded with final angiogram that showed excellent stent expansion, no residual stenosis and [place] 3 flow. Guidewire and guide catheter were removed. Patient left the slab miller operator in a stable condition. Conclusions 1. Severe mid RCA stenosis s/p PCI with 1 stent. 2. Mid Right Coronary Artery was treated with a Balloon, Drug Eluting Stent, and Balloon. Recommendations * Dual antiplatelet therapy with aspirin and plavix. * High intensity statin therapy. * Outpatient cardiology follow up in 2 weeks. Interventional RX Recommendation: PCI w/o planned CABG Diagnostic RX Recommendation: PCI w/o planned CABG Anticoagulation: Heparin Pressures Phase:Rest AO : 105 / 60 ( 80 ) @ 9:14:00 AM 118 / 64 ( 87 ) @ 9:21:00 AM 136 / 64 ( 93 ) @ 9:30:00 AM Clinical Evaluation EBL: 5mL-10mL Procedural Details Procedure Consent Obtained. Pre-Procedure Time Out. Identified patient by full name and date of as verbalized by the patient/guarantor. Does the consent match the physician's order: Yes. Accurate & Complete Informed Consent: Yes. Inpatient/Outpatient History & Physical on Chart: Yes. If H&P is completed, is and addenduem needed: No. Visualize and Verify Site with Patient/Guarantor: N/A. Relevant Radiology Images available: Yes. The risks, benefits, and alternatives of sedation and/or procedure were discussed by physician. The patient agrees to continue. Procedure started. [facility] Clinical Fraility Score: 4: Vulnerable. Chucking Lathe Operator Indications: ACS > 24 hours/NSTEMI. Chest Pain Symptom Assessment: Typical Angina Symptoms. Cardiovascular Instability: no. Correct patient, site and procedure confirmed by cath team. PERRLA. Strong, equal hand watch technician bilaterally. Lungs clear x 5 lobes. IV Site on Arrival: 20 gauge in the left anticubital. IV Fluids: 0.9% NaCl at KVO. 0 mL infused prior to slab miller operator. Pre Procedural Pulses: bilateral dorsalis pedis was Doppled. Pre Procedural Pulses: bilateral posterior tibial was Doppled. Oxygen started at 2liters/min via nasal canula. bilateral groins was prepped with chloroprep then draped in the usual sterile fashion. Physician notified. Baseline sample Acquired. HR: 74 BPM. Patient's family unavailable. Equipment: 6F - Femoral. Cardiac Cath Pack. ACIST Manifold Kit Model BT 2000. Heparinized Saline (2 units/mL), 1000 mL bag. Kit, Micropuncture. Physician arrived. Physician scrubbed in. Immediate Pre-Procedure Time Out. Correct Patient: Yes; Correct Procedure: Yes; Correct Site: Yes; Correct Patient Position: Yes; Correct Supplies: Yes; Dried Flammable Prep: Yes; Blood Products Available: N/A;. Lidocaine 1% infiltrated to the left groin. Arterial access obtained with micropuncture set. A 5 [place] citizen JL4 catheter in over the standard J wire. Multiple views taken of left coronary artery. Catheter removed over the standard J wire. A 5 [place] citizen JR4 catheter in over the standard J wire. Multiple views taken of right coronary artery. Catheter removed over the standard J wire. ACT drawn. Results 194 seconds. Therapeutic limits - pre-heparin administration 90-150 seconds and monitoring heparin during a vascular procedure >250 seconds. 6 [place] citizen JR 4 guide catheter was inserted over the wire. Runthrough guidewire was advanced through the guide catheter to lesion in the mid RCA. Inflation number : 1 A MDT NC EUPHORA RX [id number] BALLOON was prepped and advanced across the Mid RCA , then inflated to 12 PEYTON for 0:16 seconds. Balloon out. Inflation Number : 2 A MDT R ALINA 3.0X15 JUAN -Lot Number# [id number] was prepped and advanced across the Mid RCA. The stent was deployed at 12 PEYTON for 0:19 seconds. Exp. . Stent balloon out over wire. Inflation number : 3 A MDT NC EUPHORA RX [id number] BALLOON was prepped and advanced across the Mid RCA , then inflated to 18 PEYTON for 0:12 seconds. Inflation number: 4 The MDT NC EUPHORA RX [id number] BALLOON was reinflated across the Mid RCA, to 20 PEYTON for 0:09 seconds. Inflation number: 5 The MDT NC EUPHORA RX [id number] BALLOON was reinflated across the Mid RCA, to 20 PEYTON for 0:06 seconds. Balloon out. Results checked. Wire out. ACT drawn. Results Out of range HI. Will redraw. Guide catheter out. A Left femoral angiogram was performed to determine safe placement of closure device. A Suture was successful obtaining hemostatsis at the Left Femoral artery insertion site. Sheath(s) sutured into position with 2-0 silk and sterile 4x4's and Op-site applied over the site. No oozing or signs and symptoms of hematoma noted. Arterial sheath flushed and connected to tranducer and pressure bag with heparinized saline. Post Procedure: Pulses reassessed and unchanged. PERRLA. Strong, equal hand watch technician bilaterally. No VTE prophylaxis required. PCI Indication: NSTE. Post-op diagnosis: PCI of the Mid RCA with one JUAN. Complications: none. Estimated blood loss: 5mL-10mL. Responsiveness - Normal response to verbal stimuli; alert and oriented, PERRLA. Airway - Unaffected, no intervention required; spontaneous ventilation. Circulation: W/N/L, pulses unchanged. Nausea/Vomiting: No. Medication's Wasted: Lidocaine 1% = 10 mL. ACT drawn. Results seconds. Therapeutic limits - pre-heparin administration 90-150 seconds and monitoring heparin during a vascular procedure >250 seconds. Medication's Wasted: Other = Versed 1 mg. Medication's Wasted: Other = Fentanyl 50 mcg. Total IV fluids: [address] Talbot scrubbed out. Procedure completed. Patient transferred by bed to ICU. Vital chart was stopped. Access Site Site: Left Femoral artery Sheath Size: 6 Fr Hemostasis Method: Suture Hemostasis Success: Successful Procedure Medications Start: 8:54 AM Stop: 8:54 AM Medication: Benadryl Amount: 25 mg Route: I.V. Start: 8:54 AM Stop: 8:54 AM Medication: Zofran (ondansetron) Amount: 4 mg Start: 9:00 AM Stop: 9:00 AM Medication: Versed Amount: 1 mg Route: I.V. Start: 9:01 AM Stop: 9:01 AM Medication: Fentanyl Amount: 25 mcg Route: I.V. Start: 9:19 AM Stop: 9:19 AM Medication: Heparin Amount: 3000 units Route: I.V. Start: 9:24 AM Stop: 9:24 AM Medication: Heparin Amount: 1000 units Route: I.V. Start: 9:32 AM Stop: 9:32 AM Medication: Fentanyl Amount: 25 mcg Route: I.V. Start: 9:37 AM Stop: 9:37 AM Medication: Plavix Amount: 300 mg Route: P.O. I, the attending physician, have reviewed and verified all procedure medications. Yes, all medications given per verbal order History/Risk Factors Hypertension: Yes Dyslipidemia: Yes Peripheral Arterial Disease (PAD): No Myocardial Infarction (LA): No Obesity: No Renal Disease: No Tobacco Use: Never Prior Interventions PCI: Yes CABG: No Valve Surgery: No Date of PCI: 10/18/2022 Report Signatures Finalized by Con Talbot MD on 10/17/2024 11:53 AM
[2024-10-16] MEDS: aspirin 81 mg EC Tablet PO (08:32)
[2024-10-16] MEDS: pantoprazole 40 mg SDV IVP ×2 (08:32→17:14)
--- NOTE | 2024-10-16 08:43 | PC.NURSE ---
Patient in care of lab manager staff at this time.
--- NOTE | 2024-10-16 08:56 | W.PM.OPSUD ---
Surgery/Procedure H&P Update DATE OF PROCEDURE: October 16, 2024 DATE H&P PERFORMED: 10/16/24 H&P UPDATE INFORMATION: I have reviewed H&P completed within last 30 days, I have examined patient prior to procedure and No changes to prior documentation PREOP DIAGNOSIS: Unstable angina/ NSTEMI PRIMARY INDICATION FOR PROCEDURE: Unstable angina/ NSTEMI PLANNED PROCEDURE: Left heart cath with possible percutaneous coronary intervention PATIENT REASSESSED PRIOR TO SEDATION, WITH NO CHANGE NOTED: Yes PHYSICAL EXAM: alert, oriented x 3, clear to auscultation bilaterally and regular rate & rhythm AIRWAY EVAL/ANESTHESIA PLAN: normal airway, ASA III, Local Anesthesia, Risks, benefits & alternatives of sedation and/or procedure discussed and Patient agrees to continue as planned ADDITIONAL INFORMATION: Moderate sedation
--- NOTE | 2024-10-16 09:51 | P.PCN_ITS ---
Procedure Note: Date of procedure: 10/16/24 Pre-procedure diagnosis: NSTEMI Post-procedure diagnosis: other (Severe mid RCA stenosis s/p PCI with 1 stent) Procedure: Left heart cath with PCI: Severe mid RCA stenosis s/p successful revascul arization with 1 stent Dual antiplatelet therapy with aspirin and plavix High intensity statin therapy Transfer back to ICU. Can discontinue nitro gtt. Coding Level of Care Code Acute Code for [facility]
--- NOTE | 2024-10-16 09:58 | PC.NURSE ---
Patient back from dental laboratory supervisor, sheath in place.
[2024-10-16] MEDS: sodium chloride 0.9% 1,000 ML 50 ML IV (10:10)
[2024-10-16 12:37] LABS: Partial Thromboplastin Time 71.1 SECONDS (23.9-36.7)
[2024-10-16] MEDS: HYDROmorphone 1 mg/mL INJ 1 mL 0.4 MG IVP ×3 (13:29→22:02)
--- NOTE | 2024-10-16 14:00 | PM.MISC ---
Miscellaneous Note Note: Morning status post cath. Resting comfortably in bed. States chest pain has resolved. Catheter insertion site left groin. Mildly tender to palpation. Vital stable.
[2024-10-16 14:17] LABS: Partial Thromboplastin Time 34.5 SECONDS (23.9-36.7)
--- NOTE | 2024-10-16 19:31 | PC.NURSE ---
Uneventful shift, Stent placed in laborer/key man, sheath removed and closure device placed at bedside by Dr. Talbot. No hemotoma formed, pulses remained well intact. Patient reports pain in right foot, chronic, requires dilaudid which reduces pain to 2.
[2024-10-16] MEDS: atorvastatin 40 mg Tablet 80 MG PO (20:36)
--- NOTE | 2024-10-16 23:00 | PC.NURSE ---
Atorvastatin At around 2200, patient complaining of nausea. Patient then asked, Was that atorvastatin that I took earlier? Education provided at time of administration of medication and once again when asked that it was 80 mg atorvastatin that was administered. Patient then said, I should've paid better attention earlier. Atorvastatin makes me sick, I take pravastatin at home. When asked how atorvastatin makes her sick, patient stated that it makes her nauseous and have muscle aches. Nahid PRN administered and Dr. Garcia notified. Order received to discontinue atorvastatin.
[2024-10-17] VITALS (30 sets, daily range): BP systolic 106–154; BP diastolic 52–91; PULSE 64–99; RESP 12–24; TEMP 36.6–37.1; O2SAT 87–97; BMI 25.4
[2024-10-17] MEDS: HYDROmorphone 1 mg/mL INJ 1 mL 0.4 MG IVP ×2 (02:57→08:41)
[2024-10-17] MEDS: sodium chloride 0.9% 1,000 ML 50 ML IV (03:55)
--- NOTE | 2024-10-17 06:20 | PM.PN ---
Vitals/I&O/Wt Last Vital Signs Temp 98.7 F 10/17/24 03:30 Pulse 96 10/17/24 06:02 Resp 16 10/17/24 06:00 BP 106/61 10/17/24 05:00 Pulse Ox 89 L 10/17/24 06:00 O2 Del Method Room Air 10/17/24 03:30 10/16/24 10/16/24 10/17/24 14:59 22:59 06:59 Intake Total 348.233 / 348.233 200 / 393.435 3852 / 2458.233 Balance 348.233 / 348.233 200 / 512.557 5990 / 2458.233 Weight last 48 hrs Weight 67.358 kg Weight 67.784 kg Weight 66.48 kg Weight 65.771 kg Data 10/16/24 00:16 10/16/24 00:16 Coding Level of Care Code Acute Code for [facility]
[2024-10-17 06:23] LABS: Basophils % 0.3 %; Eosinophils # 0.2 10^3/uL (0.0-0.8); Eosinophils % 2.4 %; Hematocrit 32.8 % (36-47); Lymphocytes # 1.3 10^3/uL (0.8-4.8); Mean Corpuscular Hemoglobin 22.4 pg (27-33); Mean Corpuscular Volume 77.2 fl (85-98); Mean Platelet Volume 11.1 fL (7.4-10.4); Monocytes # 0.6 10^3/uL (0.2-0.9); Neutrophils # 7.63 10^3/uL (1.8-7.7); Neutrophils % 77.7 %; Nucleated Red Blood Cells % 0 %; Platelet Count 181 10^3/cmm (157-399); Red Blood Count 4.25 10^6/uL (3.85-5.65); Red Cell Distribution Width 17.2 % (12.1-15.1); White Blood Count 9.83 10^3/uL (3.29-11.43)
[2024-10-17 06:52] LABS: Anion Gap 13.3 (5-19); Blood Urea Nitrogen 13 mg/dL (8-23); Calcium 9.2 mg/dL (8.5-10.5); Carbon Dioxide 24 mmol/L (22-29); Chloride 105 mmol/L (98-107); Creatinine Clr Calc Pharmacy 58.0109; Glomerular Filtration Rate 62.6 mL/min (90-130); Glucose 131 mg/dL (65-115); Magnesium 2.1 mg/dL (1.7-2.3); Osmolality Calculated 288 mOsm/kg (285-295); Potassium 4.3 mmol/L (3.5-5.1); Sodium 138 mmol/L (136-145)
[2024-10-17] MEDS: clopidogrel 75 mg Tablet PO (08:36)
[2024-10-17] MEDS: pantoprazole 40 mg SDV IVP (08:36)
[2024-10-17] MEDS: aspirin 81 mg EC Tablet PO (08:36)
--- NOTE | 2024-10-17 10:00 | P.PN_ITS ---
Subjective 2 Subjective: Patient is doing well. no chest pain or shortness of breath. Had PCI of mid RCA yesterday. Vitals/I&O/Wt Last Vital Signs Temp 97.9 F 10/17/24 08:30 Pulse 75 10/17/24 08:30 Resp 14 10/17/24 08:41 BP 119/62 10/17/24 08:30 Pulse Ox 95 10/17/24 08:41 O2 Del Method Room Air 10/17/24 08:30 10/16/24 10/17/24 10/17/24 22:59 06:59 14:59 Intake Total 200 / 509.396 6964 / 2458.233 222 / 222 Balance 200 / 624.679 8202 / 2458.233 222 / 222 Weight last 48 hrs Weight 148 lb 8 oz Weight 149 lb 7 oz Weight 146 lb 9 oz Weight 145 lb Physical Exam 2 Narrative: GENERAL: Patient is alert, awake and oriented x3. HEART: Regular S1 and S2. No murmur, rub or gallop. LUNGS: Clear to auscultate bilaterally. CENTRAL NERVOUS SYSTEM: Grossly nonfocal. EXTREMITIES: Lower extremities with out edema bilaterally. Data 10/17/24 06:11 10/17/24 06:11 A&P Assessment and plan (1) NSTEMI (non-ST elevated myocardial infarction): (2) Ischemic cardiomyopathy: (3) Congestive heart failure: (4) New onset left bundle branch block (LBBB): (5) T2DM (type 2 diabetes mellitus): (6) Hypertension: Qualifiers: Hypertension type: essential hypertension Qualified Code(s): I10 - Essential (primary) hypertension (7) Hyperlipidemia: (8) Coronary artery disease: Plan Patient had PCI of mid RCA yesterday. Continue aspirin, plavix and low dose Xarelto she is on for her PAD. Thank you for involving us with care of this patient. Patient is stable to be discharged from cardiology standpoint. Please call with questions. Attestations 2 Medical Necessity Statement*: Care expected to cross 2 midnights. Coding Level of Care Code Acute Code for [facility] Diagnoses NSTEMI (non-ST elevated myocardial infarction) I21.4 Ischemic cardiomyopathy I25.5 Congestive heart failure I50.9 New onset left bundle branch block (LBBB) I44.7 T2DM (type 2 diabetes mellitus) E11.9 Hypertension I10 Hypertension type: essential hypertension Hyperlipidemia E78.5 Coronary artery disease I25.10
--- NOTE | 2024-10-17 11:00 | PC.NURSE ---
Patient states cardiology has cleared for her to go home, patient getting dressed at this time, patient educated on process of discharge, patient states she may have to sign AMA form if she is not discharged soon. After education, patient agrees she will wait a little longer.
--- NOTE | 2024-10-17 11:13 | P.DS_ITS ---
Discharge Providers Date of Admission: 10/16/24 03:35 Date of Discharge: October 17, 2024 Attending Provider at Admission: Bety Garcia MD Attending Provider at Discharge: Nkechi Dumont MD Primary Care Provider: Naty Esqueda APN Diagnoses at Discharge Discharge Diagnosis (1) NSTEMI (non-ST elevated myocardial infarction): Status: Acute (2) Ischemic cardiomyopathy: Status: Acute (3) Congestive heart failure: Status: Acute (4) New onset left bundle branch block (LBBB): Status: Acute (5) T2DM (type 2 diabetes mellitus): Status: Acute (6) Hypertension: Status: Acute Qualifiers: Hypertension type: essential hypertension Qualified Code(s): I10 - Essential (primary) hypertension (7) Hyperlipidemia: Status: Acute (8) Coronary artery disease: Status: Acute Reason for Visit Reason for Visit: CP Discharge Data Studies Completed and Pending Completed Studies During Hospitalization Category Date Time Status XR chest 1V portable [id number] Stat Exams 10/16/24 00:39 Completed CV. echo complete* [id number] Routine Ultrasound 10/16/24 05:02 Completed Pending at discharge Category Date Time Status [employer]GER request for service Routine Exams 10/16/24 07:55 Taken Platelet Count Q2D Lab 10/18/24 04:00 Ordered Platelet Count Q2D Lab 10/20/24 04:00 Ordered Radiology Impressions Chest X-Ray 10/16/24 00:39 IMPRESSION: No acute cardiopulmonary findings. Laboratory Results WBC 9.83 10^3/uL (3.29-11.43) 10/17/24 06:11 RBC 4.25 10^6/uL (3.85-5.65) 10/17/24 06:11 Hgb 9.50 g/dL (11.27-16.99) L 10/17/24 06:11 Hct 32.8 % (36-47) L 10/17/24 06:11 MCV 77.2 fl (85-98) L 10/17/24 06:11 MCH 22.4 pg (27-33) L 10/17/24 06:11 MCHC 29.0 g/dL (30-55) L 10/17/24 06:11 RDW 17.2 % (12.1-15.1) H 10/17/24 06:11 Plt Count 181 10^3/cmm (157-399) D 10/17/24 06:11 MPV 11.1 fL (7.4-10.4) H 10/17/24 06:11 Neut % (Auto) 77.7 % 10/17/24 06:11 Lymph % (Auto) 13.0 % 10/17/24 06:11 Leon % (Auto) 6.0 % 10/17/24 06:11 Eos % (Auto) 2.4 % 10/17/24 06:11 Baso % (Auto) 0.3 % 10/17/24 06:11 Neut # (Auto) 7.63 10^3/uL (1.8-7.7) 10/17/24 06:11 Lymph # (Auto) 1.3 10^3/uL (0.8-4.8) 10/17/24 06:11 Leon # (Auto) 0.6 10^3/uL (0.2-0.9) 10/17/24 06:11 Eos # (Auto) 0.2 10^3/uL (0.0-0.8) 10/17/24 06:11 Baso # (Auto) 0.0 10^3/uL (0.0-0.1) 10/17/24 06:11 Nucleated RBC % (auto) 0 % 10/17/24 06:11 Nucleated RBCs # 0.0 /100WBC 10/17/24 06:11 APTT 34.5 SECONDS (23.9-36.7) D 10/16/24 13:49 Sodium 138 mmol/L (136-145) 10/17/24 06:11 Potassium 4.3 mmol/L (3.5-5.1) 10/17/24 06:11 Chloride 105 mmol/L (98-107) 10/17/24 06:11 Carbon Dioxide 24 mmol/L (22-29) 10/17/24 06:11 Anion Gap 13.3 (5-19) 10/17/24 06:11 BUN 13 mg/dL (8-23) 10/17/24 06:11 Creatinine 0.9 mg/dL (0.5-0.9) 10/17/24 06:11 GFR Calculation 62.6 mL/min (90-130) L 10/17/24 06:11 Glucose 131 mg/dL (65-115) H 10/17/24 06:11 Estimat Average Glucose 189 10/16/24 00:16 Hemoglobin A1c 8.2 % (4.0-6.0) H 10/16/24 00:16 Calculated Osmolality 288 mOsm/kg (285-295) 10/17/24 06:11 Calcium 9.2 mg/dL (8.5-10.5) 10/17/24 06:11 Magnesium 2.1 mg/dL (1.7-2.3) 10/17/24 06:11 Total Bilirubin 0.2 mg/dL (0.15-1.2) 10/16/24 00:16 AST 22 U/L (0-32) 10/16/24 00:16 ALT 15 U/L (0-33) 10/16/24 00:16 Alkaline Phosphatase 90 U/L (35-105) 10/16/24 00:16 Troponin T Baseline 23 ng/L (0-10) H 10/16/24 00:16 Troponin T 120 Minute 26.74 ng/L (0-10) H 10/16/24 01:54 Delta Troponin T 3.74 ABS# (0-10) 10/16/24 01:54 Troponin T Hi Sens 6Hr 33.54 ng/L (0-10) H 10/16/24 06:03 Troponin T Hi Sens 6Hr Delta 10.54 ng/L (0-12) 10/16/24 06:03 NT-Pro-B Natriuret Pep 937 pg/mL (0-125) H 10/16/24 00:16 Total Protein 7.3 g/dL (6.6-8.7) 10/16/24 00:16 Albumin 4.9 g/dL (3.5-5.2) 10/16/24 00:16 Globulin 2.4 g/dL (1.3-4.6) 10/16/24 00:16 Urine Color Yellow (Yellow) 10/16/24 05:25 Urine Appearance Clear (CLEAR) 10/16/24 05:25 Urine pH 6.5 (5-7) 10/16/24 05:25 Ur Specific Lupton 1.034 (1.005-1.030) H 10/16/24 05:25 Urine Protein Trace (Negative) A 10/16/24 05:25 Urine Glucose (UA) 3+ (Normal) H 10/16/24 05:25 Urine Ketones Negative (Negative) 10/16/24 05:25 Urine Blood Trace (Negative) A 10/16/24 05:25 Urine Nitrate Negative (Negative) 10/16/24 05:25 Urine Bilirubin Negative (Negative) 10/16/24 05:25 Urine Urobilinogen 0.2 mg/dL (Negative) 10/16/24 05:25 Ur Leukocyte Esterase Negative (Negative) 10/16/24 05:25 Urine RBC 0-2 /hpf (0-2) 10/16/24 05:25 Urine WBC 0-5 /hpf (0-5) 10/16/24 05:25 Ur Squamous Epith Cells 0-5 /hpf (0-5) 10/16/24 05:25 Amorphous Sediment Not Reportable 10/16/24 05:25 Urine Bacteria None seen /hpf (NONE) 10/16/24 05: Hyaline Casts 0-4 /lpf H 10/16/24 05:25 Vitals Last Vital Signs Temp 97.9 F 10/17/24 08:30 Pulse 80 10/17/24 10:30 Resp 18 10/17/24 10:30 BP 115/60 10/17/24 10:30 Pulse Ox 90 10/17/24 10:30 O2 Del Method Room Air 10/17/24 10:30 Discharge Plan Discharge Patient Disposition: Home Condition: Stable Prescriptions: New clopidogrel 75 mg Tablet 75 mg PO DAILY Qty: 30 0RF Continued pantoprazole 40 mg Tablet,Delayed Release (Dr/Ec) 40 mg PO QAM potassium chloride 10 mEq tablet extended release 10 meq PO BEDTIME oxycodone-acetaminophen 5-325 mg tablet 1 tab PO Q8H PRN (Reason: Pain) nitroglycerin [Nitrostat] 0.4 mg Tablet, Sublingual 0.4 mg SUBLINGUAL Q5M PRN (Reason: Chest Pain) Rx Instructions: do not exceed 3 doses per episode cholecalciferol (vitamin D3) [Vitamin D3] 125 mcg (5,000 unit) Tablet 125 mcg PO QAM Jardiance 25 mg tablet 25 mg PO QAM furosemide 40 mg Tablet 20 mg PO DAILY@0800 Qty: 30 0RF atorvastatin 40 mg Tablet 80 mg PO BEDTIME Qty: 60 0RF metoprolol tartrate 25 mg tablet 12.5 mg PO Q12H Qty: 30 0RF sacubitril-valsartan [Entresto] 24-26 mg Tablet 1 tab PO BID Xarelto 2.5 mg Tablet 2.5 mg PO BID Qty: 60 0RF aspirin 81 mg Tablet,Delayed Release (Dr/Ec) 81 mg PO DAILY Qty: 30 0RF Discharge Orders: Discharge Order (Routine); Ordered 10/17/24 Ordered By: Nkechi Dumont Referrals: Naty Esqueda APN [Primary Care Provider] - 4-7 days Cintia Loyd NP [Nurse Practitioner] - 7-10 days Con Talbot M.D [Physician] - 1 month Discharge Diet: Advance as tolerated Discharge Activity: Resume usual activity Patient Instructions: Opioid Safety Discharge Attestations Status at Discharge: Cognitive status at discharge: cognitively intact , Behavioral status at discharge: cooperative , Coding Level of Care Code Acute Code for [facility] Fwd Diagnoses NSTEMI (non-ST elevated myocardial infarction) I21.4 Ischemic cardiomyopathy I25.5 Congestive heart failure I50.9 New onset left bundle branch block (LBBB) I44.7 T2DM (type 2 diabetes mellitus) E11.9 Hypertension I10 Hypertension type: essential hypertension Hyperlipidemia E78.5 Coronary artery disease I25.10
--- NOTE | 2024-10-17 12:20 | PC.NURSE ---
Patient brought to personal vehicle via wheelchair at 1218, IV access removed without complication. Education provided on home medications, home care post PCI, diet, follow up care and appointments, S/S to return to hospital or call 911. S/S of infection. Patient and family at bedside all confirm understanding of teachings. Cardiac stop light also included in DC paperwork. Patient and family had no questions.
== END 2024-10-17 12:23 | disposition home or self-care (01) | DRG 322 ==
LOC: ER 04:05 → ICU 05:01
PROVIDERS: Internal Medicine; Admitting Provider Internal Medicine; Emergency Provider General Practice; PCP Nurse Practitioner Family; Visit Provider Internal Medicine
PROC: 027034Z Dilation of Coronary Artery, One Artery with Drug-eluting Intraluminal Device, Percutaneous Approach (ICD-10-PCS; principal; 2024-10-16 08:30)
PROC: 027034Z Dilation of Coronary Artery, One Artery with Drug-eluting Intraluminal Device, Percutaneous Approach (ICD-10-PCS; 2024-10-16 08:30)
DX: I21.4 Non-ST elevation (NSTEMI) myocardial infarction (principal); I50.30 Unspecified diastolic (congestive) heart failure; I25.5 Ischemic cardiomyopathy; I11.0 Hypertensive heart disease with heart failure; I44.7 Left bundle-branch block, unspecified; E11.9 Type 2 diabetes mellitus without complications; E78.5 Hyperlipidemia, unspecified; I25.10 Atherosclerotic heart disease of native coronary artery without angina pectoris; I73.9 Peripheral vascular disease, unspecified; Z95.5 Presence of coronary angioplasty implant and graft; Z95.828 Presence of other vascular implants and grafts; Z79.82 Long term (current) use of aspirin; Z79.01 Long term (current) use of anticoagulants; Z79.84 Long term (current) use of oral hypoglycemic drugs
CPT/HCPCS: 36415; 71045; 80048; 80053; 81001; 83036; 83735; 83880; 84484; 85025; 85347; 85730; 93005; 93306; 93454; 96365; 96366; 96367; 96374; 96375; 96376; 99152; 99153; 99285; C1725; C1769; C1874; C1887; C1894; C9600; J1171; J1200; J1644; J2250; J2405; J2470; J3010; J3490; J7030; Q9967

== ENCOUNTER → 2024-10-26 17:07 | Outpatient (BNVA) | payer MEDICARE, OTHER, SELFPAY | PROVIDERS: PCP Nurse Practitioner Family; Visit Provider Nurse Practitioner Family | DX: I10 Essential (primary) hypertension | CPT/HCPCS: 36415; 80048; 85025; 99214 ==

== ENCOUNTER 2024-11-09 08:31 | Outpatient (CLI) | payer MEDICARE, OTHER, SELFPAY ==
--- NOTE | 2024-11-09 08:30 | USCV_ITS ---
Heather Young Age: 68 Gender: F : 1955 Exam Date: 11/09/2024 08:36 Ordering Phys: Cintia Loyd NP Technologist: Exam Location: [facility] [place] Indication: cca disease Risk Factors: Previous Vascular Surgery: Right Brachial BP: / Left Brachial BP: / Right Left Velocity (cm/s) Spectral Plaque Velocity (cm/s) Spectral Plaque Syst/Diast Broadening Syst/Diast Broadening 64.60/ 19.30 Prox CCA 76.20 / 21.60 56.90/ 15.40 Mid CCA 90.30 / 23.40 77.50/ 18.00 Hetro Distal CCA 105.40/ 24.90 Hetro 93.40/ 25.90 Hetro Prox ICA 92.50 / 28.10 Hetro 123.90/43.30 Mid ICA 123.40/ 41.00 119.60/43.30 Distal ICA 112.00/ 37.90 132.00 ECA 156.90 1.60 ICA/CCA 1.20 Antegrade Vertebral Antegrade 80.40/ 15.00 cm/s 59.90/ 15.80 cm/s Tri Subclavian Bi 74.00 67.65 CONCLUSIONS Right ICA stenosis <50%. Moderate atheromatous plaque right carotid bulb/ICA. Left ICA stenosis <50%. Moderate atheromatous plaque left carotid bulb/ICA. Intimal thickening in the common carotid arteries and internal carotid arteries bilaterally. Normal anterade Doppler flow noted in the right vertebral artery. Normal antegrade Doppler flow noted in the left vertebral artery. Evan Penny MD (Electronically Signed) Final Date: 09 November 2024 16:54 S
== END 2024-11-09 08:32 | disposition home or self-care (01) ==
LOC: RAD 08:31
PROVIDERS: PCP Nurse Practitioner Family; Visit Provider Nurse Practitioner Family
DX: R09.89 Other specified symptoms and signs involving the circulatory and respiratory systems (principal); I65.23 Occlusion and stenosis of bilateral carotid arteries; R93.1 Abnormal findings on diagnostic imaging of heart and coronary circulation
CPT/HCPCS: 93880; 93926

== ENCOUNTER → 2024-12-31 08:28 | Outpatient (BNVA) | payer MEDICARE, OTHER, SELFPAY | PROVIDERS: PCP Nurse Practitioner Family; Visit Provider Internal Medicine | DX: Z45.09 Encounter for adjustment and management of other cardiac device (principal) | CPT/HCPCS: 93291 ==